=== PATIENT | male | born 1950 | race Caucasian/White ===

== ENCOUNTER → 2017-02-08 | Outpatient (CLI) | payer BC ==
[~2017-02-08] MED LIST: ACET-1311 PO; AMOX875T PO; AMR2 PO; CETI10TA84 PO; DOXY100C2 PO; LSN25 PO; METF-384 PO; TPRSR/50 PO; TRIATAB3 PO; XRL20 PO
--- NOTE | 2017-02-08 12:55 | DIAGNOSTIC IMAGING REPORT ---
KUB HISTORY: N20.1 Ureteral [id number] COMPARISON: KUB 02/10/2016. Abdomen and pelvis CT 07/03/2016. FINDINGS: The bowel gas pattern is unremarkable. There are no dilated loops of small bowel to suggest an obstruction. Prior cholecystectomy. Calcifications in the deep pelvis likely represent phleboliths. These remain unchanged. There is an 8 mm stone within the lower pole of the left kidney. This has slightly increased in size. No right renal or ureteral calculi identified. No pneumoperitoneum or pneumatosis. IMPRESSION: Left-sided nephrolithiasis. The lower pole stone within the left kidney has slightly increased in size and now measures 8 mm. Electronically signed by: Domingo Quintero M.D. 02/08/2017 12:53 PM Dictated Date/Time: 02/08/2017 12:50 PM
--- NOTE | 2017-02-24 12:12 | CODING QUERY MEDICAL NECESSITY ---
CQSUPPORTING DIAGNOSIS NEEDED A supporting diagnosis is required for the test/procedure performed on this patient in order for us to be reimbursed by the patient's insurance. Please provide a supporting diagnosis for the following test/procedure listed below next to the test name along with your signature. *If there is no additional diagnosis for this patient that would support the following test/procedure please document that below next to the test/procedure. Test(s)/Procedure(s) that require a supporting diagnosis: DOS 02/08/17 PROSTATE SPECIFIC TEST Provider Signature: Date: Thank you France Martínez [employer] Information Management Once completed, please kindly fax back to [phone] For questions please call [phone]
== END | disposition home or self-care (01) ==
LOC: C.RAD 11:48
PROVIDERS: ATTEND Urology
DX: N20.1 Calculus of ureter (principal); R97.20 Elevated prostate specific antigen [PSA]; N40.0 Benign prostatic hyperplasia without lower urinary tract symptoms

== ENCOUNTER → 2017-04-11 | Outpatient (CLI) | payer BC | END | disposition home or self-care (01) | LOC: C.PATHSPEC 17:11 | PROVIDERS: ATTEND Urology | DX: R97.20 Elevated prostate specific antigen [PSA] (principal) ==

== ENCOUNTER 2017-06-18 08:34 | Emergency (ER) | payer BC ==
[~2017-06-18] VITALS: Ht 188 cm; Wt 101.4 kg
[~2017-06-18 08:34] MED LIST changes: -AMOX875T PO; -AMR2 PO; -LSN25 PO; -METF-384 PO; -TRIATAB3 PO; -XRL20 PO
[2017-06-18 08:38] VITALS: TEMP 36.7; Ht 188 cm; Wt 101.4 kg
[2017-06-18] MEDS ORDERED: AMR2 PO (08:52)
[2017-06-18] MEDS ORDERED: LSN25 PO (08:52)
[2017-06-18] MEDS ORDERED: XRL20 PO (08:52)
[2017-06-18] MEDS ORDERED: METF-384 PO (08:52)
[2017-06-18] MEDS ORDERED: TRIATAB3 PO (08:52)
[2017-06-18] MEDS ORDERED: OPTIRAY 320 IV PRN (09:15)
[2017-06-18 09:36] LABS: BASO % 0.3 %; BASO ABS # 0.03 K/uL (0-0.2); COMPLETE YES; EOS % 0.6 %; HEMATOCRIT 44.3 % (42-52); IG% 0.8 %; LYMPH % 24.2 %; LYMPH ABS # 2.26 K/uL (1.2-3.4); MEAN CELL VOLUME 90.4 fL (80-100); MEAN CORPUSCULAR HEMOGLOBIN 28.6 pg (25-34); MEAN CORPUSCULAR HGB CONC 31.6 g/dl (32-36); MEAN PLATELET VOLUME 9.6 fL (7.4-10.4); MONO % 11.4 %; NEUT % 62.7 %; PLATELET COUNT 356 K/uL (130-400); WHITE BLOOD COUNT 9.33 K/uL (4.8-10.8)
[2017-06-18 09:37] LABS: URINE APPEARANCE CLEAR (CLEAR); URINE BILIRUBIN NEG (NEG); URINE COLOR YELLOW; URINE NITRITE NEG (NEG); URINE SPECIFIC GRAVITY 1.026 (1.000-1.030); UROBILINOGEN NEG (NEG); ZZUR CULT IF INDIC CLEAN CATCH NO
[2017-06-18 09:43] LABS: MANUAL MICROSCOPIC REQUIRED? NO; REVIEW REQ? NO
[2017-06-18 09:44] LABS: BUN/CREATININE RATIO 18.5 (10-20); CALCIUM 9.6 mg/dl (8.5-10.1); CREATININE 1.3 mg/dl (0.60-1.40); POTASSIUM 4.2 mmol/L (3.5-5.1)
[2017-06-18 09:47] LABS: ALB/GLOB RATIO 0.7 (0.9-2)
[2017-06-18] MEDS ORDERED: ONDANSETRON INJ 2 MG/ML 2 ML VIAL IV STA (09:56)
--- NOTE | 2017-06-18 10:50 | DIAGNOSTIC IMAGING REPORT ---
ABD/PELVIS IV CONTRAST ONLY HISTORY: 66 years-old Male RUQ pain, palpable mass, hx liver abscess acute right upper quadrant abdominal pain with palpable mass. COMPARISON: CT abdomen and pelvis 07/15/2016 and 07/03/2016 TECHNIQUE: Multiple axial CT images of the abdomen and pelvis were obtained following the intravenous administration of 94 mL Optiray 320. A dose lowering technique was used consistent with the principals of SID. FINDINGS: There is minimal dependent basilar atelectasis. No pneumoperitoneum. The imaged inferior cardiac chambers are unremarkable. Scattered low attenuating lesions throughout the liver, largest of which measures 12 mm within the hepatic dome. Unchanged suggesting hepatic cysts. Prior cholecystectomy. Spleen, and adrenal glands are within normal limits. Circumscribed low attenuating cystic lesion of the posterior pancreatic body is seen on image 140 measuring 11 x 9 mm it is unchanged from comparison study 07/03/2016 suggesting sidebranch IPMN. Subcentimeter low attenuating lesions of the kidneys are too small to characterize and suggest cysts. Bilateral renal calculi are seen, largest of which measures 8 mm within the interpolar left kidney. No ureteral calculi or hydronephrosis. Layering calcifications are seen within the urinary bladder measuring up to 10 mm on the left. Prostate is enlarged. The abdominal aorta is normal in course and caliber. No bulky adenopathy. There is no bowel obstruction. Noninflamed colonic diverticula are present. The appendix appears normal. There is a thick-walled peripherally enhancing predominantly unilocular-appearing collection of the right paramedian abdominal wall, 5.4 x 8.4 x 6.1 cm with moderate degree of surrounding phlegmonous change and thickening of the right rectus musculature. This extends intra-abdominally with moderate degree of surrounding inflammatory stranding within the adjacent mesentery. There is wall thickening of the adjacent transverse colon, likely reactive. No pneumoperitoneum. Small ventral upper abdominal right paracentral subxiphoid fat filled hernia is seen, diastases 1.5 cm. Partially imaged soft tissue attenuating 2.3 x 1.7 cm lesion of the midline lower thoracic region at the level of T7 is noted, nonspecific. Bones are intact. IMPRESSION: 1. Large thick-walled collection of the right paramedian abdominal wall involving the rectus musculature with intraperitoneal extension measures up to 5.4 x 8.4 x 6.1 cm with moderate degree of surrounding phlegmonous change and thickening of the right rectus musculature is suspicious for abscess. 2. Wall thickening of the adjacent transverse colon is likely reactive. 3. No pneumoperitoneum or pneumatosis. 4. Bilateral nephrolithiasis. 5. Prior cholecystectomy. 6. Partially imaged circumscribed soft tissue attenuating lesion of the subcutaneous tissues overlying the midline at T7 is nonspecific and may reflect a sebaceous cyst. Correlate with clinical exam. The above report was generated using voice recognition software. It may contain grammatical, syntax or spelling errors. Electronically signed by: Meng Deluca M.D. 06/18/2017 10:48 AM Dictated Date/Time: 06/18/2017 10:34 AM
[2017-06-18] MEDS ORDERED: AMOX875T PO (12:19)
--- NOTE | 2017-06-18 12:20 | EMERGENCY ROOM VISIT NOTE ---
History First contact with patient: 08:42 Chief Complaint: ABDOMINAL PAIN Stated Complaint: ABD. PAIN, POSSIBLY A MASS Nursing Triage Summary: Patient reports right upper and mid abd pain denies any associated symptoms. Patient reports history of abcess on his liver a year ago states he had surgery at [facility] for that and has not had any problems since that time. Patient abd is mostly soft to palpation but there is a hard palpable area on right upper abd. History of Present Illness The patient is a 66 year old male who presents to the Emergency Room with complaints of right upper quadrant abdominal pain which began 2 days ago. The patient states that he has had a gradual onset of abdominal pain and palpable mass with past 2 days. He states the pain is a 2/10 at rest and increases to a 6/10 with bending over or moving. He denies any associated nausea/vomiting, changes in bowel movements, urinary symptoms or fevers. The patient has a history of an abscess on his liver which was drained at [facility] one year ago. He states he has had no issues for this since then. The patient has a history of cholecystectomy and IR drainage of the liver abscess, but no other abdominal surgeries. He denies IV drug use. Review of Systems A complete 10 point review of systems was reviewed with the patient with pertinent positives and negatives as per history of present illness. All else were negative. Past Medical/Surgical History Medical Problems: (1) [id number] (2) Acute cholecystitis (3) Atrial fibrillation (4) Diabetes (5) Flank pain (6) Flank pain (7) Hives (8) Kidney stone (9) Kidney stones (10) Mnire's disease Surgical Problems: (1) Hx of cholecystectomy Family History Cancer Diabetes mellitus Kidney disease Kidney stones Seizures Social History Smoking Status: Never Smoker Alcohol Use: none Drug Use: none Marital Status: Housing Status: lives with significant other Occupation Status: unemployed Current/Historical Medications Scheduled Amoxicillin & Pot Clavulanate (Augmentin 875-125 mg), 1 TAB PO BID Glimepiride (Glimepiride), 2 MG PO BID Lisinopril (Lisinopril), 2.5 MG PO DAILY Metformin Hcl (Glucophage), 1,000 MG PO BID Metoprolol Succinate (Metoprolol Succinate ER), 50 MG PO DAILY Rivaroxaban (Xarelto), 20 MG PO DAILY Triamterene/Hctz (Triamterene/Hctz 37.5-25MG), 1 TAB PO DAILY Scheduled PRN Cetirizine (Zyrtec), 10 MG PO DAILY PRN for ALLERGIC REACTION Physical Exam Vital Signs Date Time Temp Pulse Resp B/P (MAP) Pulse Ox O2 Delivery O2 Flow Rate FiO2 06/18/17 12:38 67 20 98/65 98 06/18/17 10:45 65 106/65 95 Room Air 06/18/17 08:38 36.7 70 18 118/88 94 Room Air Physical Exam VITALS: Vitals are noted on the nurse's note and reviewed by myself. Vital signs stable. GENERAL: This is a 66-year-old male, in no acute distress, nondiaphoretic, well- developed well-nourished. SKIN: No erythema or induration. No rashes. EYES: Pupils equal round and reactive to light and accommodation. MOUTH: Mucous membranes moist. HEART: Regular rate and rhythm without murmurs gallops or rubs. LUNGS: Clear to auscultation bilaterally without wheezes, rales or rhonchi. ABDOMEN: Positive bowel sounds x 4. There is a palpable mass to the right of the epigastric region with tenderness to palpation. The area is slightly warm to touch. There is no overlying erythema or induration. The abdomen is otherwise soft and nontender. NEURO: Patient was alert and oriented to person place and time. Medical Decision & Procedures ER Provider Diagnostic Interpretation: ABD/PELVIS IV CONTRAST ONLY HISTORY: 66 years-old Male RUQ pain, palpable mass, hx liver abscess acute right upper quadrant abdominal pain with palpable mass. COMPARISON: CT abdomen and pelvis 07/15/2016 and 07/03/2016 TECHNIQUE: Multiple axial CT images of the abdomen and pelvis were obtained following the intravenous administration of 94 mL Optiray 320. A dose lowering technique was used consistent with the principals of ALARA. FINDINGS: There is minimal dependent basilar atelectasis. No pneumoperitoneum. The imaged inferior cardiac chambers are unremarkable. Scattered low attenuating lesions throughout the liver, largest of which measures 12 mm within the hepatic dome. Unchanged suggesting hepatic cysts. Prior cholecystectomy. Spleen, and adrenal glands are within normal limits. Circumscribed low attenuating cystic lesion of the posterior pancreatic body is seen on image 140 measuring 11 x 9 mm it is unchanged from comparison study 07/03/2016 suggesting sidebranch IPMN. Subcentimeter low attenuating lesions of the kidneys are too small to characterize and suggest cysts. Bilateral renal calculi are seen, largest of which measures 8 mm within the interpolar left kidney. No ureteral calculi or hydronephrosis. Layering calcifications are seen within the urinary bladder measuring up to 10 mm on the left. Prostate is enlarged. The abdominal aorta is normal in course and caliber. No bulky adenopathy. There is no bowel obstruction. Noninflamed colonic diverticula are present. The appendix appears normal. There is a thick-walled peripherally enhancing predominantly unilocular-appearing collection of the right paramedian abdominal wall, 5.4 x 8.4 x 6.1 cm with moderate degree of surrounding phlegmonous change and thickening of the right rectus musculature. This extends intra-abdominally with moderate degree of surrounding inflammatory stranding within the adjacent mesentery. There is wall thickening of the adjacent transverse colon, likely reactive. No pneumoperitoneum. Small ventral upper abdominal right paracentral subxiphoid fat filled hernia is seen, diastases 1.5 cm. Partially imaged soft tissue attenuating 2.3 x 1.7 cm lesion of the midline lower thoracic region at the level of T7 is noted, nonspecific. Bones are intact. IMPRESSION: 1. Large thick-walled collection of the right paramedian abdominal wall involving the rectus musculature with intraperitoneal extension measures up to 5.4 x 8.4 x 6.1 cm with moderate degree of surrounding phlegmonous change and thickening of the right rectus musculature is suspicious for abscess. 2. Wall thickening of the adjacent transverse colon is likely reactive. 3. No pneumoperitoneum or pneumatosis. 4. Bilateral nephrolithiasis. 5. Prior cholecystectomy. 6. Partially imaged circumscribed soft tissue attenuating lesion of the subcutaneous tissues overlying the midline at T7 is nonspecific and may reflect a sebaceous cyst. Correlate with clinical exam. Laboratory Results 06/18/17 09:11 Red Blood Count 4.90, Mean Corpuscular Volume 90.4, Mean Corpuscular Hemoglobin 28.6, Mean Corpuscular Hemoglobin Concent 31.6, Mean Platelet Volume 9.6, Neutrophils (%) (Auto) 62.7, Lymphocytes (%) (Auto) 24.2, Monocytes (%) (Auto) 11.4, Eosinophils (%) (Auto) 0.6, Basophils (%) (Auto) 0.3, Neutrophils # (Auto ) 5.85, Lymphocytes # (Auto) 2.26, Monocytes # (Auto) 1.06, Eosinophils # (Auto ) 0.06, Basophils # (Auto) 0.03 06/18/17 09:11 Test 06/18/17 09:05 06/18/17 09:11 Urine Color YELLOW Urine Appearance CLEAR (CLEAR) Urine pH 5.0 (4.5-7.5) Urine Specific [place] 1.026 (1.000-1.030) Urine Protein NEG (NEG) Urine Glucose (UA) NEG (NEG) Urine Ketones NEG (NEG) Urine Occult Blood NEG (NEG) Urine Nitrite NEG (NEG) Urine Bilirubin NEG (NEG) Urine Urobilinogen NEG (NEG) Urine Leukocyte Esterase NEG (NEG) White Blood Count 9.33 K/uL (4.8-10.8) Red Blood Count 4.90 M/uL (4.7-6.1) Hemoglobin 14.0 g/dL (14.0-18.0) Hematocrit 44.3 % (42-52) Mean Corpuscular Volume 90.4 fL (80-100) Mean Corpuscular Hemoglobin 28.6 pg (25-34) Mean Corpuscular Hemoglobin Concent 31.6 g/dl (32-36) Platelet Count 356 K/uL (130-400) Mean Platelet Volume 9.6 fL (7.4-10.4) Neutrophils (%) (Auto) 62.7 % Lymphocytes (%) (Auto) 24.2 % Monocytes (%) (Auto) 11.4 % Eosinophils (%) (Auto) 0.6 % Basophils (%) (Auto) 0.3 % Neutrophils # (Auto) 5.85 K/uL (1.4-6.5) Lymphocytes # (Auto) 2.26 K/uL (1.2-3.4) Monocytes # (Auto) 1.06 K/uL (0.11-0.59) Eosinophils # (Auto) 0.06 K/uL (0-0.5) Basophils # (Auto) 0.03 K/uL (0-0.2) RDW Standard Deviation 48.2 fL (36.4-46.3) RDW Coefficient of Variation 14.5 % (11.5-14.5) Immature Granulocyte % (Auto) 0.8 % Immature Granulocyte # (Auto) 0.07 K/uL (0.00-0.02) Anion Gap 6.0 mmol/L (3-11) Est Creatinine Clear Calc Drug Dose 73.0 ml/min Estimated GFR () 66.8 Estimated GFR (Non- 57.7 BUN/Creatinine Ratio 18.5 (10-20) Calcium Level 9.6 mg/dl (8.5-10.1) Total Bilirubin 0.5 mg/dl (0.2-1) Aspartate Amino Transf (AST/SGOT) 14 U/L (15-37) Alanine Aminotransferase (ALT/SGPT) 16 U/L (12-78) Alkaline Phosphatase 57 U/L (45-117) Total Protein 7.8 gm/dl (6.4-8.2) Albumin 3.2 gm/dl (3.4-5.0) Globulin 4.6 gm/dl (2.5-4.0) Albumin/Globulin Ratio 0.7 (0.9-2) Lipase 147 U/L (73-393) Medications Administered Medications (Trade) Dose Ordered Sig/Tila Route Start Time Stop Time Status Last Admin Dose Admin Ondansetron HCl (Zofran Inj) 4 mg NOW STAT IV 06/18/17 09:56 06/18/17 09:57 DC 06/18/17 10:01 4 MG ED Course The patient was evaluated as above. Labs were drawn and IV access was obtained. Patient was medicated with 4 mg Zofran prior to CT. CT of the abdomen and pelvis was performed and read by radiology as above. Case was discussed with Dr. Mccollum, General surgery. He felt that the abscess should be drained by IR at [facility]. He does not feel this needs to be done on an emergent basis. Case was discussed with Dr. Conrad at [facility], who recommended sending the patient home on antibiotics. Their office will contact him for follow-up this week. Patient was reevaluated and findings were discussed. The patient was agreeable to this treatment plan. Discharge instructions were reviewed with the patient. The patient verbalized understanding of my assessment and treatment plan and was discharged home in good condition. Medical Decision Differential diagnosis includes intra-abdominal abscess, abdominal mass, diverticulitis, pneumoperitoneum, among others. The patient is a 66-year-old male who presents today complaining of abdominal pain. The patient was seen here in June of last year and at that time was diagnosed with a liver mass. He was transferred to [facility] for drainage and at that time was diagnosed with an abscess. He states he has had no issues with this since then. On exam today, the patient has a palpable mass in the abdomen. There are no overlying skin changes. Labs revealed no leukocytosis or concerning electrolyte abnormalities. CT showed an abscess within the abdominal rectus rectus muscle with extension into the peritoneum. He is afebrile and nontoxic in appearance. Case was discussed first with our general surgeon, then the general surgeon on-call at [facility], Dr. Conrad. She felt that as long as the patient was not septic and did not have overlying skin changes, he could be discharged home on antibiotics to follow-up in the office next week. She first recommended Cipro and Flagyl, however the patient has allergies to these. I discussed this with the pharmacist, who recommended Augmentin. The patient was advised to return here for overlying skin changes, fevers, vomiting , worsening pain or any other new/concerning symptoms. He was given a disc of his CT scan. Based on the patient's presentation and work up, I feel the patient is stable for outpatient treatment. The patient was educated to return to the emergency department for any worsening of their current condition or new/concerning symptoms. He will follow up with [facility]. The patient's case was reviewed with Dr. Villalta, ED attending physician, who agreed with my assessment and treatment plan. Medication Reconcilliation Current Medication List: was personally reviewed by me Blood Pressure Screening Patient's blood pressure: Normal blood pressure Impression Primary Impression: Abscess of abdominal wall Departure Information Dispostion Home / Self-Care Condition GOOD Prescriptions Amoxicillin & Pot Clavulanate (Augmentin 875-125 mg) 1 Tab Tab 1 TAB PO BID for 14 Days, #28 TAB Prov: Mee Cr PA-C 06/18/17 [address]errals Dragan Stevenson M.D. (PCP) Patient Instructions My [facility] Additional Instructions You were prescribed Augmentin to be taken twice daily as prescribed. This is an antibiotic. All antibiotics have the potential to cause diarrhea. Stop this medication and contact a medical provider if you were to develop any significant adverse side effects including: wheezing, shortness of breath, passing out, vomiting, or a diffuse rash. Always take antibiotics as directed and COMPLETE the ENTIRE course regardless of the improvement of your symptoms. For pain control, you can use the following [id number] medicines (if >12 yo): - Regular strength (325mg/tab) Tylenol (acetaminophen) 2 tabs every 4-6 hours as needed. Do not exceed 12 tablets in a 24 hour period. Avoid taking more than 4 grams (4000 mg) of Tylenol per day. This includes any other sources of acetaminophen you may take on a regular basis. - Regular strength (200 mg/tab) Advil (ibuprofen) 1-2 tabs every 4-6 hours as needed. Do not exceed a dose of 3200 mg per day. [facility] should be calling you early this week to schedule a follow-up appointment. Return to the emergency department immediately if you have worsening pain, skin changes (redness) overlying the mass, fevers, vomiting or any other new/ concerning symptoms.
[2017-06-18 12:38] VITALS: BP 98/65; PULSE 67; O2SAT 98
== END 2017-06-18 12:41 | disposition home or self-care (01) ==
LOC: C.EDB 08:35
DX: L02.211 Cutaneous abscess of abdominal wall (principal); E11.9 Type 2 diabetes mellitus without complications; I48.91 Unspecified atrial fibrillation; H81.09 Meniere's disease, unspecified ear; Z87.442 Personal history of urinary calculi; Z90.49 Acquired absence of other specified parts of digestive tract; Z98.890 Other specified postprocedural states; Z83.3 Family history of diabetes mellitus; Z84.1 Family history of disorders of kidney and ureter; Z82.0 Family history of epilepsy and other diseases of the nervous system; Z79.01 Long term (current) use of anticoagulants; Z79.84 Long term (current) use of oral hypoglycemic drugs

== ENCOUNTER → 2017-06-30 | Outpatient (CLI) | payer BC ==
[~2017-06-30] MED LIST changes: -ACET-1311 PO; +AMOX875T PO; +AMR2 PO; -DOXY100C2 PO; +LSN25 PO; +METF-384 PO; +TRIATAB3 PO; +XRL20 PO
--- NOTE | 2017-06-30 09:16 | DIAGNOSTIC IMAGING REPORT ---
ABDOMEN LIMITED (US) CLINICAL HISTORY: 66 years-old Male presenting with INTERABDOMINAL ABSCESS, CHECK FOR RESOLUTION. TECHNIQUE: Real-time grayscale ultrasound imaging of the right abdomen was performed for a focal examination at the site of clinical interest. Color Doppler was also performed. COMPARISON: Correlation made to CT from 06/18/2017. FINDINGS: At the site of clinical concern in the superficial right abdomen a drain is noted within a collapsed hypoechoic collection measuring 7.6 x 1.7 x 9.8 cm. This collection is avascular and consistent with known abscess. In comparison to prior CT, the AP dimension has significantly decreased with reduction of overall volume. IMPRESSION: 1. Interval decreased volume of the superficial right abdominal abscess with a drain in place. Electronically signed by: Manny Whitfield M.D. 06/30/2017 9:15 AM Dictated Date/Time: 06/30/2017 9:12 AM
== END | disposition home or self-care (01) ==
LOC: C.ULTR 08:27
PROVIDERS: ATTEND Surgery Surgical Oncology
DX: K65.1 Peritoneal abscess (principal)

== ENCOUNTER 2017-11-12 10:08 | Emergency (ER) | payer BC ==
[~2017-11-12] VITALS: Ht 188 cm; Wt 110.5 kg
[~2017-11-12 10:08] MED LIST changes: -AMOX875T PO
[2017-11-12 10:19] VITALS: TEMP 36.4; Ht 188 cm; Wt 110.5 kg
[2017-11-12] MEDS ORDERED: ACET325T96 PO (10:37)
--- NOTE | 2017-11-12 11:04 | DIAGNOSTIC IMAGING REPORT ---
R KNEE 3 VIEWS CLINICAL HISTORY: Right knee pain following injury. COMPARISON: None FINDINGS: Alignment of the right knee is anatomic. No acute fracture is identified. There is a small right knee joint effusion. There is moderate pre and infrapatellar soft tissue swelling. Extensive vascular calcification is present. There is mild osteophytosis of the right knee. IMPRESSION: 1. No acute fracture. 2. Small right knee joint effusion. 3. Moderate pre and infrapatellar soft tissue swelling. Electronically signed by: Jim Mac M.D. 11/12/2017 11:03 AM Dictated Date/Time: 11/12/2017 11:01 AM
[2017-11-12] MEDS ORDERED: CEPH500C PO (11:36)
[2017-11-12 11:49] VITALS: BP 121/79; PULSE 68; O2SAT 95
--- NOTE | 2017-11-12 17:16 | EMERGENCY ROOM VISIT NOTE ---
History First contact with patient: 10:22 Chief Complaint: KNEEPAIN Stated Complaint: R KNEE PAIN History of Present Illness The patient is a 66 year old male who presents to the Emergency Room with complaints of persistent right knee bruising and swelling. The patient reports that he tripped and fell 2 days ago while playing pickle ball. He went to the [facility] [address] [facility] walk-in clinic this morning and was referred here for possible increasing bleeding secondary to Xarelto use. The patient has a history of atrial fibrillation. The patient reports that most of the pain is on the front of the knee. He denies any pain extending into the leg or thigh. Denies paresthesias or numbness of the right lower extremity. The patient rates his discomfort a 4 out of 10. The patient has been taking Tylenol 325 mg as needed, and has had decent pain relief with this treatment. Review of Systems 10 system review was performed and was negative except for pertinent positives and negatives as indicated in history of present illness Past Medical/Surgical History Medical Problems: (1) [address] (2) Acute cholecystitis (3) Atrial fibrillation (4) Diabetes (5) Flank pain (6) Flank pain (7) Hives (8) Kidney stone (9) Kidney stones (10) Mnire's disease Surgical Problems: (1) Hx of cholecystectomy Family History Cancer Diabetes mellitus Kidney disease Kidney stones Seizures Social History Smoking Status: Never Smoker Alcohol Use: none Drug Use: none Marital Status: Housing Status: lives with significant other Occupation Status: unemployed Current/Historical Medications Scheduled Cephalexin Monohydrate (Keflex), 500 MG PO QID Glimepiride (Glimepiride), 2 MG PO BID Lisinopril (Lisinopril), 2.5 MG PO DAILY Metformin Hcl (Glucophage), 1,000 MG PO BID Metoprolol Succinate (Metoprolol Succinate ER), 50 MG PO DAILY Rivaroxaban (Xarelto), 20 MG PO DAILY Triamterene/Hctz (Triamterene/Hctz 37.5-25MG), 1 TAB PO DAILY Scheduled PRN Acetaminophen Tab (Tylenol), 650 MG PO UD PRN for Pain Cetirizine (Zyrtec), 10 MG PO DAILY PRN for ALLERGIC REACTION Physical Exam Vital Signs Date Time Temp Pulse Resp B/P (MAP) Pulse Ox O2 Delivery O2 Flow Rate FiO2 11/12/17 11:49 68 18 121/79 95 Room Air 11/12/17 10:19 36.4 69 17 118/73 94 Room Air Physical Exam CONSTITUTIONAL: Healthy and well nourished. Alert and oriented X 3 with positive affect. Patient does not appear in any acute distress. HEENT: Normocephalic, atraumatic. Pupils equal, round and reactive. NECK: Full active range of motion without discomfort. MUSCULOSKELETAL: Examination of the right knee shows an anterolateral hematoma with ecchymosis. No open wounds or erythema noted. No obvious joint effusion appreciated. The patient has passive range of motion of 90. Negative anterior draw, negative posterior draw. Collateral ligaments are intact. No popliteal masses. Patient has no significant peripatellar tenderness to palpation. Patient is able to straight leg raise. Pedal pulses are intact. INTEGUMENTARY: No rash or other significant dermatologic conditions noted. NEUROLOGIC: No focal neurologic deficits noted. Right lower extremity is sensory intact. Medical Decision & Procedures ER Provider Diagnostic Interpretation: My interpretation of right knee x-rays does not show any acute fractures or dislocations. A small joint effusion is noted, with other soft tissue edema. Radiologist report is as follows: R KNEE 3 VIEWS CLINICAL HISTORY: Right knee pain following injury. COMPARISON: None FINDINGS: Alignment of the right knee is anatomic. No acute fracture is identified. There is a small right knee joint effusion. There is moderate pre and infrapatellar soft tissue swelling. Extensive vascular calcification is present. There is mild osteophytosis of the right knee. IMPRESSION: 1. No acute fracture. 2. Small right knee joint effusion. 3. Moderate pre and infrapatellar soft tissue swelling. ED Course Patient history and physical exam were performed. Nurse's notes were reviewed. Vital signs were reviewed and were normal. The patient refused any analgesics on initial exam. X-rays of the right knee shows a small joint effusion without any obvious fracture or dislocation. The patient was advised that his clinical exam is most consistent with an anterior hematoma. However, and cannot rule out the possibility of other joint injury. An Irwin wrap and knee immobilizer were applied. The patient was encouraged to intermittently apply ice to the knee. Tylenol if needed for additional pain relief. The patient refused any further prescription analgesics. He was encouraged to follow-up with orthopedics for further reevaluation and management. The patient was happy with plan of care, voiced understanding of all discharge instructions, and denied any significant pain at the conclusion of my exam. Medical Decision Medication Reconcilliation Current Medication List: was personally reviewed by me Blood Pressure Screening Patient's blood pressure: Normal blood pressure Impression Primary Impression: Traumatic hematoma of right knee Departure Information Prescriptions Cephalexin Monohydrate (Keflex) 500 Mg Cap 500 MG PO QID for 7 Days, #28 CAP Prov: Orville Jennings PA 11/12/17 Referrals Dragan Stevenson M.D. (PCP) Patient Instructions My [facility] Problem Qualifiers Primary Impression: Traumatic hematoma of right knee Encounter type: initial encounter Qualified Codes: S80.01XA - Contusion of right knee, initial encounter
== END 2017-11-12 11:50 | disposition home or self-care (01) ==
LOC: C.EDB 10:10 → C.EDC 11:50
DX: S80.01XA Contusion of right knee, initial encounter (principal); W18.09XA Striking against other object with subsequent fall, initial encounter; Y93.89 Activity, other specified; Y99.8 Other external cause status; I48.91 Unspecified atrial fibrillation; E11.9 Type 2 diabetes mellitus without complications; H81.09 Meniere's disease, unspecified ear; Z87.442 Personal history of urinary calculi; Z90.49 Acquired absence of other specified parts of digestive tract; Z83.3 Family history of diabetes mellitus; Z84.1 Family history of disorders of kidney and ureter; Z82.0 Family history of epilepsy and other diseases of the nervous system; Z79.01 Long term (current) use of anticoagulants; Z79.84 Long term (current) use of oral hypoglycemic drugs

== ENCOUNTER → 2018-05-10 | Outpatient (CLI) | payer OTHER ==
[~2018-05-10] MED LIST changes: +ACET-1693 PO
--- NOTE | 2018-05-10 16:05 | DIAGNOSTIC IMAGING REPORT ---
KUB HISTORY: Left-sided NEPHROLITHIASIS COMPARISON: KUB 02/08/2017. FINDINGS: The bowel gas pattern is unremarkable. There are no dilated loops of small bowel to suggest an obstruction. Slight increase in size in the 9 mm stone within the lower pole the left kidney. No definite right renal calculi. Cholecystectomy. No ureteral calculi. Calcifications in the deep pelvis likely represent phleboliths. No pneumoperitoneum or pneumatosis. IMPRESSION: Slight increase in size in the 9 mm stone within the lower pole of the left kidney. No ureteral calculi. Electronically signed by: Domingo Quintero M.D. 05/10/2018 4:03 PM Dictated Date/Time: 05/10/2018 4:02 PM
== END | disposition home or self-care (01) ==
LOC: C.RAD 15:22
PROVIDERS: ATTEND Nurse Practitioner Adult Health
DX: N20.0 Calculus of kidney (principal)

== ENCOUNTER 2021-11-14 12:41 | Inpatient (IN) ==
[2021-11-14] MEDS ORDERED: MoRPHine SULFATE 4 MG/ML 1 ML CARP\\VIAL IV PRN (13:27)
[2021-11-14] MEDS ORDERED: ONDANSETRON INJ 2 MG/ML 2 ML VIAL IV STA (13:27)
[2021-11-14] MEDS ORDERED: SODIUM CHLORIDE 0.9% 1000ML 1,000 ML IV STA (13:27)
--- NOTE | 2021-11-14 13:34 | Emergency Department Note ---
Impression & Plan Acute pyelonephritis, Hydronephrosis, Atrial fibrillation with rapid ventricular response, Acute hyperglycemia ED Provider Note NAME: BEATRIS CHUN AGE: 70 SEX: M : 1950 ARRIVES VIA: Walk-In INFORMANT: Patient, ED PROVIDER(S): Dragan Croea DO CHIEF COMPLAINT: Generalized illness HPI: The patient is a 70-year-old male who presented to emergency department for an evaluation of generalized illness. The patient has a history of a large kidney stone that was on the left. This was treated with lithotripsy. He had multiple stone fragments removed by urology. He then had a stent placed. The patient had the stent removed on Tuesday of this week. He states that ever since that time he has not been doing well. He feels though his blood sugars been elevated. He is not been noticing any fevers. He noticed some flank pain initially when the stent was removed but at this time he complains of no flank pain. The patient has had some nausea but no vomiting. He has had decreased p.o. intake. He is noticed some elevation in his blood sugar readings. He called urology and was started on an antibiotic. He was received 1 dose of the antibiotic. He called and was referred to the emergency department today for further evaluation. ROS: See above HPI for pertinent positives & negatives. A total of 10 systems reviewed and were otherwise negative. PAST MEDICAL HISTORY: See Below PAST SURGICAL HISTORY: See Below FAMILY HISTORY: See Below SOCIAL HISTORY: See Below HOME MEDICATIONS: See Below ALLERGIES: See Below VITALS: See Below PHYSICAL EXAMINATION: GENERAL: The patient is awake and alert. He is somewhat listless appearing but does not appear to be uncomfortable. EYES: The conjunctivae are clear. The pupils are round and reactive. EARS, NOSE, MOUTH AND THROAT: The nose is without any evidence of any deformity. NECK: The neck is nontender and supple. RESPIRATORY: Normal respiratory effort is noted there is no evidence of wheezing rhonchi or rales CARDIOVASCULAR: Regular rate and rhythm noted there no murmurs rubs or gallops normal S1 normal S2. GASTROINTESTINAL: The abdomen is soft. Abdomen is nontender. BACK: No midline tenderness or or step-off noted range of motion in flexion extension as well as rotation no signs of muscle spasm noted MUSCULOSKELETAL/EXTREMITIES: There is no evidence of gross deformity full range of motion is noted in the hips and shoulders. SKIN: There is no obvious evidence of any rash. There are no petechiae, pallor or cyanosis noted. NEUROLOGIC: Patient is awake and oriented x3. Strength was symmetric. MEDICAL DECISION MAKING: The patient is a 70-year-old male who presented to emergency department for an evaluation of generalized weakness. The patient has a history of kidney stones. He recently had lithotripsy with stent placement. The stent was recently removed a few days ago. The patient has had generalized weakness and not feeling well. He was found to have borderline low blood pressure on arrival. He was treated with IV fluids. His urinalysis appears to be consistent with infection. He was treated with IV antibiotics. I discussed the patient's laboratory and radiographic studies with him. IV hydration he was able to receive a dose of calcium channel vinicius for the rapid atrial fibrillation. He continued to have episodes of A. fib with RVR. There was also some aberrancy noted. I discussed this case with the on-call [facility] urologist. I also will discuss his case with the [facility] hospitalist group. I feel the patient may benefit from inpatient management given his history of diabetes and atrial fibrillation. He is currently not taking his blood thinner as it was held for the procedure. Triage Nursing notes reviewed. Prior medical records reviewed Vital Signs: reviewed and remarkable for tachycardia and fluctuating blood pressure. Differential diagnosis: Infection, dehydration, metabolic abnormality, hypo/hyperglycemia, electrolyte disturbance, anemia, hypoxia, cardiac sources, intracerebral event, toxicologic, neurologic, as well as other pathologies. ER treatment provided: See below Diagnostics interpreted by me: ECG: EKG was obtained in the emergency department. My interpretation is atrial fibrillation at 165 bpm. No PVCs were noted. Anterior Q waves were appreciated with poor R wave progression. This was compared to a tracing from 10/28/2021. Rapid atrial fibrillation has replaced sinus rhythm compared to the earlier tracing. A second tracing was obtained in the emergency department. The second tracing reveals sinus tachycardia at 103 bpm. Ectopic beats were noted. The QRS morphology appears change compared to the earlier tracing. Cardiac Monitoring: An order was placed for continuous cardiac monitoring. The monitor shows a rate of 149 bpm with rapid atrial fibrillation. Laboratory studies: As stated above and show below. Imaging studies: See below Consultation(s): I discussed this case with Dr. Harrington who is on-call for urology. I discussed this case with the [facility] hospitalist group. Past Med/Surg History Medical History BPH (benign prostatic hyperplasia) Degenerative arthritis of knee, bilateral Diabetes Hypertension Kidney stones Mnire's disease Obesity On anticoagulant therapy Paroxysmal atrial fibrillation Postoperative urgent ava in Jul 2015- asymptomatic episodes noted on loop recorder. Follows with Dr. Larkin Surgical History History of cholecystectomy History of cystoscopy with insertion of ureteral stent; history of lithotripsy History of prostate biopsy History of removal of ureteral stent History of tonsillectomy History of wisdom tooth extraction Status post placement of implantable loop recorder Implanted 2014 and explanted Oct 2018 Family History Father Cancer Other No family history of adverse response to anesthesia Social History Smoking Status: Never smoker Second Hand Exposure: No; Hx Alcohol Use: Yes Hx Substance Use: No Preferred Language: Upper Sorbian Communication Ability: Effective Consulting Practice Director Required: No Beliefs That Will Affect Care: None Current Living Situation: Spouse Feels Safe at Home: Yes Assistive Devices: Glasses Allergies Allergies Allergy/AdvReac Type Severity Reaction Status Date / Time Iodinated Contrast Media Allergy Severe NAUSEA & Verified 11/14/21 14:54 VOMIT pollen extracts Allergy Intermediate congestion Verified 11/14/21 14:54 adhesive Allergy Unknown RASH/BLISTE Verified 11/14/21 14:54 RS grass pollen Allergy Unknown Verified 11/14/21 14:54 tree and shrub pollen Allergy Unknown Verified 11/14/21 14:54 latex Allergy Rash Verified 11/14/21 14:54 ciprofloxacin AdvReac Intermediate DISORIENTAT Verified 11/14/21 14:54 ION metronidazole AdvReac Intermediate DISORIENTAT Verified 11/14/21 14:54 ION Home Meds Home Medications Medication Instructions Recorded Confirmed diclofenac sodium 75 mg 75 mg PO BID PRN 03/23/21 11/14/21 tablet,delayed release ciclopirox 0.77 % topical gel 1 applic TOPICAL BID 08/10/21 11/14/21 cetirizine 10 mg tablet (Zyrtec) 10 mg PO DAILY PRN 10/30/21 11/14/21 lisinopril 2.5 mg tablet 2.5 mg PO QPM 10/30/21 11/14/21 metformin 1,000 mg tablet 500 mg PO BID 10/30/21 11/14/21 metoprolol succinate 50 mg 50 mg PO QPM 10/30/21 11/14/21 tablet,extended release 24 hr rivaroxaban 20 mg tablet (Xarelto) 20 mg PO QPM 10/30/21 11/14/21 tamsulosin 0.4 mg capsule 0.4 mg PO QPM 10/30/21 11/14/21 triamterene 37.5 1 cap PO QPM 10/30/21 11/14/21 mg-hydrochlorothiazide 25 mg capsule acetaminophen 500 mg tablet 1,000 mg PO Q6H PRN 11/14/21 11/14/21 (Tylenol Extra Strength) insulin glargine 100 unit/mL (3 16 unit SUBCUT PM 11/14/21 11/14/21 mL) subcutaneous pen (Lantus Solostar U-100 Insulin) Previous Rx's Medication Instructions Recorded oxycodone-acetaminophen 7.5 mg-325 1 tab PO Q8H PRN #7 tab 11/05/21 mg tablet (Percocet) phenazopyridine 200 mg tablet 200 mg PO Q8H PRN #10 tab 11/05/21 (Pyridium) sulfamethoxazole 800 1 tab PO BID #10 tab 11/14/21 mg-trimethoprim 160 mg tablet (Bactrim DS) Results & Data (ED) Vital Signs Vital Signs - 24 hr 11/14/21 12:50 11/14/21 12:58 11/14/21 13:07 Temperature 36.9 C Temperature Source Temporal Artery Scan Oral Pulse Rate 56 L 99 H Pulse Rate from SpO2 Sensor 59 L Respiratory Rate 20 14 24 Respiratory Effort / Characteristics Non-Labored Respiratory Depth Normal Normal Blood Pressure 104/61 Blood Pressure Mean 75 Pulse Oximetry 96 96 96 Oxygen Delivery Method Room Air Sepsis Recent Fever Within 48 Hours No Sepsis New/Unexplained Change in Mental Status N/A Sepsis Action Taken by Nursing No Action Required 11/14/21 13:10 11/14/21 13:20 11/14/21 13:30 Temperature Temperature Source Pulse Rate 100 H 91 H 91 H Pulse Rate from SpO2 Sensor 61 80 67 Respiratory Rate 14 23 24 Respiratory Effort / Characteristics Respiratory Depth Blood Pressure 105/53 L Blood Pressure Mean 70 Pulse Oximetry 95 95 97 Oxygen Delivery Method Sepsis Recent Fever Within 48 Hours Sepsis New/Unexplained Change in Mental Status Sepsis Action Taken by Nursing 11/14/21 13:40 11/14/21 13:50 11/14/21 13:58 Temperature Temperature Source Pulse Rate 89 92 H Pulse Rate from SpO2 Sensor 64 86 Respiratory Rate 19 23 Respiratory Effort / Characteristics Respiratory Depth Blood Pressure Blood Pressure Mean Pulse Oximetry 94 94 95 Oxygen Delivery Method Room Air Sepsis Recent Fever Within 48 Hours Sepsis New/Unexplained Change in Mental Status Sepsis Action Taken by Nursing 11/14/21 14:00 11/14/21 14:10 11/14/21 14:20 Temperature Temperature Source Pulse Rate 155 H 89 89 Pulse Rate from SpO2 Sensor 139 H 77 81 Respiratory Rate 24 19 22 Respiratory Effort / Characteristics Respiratory Depth Blood Pressure 123/68 Blood Pressure Mean 86 Pulse Oximetry 95 94 95 Oxygen Delivery Method Sepsis Recent Fever Within 48 Hours Sepsis New/Unexplained Change in Mental Status Sepsis Action Taken by Nursing 11/14/21 14:30 11/14/21 15:10 11/14/21 15:11 Temperature Temperature Source Pulse Rate 87 149 H 148 H Pulse Rate from SpO2 Sensor 55 L 149 H Respiratory Rate 22 24 27 H Respiratory Effort / Characteristics Respiratory Depth Blood Pressure 145/81 H 108/82 Blood Pressure Mean 102 90 Pulse Oximetry 94 95 Oxygen Delivery Method Sepsis Recent Fever Within 48 Hours Sepsis New/Unexplained Change in Mental Status Sepsis Action Taken by Nursing 11/14/21 15:20 11/14/21 15:30 11/14/21 15:40 Temperature Temperature Source Pulse Rate 150 H 149 H 147 H Pulse Rate from SpO2 Sensor 149 H 148 H 148 H Respiratory Rate 23 23 23 Respiratory Effort / Characteristics Respiratory Depth Blood Pressure 110/84 Blood Pressure Mean 92 Pulse Oximetry 95 94 94 Oxygen Delivery Method Sepsis Recent Fever Within 48 Hours Sepsis New/Unexplained Change in Mental Status Sepsis Action Taken by Nursing 11/14/21 15:50 11/14/21 16:00 11/14/21 16:13 Temperature Temperature Source Pulse Rate 148 H 147 H 144 H Pulse Rate from SpO2 Sensor 150 H 148 H Respiratory Rate 27 H 27 H Respiratory Effort / Characteristics Respiratory Depth Blood Pressure 141/92 H Blood Pressure Mean 108 Pulse Oximetry 94 91 Oxygen Delivery Method Sepsis Recent Fever Within 48 Hours Sepsis New/Unexplained Change in Mental Status Sepsis Action Taken by Nursing 11/14/21 16:20 Temperature Temperature Source Pulse Rate 149 H Pulse Rate from SpO2 Sensor 150 H Respiratory Rate 26 H Respiratory Effort / Characteristics Respiratory Depth Blood Pressure Blood Pressure Mean Pulse Oximetry 95 Oxygen Delivery Method Sepsis Recent Fever Within 48 Hours Sepsis New/Unexplained Change in Mental Status Sepsis Action Taken by Detention Medications Current Medication List: was personally reviewed by me Laboratory Data Attestation: I reviewed the patient's lab results. Result diagrams: 11/14/21 13:55 11/14/21 13:55 Lab Results 11/14/21 11/14/21 11/14/21 Range/Units 13:05 13:55 13:55 WBC 20.58 H (4.8-10.8) K/uL RBC 4.00 L (4.7-6.1) M/uL Hgb 12.8 L (14.0-18.0) g/dL Hct 38.0 L (42-52) % MCV 95.0 (80-100) fL MCH 32.0 (25-34) pg MCHC 33.7 (32-36) g/dL RDW Std Deviation 48.3 H (36.4-46.3) fL RDW Coeff of Ministerio 14.0 (11.5-14.5) % Plt Count 210 (130-400) K/uL MPV 10.2 (7.4-10.4) fL Immature Gran % (Auto) 0.4 % Neut % (Auto) 80.1 % Lymph % (Auto) 6.9 % [place] % (Auto) 12.5 % Eos % (Auto) 0.0 % Baso % (Auto) 0.1 % Neut # (Auto) 16.49 H (1.4-6.5) K/uL Lymph # (Auto) 1.41 (1.2-3.4) K/uL [place]ett # (Auto) 2.57 H (0.11-0.59) K/uL Eos # (Auto) 0.00 (0-0.5) K/uL Baso # (Auto) 0.03 (0-0.2) K/uL Immature Gran # (Auto) 0.08 H (0.00-0.02) K/uL ESR (0-20) mm/hr PT 11.5 (9.0-12.0) Seconds INR 1.1 (0.9-1.1) APTT 27.6 (21.0-31.0) Seconds PTT Ratio 1.0 VBG pH (7.36-7.41) VBG pCO2 (38-50) mmHg VBG pO2 mmHg VBG HCO3 mmol/L VBG O2 Saturation % VBG Base Excess mEq/L Barometric Pressure mm/Hg Sodium (136-145) mmol/L Potassium (3.5-5.1) mmol/L Chloride (98-107) mmol/L Carbon Dioxide (21-32) mmol/L Anion Gap (3-11) BUN (6-23) mg/dl Creatinine (0.6-1.4) mg/dl Est Cr Clr Drug Dosing ml/min Est GFR ( Amer) ml/min Est GFR (Non-Af Amer) ml/min BUN/Creatinine Ratio (10-20) Glucose (70-99(Fasting)) mg/dl Calcium (8.5-10.1) mg/dl Magnesium (1.7-2.4) mg/dl Total Bilirubin (0.2-1.0) mg/dl AST (13-39) U/L ALT (7-52) U/L Alkaline Phosphatase (34-104) U/L Troponin I (0-0.04) ng/ml C-Reactive Protein (0-0.5) mg/dl Total Protein (6.0-8.3) gm/dl Albumin (3.4-5.0) gm/dl Globulin (2.5-4.0) gm/dl Albumin/Globulin Ratio (0.9-2) Lipase (11-82) U/L Urine Color Brown Urine Appearance Turbid A (Clear) Urine pH 5.0 (4.5-7.5) Ur Specific [place] 1.020 (1.000-1.030) Urine Protein 2+ H (Negative) Urine Glucose (UA) 2+ H (Negative) Urine Ketones Negative (Negative) Urine Blood 3+ H (Negative) Urine Nitrite Positive A (Negative) Urine Bilirubin 1+ H (Negative) Urine Urobilinogen Negative (Negative) Ur Leukocyte Esterase 2+ H (Negative) Urine WBC (Auto) 10-30 H (0-5) /hpf Urine RBC (Auto) >30 H (0-4) /hpf U Hyaline Cast (Auto) 1-5 (0-5) /lpf U Epithel Cells (Auto) 0-5 (0-5) /lpf Urine Bacteria (Auto) 2+ H (Negative) SARS-CoV-2, RNA, NAAT (NEGATIVE) 11/14/21 11/14/21 11/14/21 Range/Units 13:55 15:11 15:16 WBC (4.8-10.8) K/uL RBC (4.7-6.1) M/uL Hgb (14.0-18.0) g/dL Hct (42-52) % MCV (80-100) fL MCH (25-34) pg MCHC (32-36) g/dL RDW Std Deviation (36.4-46.3) fL RDW Coeff of Ministerio (11.5-14.5) % Plt Count (130-400) K/uL MPV (7.4-10.4) fL Immature Gran % (Auto) % Neut % (Auto) % Lymph % (Auto) % Crockett % (Auto) % Eos % (Auto) % Baso % (Auto) % Neut # (Auto) (1.4-6.5) K/uL Lymph # (Auto) (1.2-3.4) K/uL [place] # (Auto) (0.11-0.59) K/uL Eos # (Auto) (0-0.5) K/uL Baso # (Auto) (0-0.2) K/uL Immature Gran # (Auto) (0.00-0.02) K/uL ESR (0-20) mm/hr PT (9.0-12.0) Seconds INR (0.9-1.1) APTT (21.0-31.0) Seconds PTT Ratio VBG pH (7.36-7.41) VBG pCO2 (38-50) mmHg VBG pO2 mmHg VBG HCO3 mmol/L VBG O2 Saturation % VBG Base Excess mEq/L Barometric Pressure mm/Hg Sodium 131 L (136-145) mmol/L Potassium 4.2 (3.5-5.1) mmol/L Chloride 98 (98-107) mmol/L Carbon Dioxide 24 (21-32) mmol/L Anion Gap 9 (3-11) BUN 39 H (6-23) mg/dl Creatinine 2.10 H (0.6-1.4) mg/dl Est Cr Clr Drug Dosing 44.0 ml/min Est GFR ( Amer) 36.4 ml/min Est GFR (Non-Af Amer) 31.4 ml/min BUN/Creatinine Ratio 18.6 (10-20) Glucose 316 H* (70-99(Fasting)) mg/dl Calcium 8.7 (8.5-10.1) mg/dl Magnesium 1.6 L (1.7-2.4) mg/dl Total Bilirubin 1.3 H (0.2-1.0) mg/dl AST 15 (13-39) U/L ALT 19 (7-52) U/L Alkaline Phosphatase 50 (34-104) U/L Troponin I < 0.03 (0-0.04) ng/ml C-Reactive Protein 26.52 H (0-0.5) mg/dl Total Protein 6.9 (6.0-8.3) gm/dl Albumin 3.7 (3.4-5.0) gm/dl Globulin 3.2 (2.5-4.0) gm/dl Albumin/Globulin Ratio 1.2 (0.9-2) Lipase 27 (11-82) U/L Urine Color Urine Appearance (Clear) Urine pH (4.5-7.5) Ur Specific [place] (1.000-1.030) Urine Protein (Negative) Urine Glucose (UA) (Negative) Urine Ketones (Negative) Urine Blood (Negative) Urine Nitrite (Negative) Urine Bilirubin (Negative) Urine Urobilinogen (Negative) Ur Leukocyte Esterase (Negative) Urine WBC (Auto) (0-5) /hpf Urine RBC (Auto) (0-4) /hpf U Hyaline Cast (Auto) (0-5) /lpf U Epithel Cells (Auto) (0-5) /lpf Urine Bacteria (Auto) (Negative) SARS-CoV-2, RNA, NAAT NEGATIVE (NEGATIVE) 11/14/21 11/14/21 Range/Units 15:16 15:16 WBC (4.8-10.8) K/uL RBC (4.7-6.1) M/uL Hgb (14.0-18.0) g/dL Hct (42-52) % MCV (80-100) fL MCH (25-34) pg MCHC (32-36) g/dL RDW Std Deviation (36.4-46.3) fL RDW Coeff of Ministerio (11.5-14.5) % Plt Count (130-400) K/uL MPV (7.4-10.4) fL Immature Gran % (Auto) % Neut % (Auto) % Lymph % (Auto) % [place]ck[place] % (Auto) % Eos % (Auto) % Baso % (Auto) % Neut # (Auto) (1.4-6.5) K/uL Lymph # (Auto) (1.2-3.4) K/uL [place] # (Auto) (0.11-0.59) K/uL Eos # (Auto) (0-0.5) K/uL Baso # (Auto) (0-0.2) K/uL Immature Gran # (Auto) (0.00-0.02) K/uL ESR 37 H (0-20) mm/hr PT (9.0-12.0) Seconds INR (0.9-1.1) APTT (21.0-31.0) Seconds PTT Ratio VBG pH 7.38 (7.36-7.41) VBG pCO2 42 (38-50) mmHg VBG pO2 23 mmHg VBG HCO3 24 mmol/L VBG O2 Saturation < 60.0 % VBG Base Excess -0.8 mEq/L Barometric Pressure 729.2 mm/Hg Sodium (136-145) mmol/L Potassium (3.5-5.1) mmol/L Chloride (98-107) mmol/L Carbon Dioxide (21-32) mmol/L Anion Gap (3-11) BUN (6-23) mg/dl Creatinine (0.6-1.4) mg/dl Est Cr Clr Drug Dosing ml/min Est GFR ( Amer) ml/min Est GFR (Non-Af Amer) ml/min BUN/Creatinine Ratio (10-20) Glucose (70-99(Fasting)) mg/dl Calcium (8.5-10.1) mg/dl Magnesium (1.7-2.4) mg/dl Total Bilirubin (0.2-1.0) mg/dl AST (13-39) U/L ALT (7-52) U/L Alkaline Phosphatase (34-104) U/L Troponin I (0-0.04) ng/ml C-Reactive Protein (0-0.5) mg/dl Total Protein (6.0-8.3) gm/dl Albumin (3.4-5.0) gm/dl Globulin (2.5-4.0) gm/dl Albumin/Globulin Ratio (0.9-2) Lipase (11-82) U/L Urine Color Urine Appearance (Clear) Urine pH (4.5-7.5) Ur Specific [place] (1.000-1.030) Urine Protein (Negative) Urine Glucose (UA) (Negative) Urine Ketones (Negative) Urine Blood (Negative) Urine Nitrite (Negative) Urine Bilirubin (Negative) Urine Urobilinogen (Negative) Ur Leukocyte Esterase (Negative) Urine WBC (Auto) (0-5) /hpf Urine RBC (Auto) (0-4) /hpf U Hyaline Cast (Auto) (0-5) /lpf U Epithel Cells (Auto) (0-5) /lpf Urine Bacteria (Auto) (Negative) SARS-CoV-2, RNA, NAAT (NEGATIVE) Administered Medications Discontinued Medications Sodium Chloride (Nss 1000ml) 1,000 mls @ 999 mls/hr IV .Q1H1M STA Stop: 11/14/21 14:27 Last Infusion: 11/14/21 15:16 Dose: 0 mls/hr Documented by: [id number] Admin: 11/14/21 14:21 Dose: 999 mls/hr Documented by: [id number] Sodium Chloride (Nss 1000ml) 1,000 mls @ 999 mls/hr IV .Q1H1M ONE Stop: 11/14/21 15:15 Last Admin: 11/14/21 15:15 Dose: 999 mls/hr Documented by: [id number] Ceftriaxone Sodium (Rocephin) 1,000 mg in 50 mls @ 100 mls/hr IV NOW STA Stop: 11/14/21 15:45 Last Infusion: 11/14/21 16:16 Dose: 0 mls/hr Documented by: [id number] Admin: 11/14/21 15:29 Dose: 100 mls/hr Documented by: [id number] Ondansetron HCl (Ondansetron Inj 2 Mg/Ml 2 Ml Vial) 4 mg IV NOW STA Stop: 11/14/21 13:28 Last Admin: 11/14/21 14:21 Dose: 4 mg Documented by: [id number] Imaging Data Radiologist's Impression: Abdomen/Pelvis CT 11/14/21 13:[address] WITHOUT CONTRAST CT DOSE: 1371.55 mGy.cm HISTORY: Acute left-sided flank pain left flank pain TECHNIQUE: Multiaxial CT images of the abdomen and pelvis were performed without contrast. A dose lowering technique was utilized adhering to the principles of ALARA. COMPARISON STUDY: Chest radiograph of same day, CT abdomen and pelvis 06/18/2017 FINDINGS: Mild bibasilar atelectasis. Punctate calcified granulomata of the left lung base. There is no pneumatosis or pneumoperitoneum. Coronary artery calcifications. The unenhanced spleen, pancreas and adrenal glands are unremarkable. Cholecystectomy. Hepatic steatosis. Probable cyst of the hepatic dome measures 1.3 cm. Mild nonspecific bilateral perinephric stranding. The previously described nonobstructing right nephrolithiasis are no longer present. There is mild to moderate left-sided hydroureteronephrosis. No ureteral calculi are present. There is a punctate nonobstructing calculus of the superior pole left kidney on image 158 with a 4 mm nonobstructing calculus of the inferior pole on image 224. Air is noted within the left renal collecting system, ureter and urinary bladder. There is moderate urinary bladder wall thickening with partial distention. There is a linear 4 mm calcification noted within the dependent urinary bladder. Prostamegaly with mild surrounding inflammatory stranding.. A therosclerosis of the aorta. No adenopathy. Small duodenal diverticulum. Colonic diverticulosis. Normal appendix. No ascites or mesenteric inflammation. Unremarkable soft tissues. There is no acute fracture. Scattered probable bone islands of the pelvis and proximal femora. IMPRESSION: 1. Mild to moderate left-sided hydroureteronephrosis without obstructing ureteral calculus or lesion identified. There is however a 4 mm linear calcification within the dependent urinary bladder. Findings may be secondary to a recently passed calculus. 2. Air is present within the urinary bladder, left ureter and renal collecting system. Findings may be secondary to recent instrumentation or gas forming o rganism related to cystitis and emphysematous ureteritis/pyelitis. 3. Nonobstructing left nephrolithiasis. 4. Prostamegaly has increased in size from the 06/18/2017 comparison. Mild inflammatory stranding surrounding the prostate should be correlated with PSA level to exclude prostatitis. 5. Colonic diverticulosis. 6. Hepatic steatosis. 7. Additional findings as above. ACT 112: Negative or not required by law. The above report was generated using voice recognition software. It may contain grammatical, syntax or spelling errors. Electronically signed by: Daljit eDluca M.D. 11/14/2021 3:17 PM Chest X-Ray 11/14/21 13:32 XR chest 1V portable HISTORY: 70 years-old Male weakness acute weakness COMPARISON: Chest radiographs 10/28/2021 TECHNIQUE: Portable AP view of the chest FINDINGS: Calcific plaque of the thoracic aorta. The cardiomediastinal and hilar silhouettes are within normal limits. No pneumothorax, pleural effusion, air space consolidation or overt pulmonary edema. Linear subsegmental bibasilar atelectasis. Degenerative changes of the shoulders and spine. IMPRESSION: No acute process. ACT 112: Negative or not required by law. The above report was generated using voice recognition software. It may contain grammatical, syntax or spelling errors. Electronically signed by: Daljit Deluca M.D. 11/14/2021 2:04 PM Discharge Plan Visit Data Chief Complaint: Urinary Symptoms Stated Complaint: URINATING ISSUES/NAUSEA ED Provider: Dragan Corea Discharge Problem: Acute pyelonephritis, Hydronephrosis, Atrial fibrillation with rapid ve ntricular response, Acute hyperglycemia Patient Disposition: Being Evaluated by Hospitalist Forms Stand Alone Forms: [facility] [employer] Prescriptions Prescriptions: No Action sulfamethoxazole-trimethoprim [Bactrim DS] 800-160 mg tablet 1 tab PO BID Qty: 10 RF: 0 diclofenac sodium 75 mg tablet,delayed release (DR/EC) 75 mg PO BID PRN (Reason: Pain) RF: 0 ciclopirox 0.77 % gel 1 applic topical BID RF: 0 cetirizine [Zyrtec] 10 mg tablet 10 mg PO DAILY PRN (Reason: Allergy Symptoms) RF: 0 metoprolol succinate 50 mg tablet extended release 24 hr 50 mg PO QPM RF: 0 triamterene-hydrochlorothiazid 37.5-25 mg capsule 1 cap PO QPM RF: 0 tamsulosin 0.4 mg capsule 0.4 mg PO QPM RF: 0 metformin 1,000 mg tablet 500 mg PO BID RF: 0 lisinopril 2.5 mg tablet 2.5 mg PO QPM RF: 0 Xarelto 20 mg tablet 20 mg PO QPM RF: 0 phenazopyridine [Pyridium] 200 mg tablet 200 mg PO Q8H PRN (Reason: pain) Qty: 10 RF: 0 oxycodone-acetaminophen [Percocet] 7.5-325 mg tablet 1 tab PO Q8H PRN (Reason: pain) Qty: 7 RF: 0 acetaminophen [Tylenol Extra Strength] 500 mg Tablet 1,000 mg PO Q6H PRN (Reason: Pain) RF: 0 Lantus Solostar U-100 Insulin 100 unit/mL (3 mL) Insulin Pen 16 unit SUBCUT PM RF: 0 Referrals Referrals: Dragan Stevenson MD [Primary Care Provider] -
[2021-11-14 14:01] LABS: Basophils # (auto) 0.03 K/uL (0-0.2); Basophils % (auto) 0.1 %; Hemoglobin 12.8 g/dL (14.0-18.0); Immature Granulocytes # (auto) 0.08 K/uL (0.00-0.02); Immature Granulocytes % (auto) 0.4 %; Lymphocytes # (auto) 1.41 K/uL (1.2-3.4); Lymphocytes % (auto) 6.9 %; Mean Corpuscular Hgb Conc 33.7 g/dL (32-36); Mean Platelet Volume 10.2 fL (7.4-10.4); Monocytes # (auto) 2.57 K/uL (0.11-0.59); Monocytes % (auto) 12.5 %; Neutrophils # (auto) 16.49 K/uL (1.4-6.5); Neutrophils % (auto) 80.1 %; Platelet Count 210 K/uL (130-400); RDW Standard Deviation 48.3 fL (36.4-46.3); White Blood Count 20.58 K/uL (4.8-10.8)
--- NOTE | 2021-11-14 14:06 | XRay Report ---
XR chest 1V portable HISTORY: 70 years-old Male weakness acute weakness COMPARISON: Chest radiographs 10/28/2021 TECHNIQUE: Portable AP view of the chest FINDINGS: Calcific plaque of the thoracic aorta. The cardiomediastinal and hilar silhouettes are within normal limits. No pneumothorax, pleural effusion, airspace consolidation or overt pulmonary edema. Linear echevarria bsegmental bibasilar atelectasis. Degenerative changes of the shoulders and spine. IMPRESSION: No acute process. ACT 112: Negative or not required by law. The above report was generated using voice recognition software. It may contain grammatical, syntax o r spelling errors. Electronically signed by: Daljit Deluca M.D. 11/14/2021 2:04 PM
[2021-11-14 14:14] LABS: INR 1.1 (0.9-1.1); Partial Thromboplastin Time 27.6 Seconds (21.0-31.0); Prothrombin Time 11.5 Seconds (9.0-12.0)
[2021-11-14] MEDS ORDERED: SODIUM CHLORIDE 0.9% 1000ML 1,000 ML IV ONE (14:15)
[2021-11-14 14:29] LABS: Troponin I < 0.03 ng/ml (0-0.04)
[2021-11-14 14:33] LABS: Appearance Urine Turbid (Clear); Bacteria Urine Automated 2+ (Negative); Bilirubin Urine 1+ (Negative); Blood Urine 3+ (Negative); Color Urine Brown; Epithelial Cell Urine Auto 0-5 /lpf (0-5); Glucose Urine UA 2+ (Negative); Ketones Urine Negative (Negative); Leukocyte Esterase Urine 2+ (Negative); Nitrite Urine Positive (Negative); Protein Urine 2+ (Negative); RBC Urine Automated >30 /hpf (0-4); Urobilinogen Urine Negative (Negative)
[2021-11-14 14:40] LABS: Alanine Aminotransferase 19 U/L (7-52); Albumin Globulin Ratio 1.2 (0.9-2); Albumin Level 3.7 gm/dl (3.4-5.0); Alkaline Phosphatase 50 U/L (34-104); Anion Gap 9 (3-11); Aspartate Aminotransferase 15 U/L (13-39); BUN Creatinine Ratio 18.6 (10-20); Bilirubin,Total 1.3 mg/dl (0.2-1.0); Blood Urea Nitrogen 39 mg/dl (6-23); Calcium 8.7 mg/dl (8.5-10.1); Carbon Dioxide 24 mmol/L (21-32); Chloride 98 mmol/L (98-107); Est GFR (African American) 36.4 ml/min; Est GFR (Non-African American) 31.4 ml/min; Globulin 3.2 gm/dl (2.5-4.0); Glucose 316 mg/dl (70-99(Fasting)); Lipase 27 U/L (11-82); Potassium 4.2 mmol/L (3.5-5.1); Sodium 131 mmol/L (136-145); Total Protein 6.9 gm/dl (6.0-8.3)
[2021-11-14] MEDS ORDERED: cefTRIAXone SODIUM 1,000 MG/50 ML BAG IV STA (15:16)
--- NOTE | 2021-11-14 15:18 | CT Scan Report ---
ABDOMEN AND PELVIS CT WITHOUT CONTRAST CT DOSE: 1371.55 mGy.cm HISTORY: Acute left-sided flank pain left flank pain TECHNIQUE: Multiaxial CT images of the abdomen and pelvis were performed without contrast. A dose lo wering technique was utilized adhering to the principles of ALARA. COMPARISON STUDY: Chest radiograph of same day, CT abdomen and pelvis 06/18/2017 FINDINGS: Mild bibasilar atelectasis. Punctate calcified granulomata of the left lung base. There is no pneumatosis or pneumoperitoneum. Coronary artery calcifications. The unenhanced spleen, pancreas a nd adrenal glands are unremarkable. Cholecystectomy. Hepatic steatosis. Probable cyst of the hepatic dome measures 1.3 cm. Mild nonspecific bilateral perinephric stranding. The previously described nonobstructing right nephr olithiasis are no longer present. There is mild to moderate left-sided hydroureteronephrosis. No uret eral calculi are present. There is a punctate nonobstructing calculus of the superior pole left kidne y on image 158 with a 4 mm nonobstructing calculus of the inferior pole on image 224. Air is noted wi thin the left renal collecting system, ureter and urinary bladder. There is moderate urinary bladder wall thickening with partial distention. There is a linear 4 mm calcification noted within the depend ent urinary bladder. Prostamegaly with mild surrounding inflammatory stranding.. Atherosclerosis of t he aorta. No adenopathy. Small duodenal diverticulum. Colonic diverticulosis. Normal appendix. No ascites or mesenteric inflam mation. Unremarkable soft tissues. There is no acute fracture. Scattered probable bone islands of the pelvis and proximal femora. IMPRESSION: 1. Mild to moderate left-sided hydroureteronephrosis without obstructing ureteral calculus or lesion identified. There is however a 4 mm linear calcification within the dependent urinary bladder. Findin gs may be secondary to a recently passed calculus. 2. Air is present within the urinary bladder, left ureter and renal collecting system. Findings may b e secondary to recent instrumentation or gas forming organism related to cystitis and emphysematous u reteritis/pyelitis. 3. Nonobstructing left nephrolithiasis. 4. Prostamegaly has increased in size from the 06/18/2017 comparison. Mild inflammatory stranding surro unding the prostate should be correlated with PSA level to exclude prostatitis. 5. Colonic diverticulosis. 6. Hepatic steatosis. 7. Additional findings as above. ACT 112: Negative or not required by law. The above report was generated using voice recognition software. It may contain grammatical, syntax o r spelling errors. Electronically signed by: Daljit Deluca M.D. 11/14/2021 3:17 PM
[2021-11-14 15:28] LABS: Base Excess VBG -0.8 mEq/L; HCO3 VBG 24 mmol/L; PCO2 VBG 42 mmHg (38-50); PO2 VBG 23 mmHg; pH VBG 7.38 (7.36-7.41)
[2021-11-14 15:29] LABS: Oxygen Saturation VBG < 60.0 %
[2021-11-14 15:54] LABS: C Reactive Protein 26.52 mg/dl (0-0.5); Magnesium 1.6 mg/dl (1.7-2.4)
[2021-11-14] MEDS ORDERED: dilTIAZem HCl 5 MG/ML 5 ML VIAL IV STA (16:26)
[2021-11-14] MEDS: MAGNESIUM SULFATE / D5W 1 GM/100 ML BAG IV SCH ×4 (17:01→23:27)
[2021-11-14] MEDS ORDERED: LACTATED RINGER'S 1,000 ML IV ONE (17:04)
[2021-11-14] MEDS ORDERED: PIPERACILL/TAZOBAC CONSULT ACTIVE PRN ×2 (17:10→20:18)
[2021-11-14] MEDS ORDERED: PIPERACILLIN/TAZOBACTAM 4.5 GM/120 ML BAG IV ONE (17:10)
[2021-11-14] MEDS ORDERED: NovoLIN-R INSULIN PER UNIT CHARGE IV STA (17:25)
[2021-11-14] MEDS ORDERED: METOPROLOL TARTRATE 1 MG/ML VIAL IV STA ×2 (17:31→23:31)
--- NOTE | 2021-11-14 18:19 | History & Physical Report ---
Date of Service November 14, 2021 Assessment & Plan (1) Sepsis: Plan: -Likely secondary to urinary tract infection, either prostatitis or infected nephrolithiasis. -Patient recently underwent lithotripsy with stent placement, stent was removed this Tuesday. WBC count- 20.58 with left shift. CRP- 26.52 PCT- 2.13 MAP- 78 Lactate- 2.0, repeat 2 hours later is 2.28. Hemodynamic resuscitation plan- Patient has received 3 L IVF bolus. We will continue LR at 125 cc/h. Blood CX- pending Urine CX-pending ABX-received 1 g IV Rocephin in ED. We will switch to Zosyn 4.5 g (2) Atrial fibrillation with rapid ventricular response: Plan: -Patient on metoprolol 50 mg p.o. daily at home. Also on Xarelto daily however this has been stopped for the past 2 days as his stent was taken out on . -In the emergency department, rate and rhythm are regular, however patient was later found to be in A. fib with RVR, heart rate in 150s. He received 10 mg IV diltiazem and later on 5 mg IV Lopressor however this did not resolve his A. fib. No additional Lopressor was given due to patient becoming hypotensive with SBP's in 90s. Mg2+ low, so 3 g were given along with 3 L of LR boluses followed by LRs at 12 cc/hr. Patient eventually converted. Currently, heart rate is in the 80s with SBPs in the 100s. -Patient's home dose of metoprolol succinate 50 mg given -5 mg IV Lopressor ordered PRN for HR greater than 120, dosage not to exceed 3 doses. Hold fror HR < 60 or SBP < 100 -Continue regularly scheduled meds throughout hospitalization. (3) Acute kidney injury: Plan: -Likely due to volume depletion as patient has had decreased p.o. intake due to feeling unwell. Patient received 3 L IV boluses in ED, currently LR running at 125 cc/hr. -BUN 39, Cr 2.10. Cr on 10/28 was 1.62. -Follow BMP. -Avoid nephrotoxic agents and renally dose all medications. -We will hold patient's lisinopril until EMRE is resolved. (4) Acute hyperglycemia: Plan: -Sugar 316 in ED. -6 units regular IV insulin. -Monitor sugars. (5) Hypertension: Plan: -Initially hypotensive, in the setting of A. fib, normotensive now after IVF. -Hold lisinopril until EMRE resolves. (6) Diabetes: Plan: -DM2, patient takes Metformin and Lantus 16 units. -We will hold Metformin during hospitalization. -Continue Lantus with sliding scale insulin. -CC diet (7) On anticoagulant therapy: Plan: -Xarelto for chronic anticoagulation due to A. fib. This has been held for the past 2 days due to ureteral stent removal. -Start on IV heparin drip in the setting of hematuria. (8) DVT prophylaxis: Plan: -SCDs ordered. -Heparin drip History of Present Illness Chief Complaint: Aflutter, generalized illness. Primary Care Provider: Dragan Stevenson MD This is a 70-year-old male with past medical history of A. fib with RVR on chronic anticoagulation, diabetes, hypertension, and nephrolithiasis s/p lithotripsy and stent placement who presents today with generalized fatigue and dysuria. Patient had ureteral stent removed Tuesday, states he had felt fine up until yesterday, 11/13, when he developed dysuria, increased urinary frequency, body chills and generalized lethargy. Reports decreased p.o. intake due to not feeling well, sugars have been running high despite this. Denies chest pain, palpitations, shortness of breath, cough, sputum production, abdominal pain, nausea, vomiting, diarrhea, constipation. He has been off his Xarelto for the past 2 to 3 days due to stent removal. Patient is not sure when he is supposed to restart this. Patient was noted to have enlarged prostate as on recent imaging. He spoke to urology on the phone who prescribed Bactrim, he has received 1 dose of this. In the emergency department, rate and rhythm are regular, however patient was later found to be in A. fib with RVR, heart rate in 150s. He received 10 mg IV diltiazem and later on 5 mg IV Lopressor however this did not resolve his A. fib. No additional Lopressor was given due to patient becoming hypotensive with SBP's in 90s. Mg2+ low, so 3 g were given along with 3 L of LR boluses followed by LRs at 12 cc/hr. Patient eventually converted. Currently, heart rate is in the 80s with SBPs in the 100s. Allergies Allergy/AdvReac Type Severity Reaction Status Date / Time Iodinated Contrast Media Allergy Severe NAUSEA & Verified 11/14/21 14:54 VOMIT pollen extracts Allergy Intermediate congestion Verified 11/14/21 14:54 adhesive Allergy Unknown RASH/BLISTE Verified 11/14/21 14:54 RS grass pollen Allergy Unknown Verified 11/14/21 14:54 tree and shrub pollen Allergy Unknown Verified 11/14/21 14:54 latex Allergy Rash Verified 11/14/21 14:54 ciprofloxacin AdvReac Intermediate DISORIENTAT Verified 11/14/21 14:54 ION metronidazole AdvReac Intermediate DISORIENTAT Verified 11/14/21 14:54 ION Home Medications Medication Instructions Recorded Confirmed Type diclofenac sodium 75 mg 75 mg PO BID PRN 03/23/21 11/14/21 History tablet,delayed release ciclopirox 0.77 % topical gel 1 applic TOPICAL BID 08/10/21 11/14/21 History cetirizine 10 mg tablet (Zyrtec) 10 mg PO DAILY PRN 10/30/21 11/14/21 History lisinopril 2.5 mg tablet 2.5 mg PO QPM 10/30/21 11/14/21 History metformin 1,000 mg tablet 500 mg PO BID 10/30/21 11/14/21 History metoprolol succinate 50 mg 50 mg PO QPM 10/30/21 11/14/21 History tablet,extended release 24 hr rivaroxaban 20 mg tablet (Xarelto) 20 mg PO QPM 10/30/21 11/14/21 History tamsulosin 0.4 mg capsule 0.4 mg PO QPM 10/30/21 11/14/21 History triamterene 37.5 1 cap PO QPM 10/30/21 11/14/21 History mg-hydrochlorothiazide 25 mg capsule oxycodone-acetaminophen 7.5 mg-325 1 tab PO Q8H PRN #7 tab 11/05/21 11/14/21 Rx mg tablet (Percocet) phenazopyridine 200 mg tablet 200 mg PO Q8H PRN #10 tab 11/05/21 11/14/21 Rx (Pyridium) acetaminophen 500 mg tablet 1,000 mg PO Q6H PRN 11/14/21 11/14/21 History (Tylenol Extra Strength) insulin glargine 100 unit/mL (3 16 unit SUBCUT PM 11/14/21 11/14/21 History mL) subcutaneous pen (Lantus Solostar U-100 Insulin) sulfamethoxazole 800 1 tab PO BID #10 tab 11/14/21 11/14/21 Rx mg-trimethoprim 160 mg tablet (Bactrim DS) Past Med/Surg History Medical History BPH (benign prostatic hyperplasia) Degenerative arthritis of knee, bilateral Diabetes Hypertension Kidney stones Mnire's disease Obesity On anticoagulant therapy Paroxysmal atrial fibrillation Postoperative urgent ava in Jul 2015- asymptomatic episodes noted on loop recorder. Follows with Dr. Larkin Surgical History History of cholecystectomy History of cystoscopy with insertion of ureteral stent; history of lithotripsy History of prostate biopsy History of removal of ureteral stent History of tonsillectomy History of wisdom tooth extraction Status post placement of implantable loop recorder Implanted 2014 and explanted Oct 2018 Family History Father Cancer Other No family history of adverse response to anesthesia Social History Smoking Status: Never smoker Second Hand Exposure: No; Hx Alcohol Use: Yes Alcohol type: other Hx Substance Use: No Preferred Language: German Communication Ability: Effective Video Software Engineer Required: No Beliefs That Will Affect Care: None Current Living Situation: Spouse Feels Safe at Home: Yes Safety Concerns: Feels Safe At This Time Assistive Devices: Glasses Review of Systems Review of Systems: Review of systems: Constitutional: Reports chills, generalized lethargy .no objective fever, sweats. Eyes: No diplopia, no worsening or blurred vision ENT: normal hearing, no trouble swallowing Respiratory: No cough, sputum, dyspnea at rest or on exertion Cardiovascular: No chest pain, tightness or palpitations Abdomen: No pain, nausea, vomiting, diarrhea or constipation Musculoskeletal: No joint pain, calf pain, swelling : Reports dysuria, hematuria, and increased frequency. Neurologic: No weakness, numbness/tingling, or balance problems Psychiatric: No anxiety or depression Skin: No rash or itch Physical Exam Physical Exam: General: awake, alert, no apparent distress Head: Normocephalic, atraumatic ENT: PERRL, EOMI, no pharyngeal exudate, mucous membranes moist Chest: Clear to auscultation, on room air, no adventitious breath sounds Cardiac: Tachycardic rhythm. Heart rate 150 on monitor. no murmur, no JVD, normal peripheral pulses, good capillary refill Abdominal: NABS x 4 quadrants, soft, nontender to palpation, no rebound, guar ding or tenderness Extremities: Normal inspection, no peripheral edema or erythema, calfs nontender to palpation Psych: Normal mood and affect Neuro: AAO x 3, strength intact bilaterally and rated 5/5, no motor deficits, speech is clear, no peripheral sensory deficits Skin: no rash or erythema Results & Data Results & Data ([facility]) Vital Signs (Past 12 Hours) Vital Signs Temp Pulse Resp BP Pulse Ox 11/14/21 17:00 156 H 30 H 119/73 11/14/21 16:58 153 H 22 113/80 11/14/21 16:30 148 H 24 120/69 94 11/14/21 16:20 149 H 26 H 95 11/14/21 16:13 144 H 11/14/21 16:00 147 H 27 H 141/92 H 91 11/14/21 15:50 148 H 27 H 94 11/14/21 15:40 147 H 23 94 11/14/21 15:30 149 H 23 110/84 94 11/14/21 15:20 150 H 23 95 11/14/21 15:11 148 H 27 H 108/82 95 11/14/21 15:10 149 H 24 11/14/21 14:30 87 22 145/81 H 94 11/14/21 14:20 89 22 95 11/14/21 14:10 89 19 94 11/14/21 14:00 155 H 24 123/68 95 11/14/21 13:58 95 11/14/21 13:50 92 H 23 94 11/14/21 13:40 89 19 94 11/14/21 13:30 91 H 24 105/53 L 97 11/14/21 13:20 91 H 23 95 11/14/21 13:10 100 H 14 95 11/14/21 13:07 99 H 24 96 11/14/21 12:58 14 96 11/14/21 12:50 36.9 C 56 L 20 104/61 96 Laboratory Results Abnormal lab results 11/14/21 11/14/21 11/14/21 Range/Units 13:05 13:55 13:55 WBC 20.58 H (4.8-10.8) K/uL RBC 4.00 L (4.7-6.1) M/uL Hgb 12.8 L (14.0-18.0) g/dL Hct 38.0 L (42-52) % RDW Std Deviation 48.3 H (36.4-46.3) fL Neut # (Auto) 16.49 H (1.4-6.5) K/uL [place] # (Auto) 2.57 H (0.11-0.59) K/uL Immature Gran # (Auto) 0.08 H (0.00-0.02) K/uL ESR (0-20) mm/hr Sodium 131 L (136-145) mmol/L BUN 39 H (6-23) mg/dl Creatinine 2.10 H (0.6-1.4) mg/dl Glucose 316 H* (70-99(Fasting)) mg/dl Magnesium (1.7-2.4) mg/dl Total Bilirubin 1.3 H (0.2-1.0) mg/dl C-Reactive Protein (0-0.5) mg/dl Urine Appearance Turbid A (Clear) Urine Protein 2+ H (Negative) Urine Glucose (UA) 2+ H (Negative) Urine Blood 3+ H (Negative) Urine Nitrite Positive A (Negative) Urine Bilirubin 1+ H (Negative) Ur Leukocyte Esterase 2+ H (Negative) Urine WBC (Auto) 10-30 H (0-5) /hpf Urine RBC (Auto) >30 H (0-4) /hpf Urine Bacteria (Auto) 2+ H (Negative) 11/14/21 11/14/21 Range/Units 15:16 15:16 WBC (4.8-10.8) K/uL RBC (4.7-6.1) M/uL Hgb (14.0-18.0) g/dL Hct (42-52) % RDW Std Deviation (36.4-46.3) fL Neut # (Auto) (1.4-6.5) K/uL [place] # (Auto) (0.11-0.59) K/uL Immature Gran # (Auto) (0.00-0.02) K/uL ESR 37 H (0-20) mm/hr Sodium (136-145) mmol/L BUN (6-23) mg/dl Creatinine (0.6-1.4) mg/dl Glucose (70-99(Fasting)) mg/dl Magnesium 1.6 L (1.7-2.4) mg/dl Total Bilirubin (0.2-1.0) mg/dl C-Reactive Protein 26.52 H (0-0.5) mg/dl Urine Appearance (Clear) Urine Protein (Negative) Urine Glucose (UA) (Negative) Urine Blood (Negative) Urine Nitrite (Negative) Urine Bilirubin (Negative) Ur Leukocyte Esterase (Negative) Urine WBC (Auto) (0-5) /hpf Urine RBC (Auto) (0-4) /hpf Urine Bacteria (Auto) (Negative) Diagnostic Findings Abdomen/Pelvis CT 11/14/21 13:[address] WITHOUT CONTRAST CT DOSE: 1371.55 mGy.cm HISTORY: Acute left-sided flank pain left flank pain TECHNIQUE: Multiaxial CT images of the abdomen and pelvis were performed without contrast. A dose lowering technique was utilized adhering to the principles of ALARA. COMPARISON STUDY: Chest radiograph of same day, CT abdomen and pelvis 06/18/2017 FINDINGS: Mild bibasilar atelectasis. Punctate calcified granulomata of the left lung base. There is no pneumatosis or pneumoperitoneum. Coronary artery calcifications. The unenhanced spleen, pancreas and adrenal glands are unremarkable. Cholecystectomy. Hepatic steatosis. Probable cyst of the hepatic dome measures 1.3 cm. Mild nonspecific bilateral perinephric stranding. The previously described nonobstructing right nephrolithiasis are no longer present. There is mild to moderate left-sided hydroureteronephrosis. No ureteral calculi are present. There is a punctate nonobstructing calculus of the superior pole left kidney on image 158 with a 4 mm nonobstructing calculus of the inferior pole on image 224. Air is noted within the left renal collecting system, ureter and urinary bladder. There is moderate urinary bladder wall thickening with partial distention. There is a linear 4 mm calcification noted within the dependent urinary bladder. Prostamegaly with mild surrounding inflammatory stranding.. Atherosclerosis of the aorta. No adenopathy. Small duodenal diverticulum. Colonic diverticulosis. Normal appendix. No ascites or mesenteric inflammation. Unremarkable soft tissues. There is no acute fracture. Scattered probable bone islands of the pelvis and proximal femora. IMPRESSION: 1. Mild to moderate left-sided hydroureteronephrosis without obstructing ureteral calculus or lesion identified. There is however a 4 mm linear calcification within the dependent urinary bladder. Findings may be secondary to a recently passed calculus. 2. Air is present within the urinary bladder, left ureter and renal collecting system. Findings may be secondary to recent instrumentation or gas forming organism related to cystitis and emphysematous ureteritis/pyelitis. 3. Nonobstructing left nephrolithiasis. 4. Prostamegaly has increased in size from the 06/18/2017 comparison. Mild inflammatory stranding surrounding the prostate should be correlated with PSA level to exclude prostatitis. 5. Colonic diverticulosis. 6. Hepatic steatosis. 7. Additional findings as above. Chest X-Ray 11/14/21 13:32 XR chest 1V portable HISTORY: 70 years-old Male weakness acute weakness COMPARISON: Chest radiographs 10/28/2021 TECHNIQUE: Portable AP view of the chest FINDINGS: Calcific plaque of the thoracic aorta. The cardiomediastinal and hilar silhouettes are within normal limits. No pneumothorax, pleural effusion, airspace consolidation or overt pulmonary edema. Linear subsegmental bibasilar atelectasis. Degenerative changes of the shoulders and spine. IMPRESSION: No acute process. Medications Administered Magnesium Sulfate/Dextrose (Magnesium Sulfate / D5w) 1 gm in 100 mls @ 50 mls/hr IV Q2H JEREMIAS Stop: 12/14/21 16:44 Last Admin: 11/14/21 17:36 Dose: 100 mls/hr Documented by: [id number] Infusion: 11/14/21 17:35 Dose: 0 mls/hr Documented by: [id number] Admin: 11/14/21 17:01 Dose: 50 mls/hr Documented by: [id number] ECG Additional Comments: 13:32--> Atrial flutter with variable A-V block Septal infarct , age undetermined ST & T wave abnormality, consider lateral ischemia Abnormal ECG When compared with ECG of 12-STEWART-2022 14:12, Significant changes have occurred 14:09--> Sinus tachycardia with Premature supraventricular complexes and with frequent Premature ventricular complexes Otherwise normal ECG When compared with ECG of 14-NOV-2021 14:05, (unconfirmed) Sinus rhythm has replaced Atrial flutter Vent. rate has decreased BY 62 BPM Criteria for Septal infarct are no longer Present Nonspecific T wave abnormality no longer evident in Inferior leads T wave inversion no longer evident in Lateral leads Code Status & VTE Plan Code Status Full Code Supervising Physician Co-Signing Physician Notes I personally saw and examined the patient. I verified all jackson points and agree with Rosaura Scott PA-C with the following exceptions and/or additions: 70 year old male who presents to the ER with fever, chills, urinary frequency after recent ureteral stent removal 3 days previously. No diarrhea, cough, sinus pain, shortness of breath or chest pain. O/E Ill appearing, alert and orientated x3, no respiratory distress, Chest CTAB, Abdo SNT, BS +ve, no CVA tenderness A/P Sepsis - suspect source prostatitis after recent instrumentation. Presumed resistant to fluoroquinolones and Keflex (give for 3 days per urology). Agree with switch to IV Zosyn. If WBC and clinically not improving switch to vanc + carbapenem however no known history of MDR organisms. Consult urology given hydronephrosis but suspect this is just residual from his prior stone and no definitive obstruction identified. Holding all anti-hypertensives except for rate controlling medications given soft BP. Lactate 2.0. Adequate IV hydration given with 3L bolus. Atrial flutter with rapid ventricular rate - converted to sinus rhythm after diltiazem 10mg IV (given by ER provider) metoprolol 5mg IV (prescribed by medicine). Anticoagulation with IV heparin drip without bolus due to hematuria. Hyperglycemia - added additional correction factors overnight at midnight and 4am. Otherwise plan as above PG Care Time/CCT Total # of Minutes Spent Total Time Spent with Patient: Total time spent is greater than 50% in coordination of care (as documented) at patient's floor/unit and/or counseling patient: Coding Level of Care Code 05879 Initial Inpt Care Lvl 3 Diagnoses Atrial fibrillation with rapid ventricular response I48.91 Acute hyperglycemia R73.9 Hypertension I10 DVT prophylaxis Z29.9 Diabetes E11.9 On anticoagulant therapy Z79.01 Sepsis A41.9 Acute kidney injury N17.9
[2021-11-14] MEDS: LACTATED RINGER'S 1,000 ML IV SCH (18:44)
[2021-11-14] MEDS ORDERED: METOPROLOL SUCC 50MG EXT REL TAB PO ONE (19:19)
[2021-11-14] MEDS ORDERED: GLUCOSE 10 TABS/TUBE PO PRN (20:47)
[2021-11-14] MEDS ORDERED: ACETAMINOPHEN HOME PACK 500 MG TABLET PO PRN (20:47)
[2021-11-14] MEDS ORDERED: ONDANSETRON INJ 2 MG/ML 2 ML VIAL IV PRN (20:47)
[2021-11-14] MEDS ORDERED: CARBOHYDRATES FOR HYPOGLYCEMIA PO PRN (20:47)
[2021-11-14] MEDS ORDERED: oxyCODONE/APAP 7.5/325MG TAB PO PRN (20:47)
[2021-11-14] MEDS ORDERED: GLUCAGON FOR INJ 1 MG VIAL SQ PRN (20:47)
[2021-11-14] MEDS ORDERED: DEXTROSE 50% 50 ML SYRINGE IV PRN (20:47)
[2021-11-14] MEDS ORDERED: CETIRIZINE HCL 10 MG TABLET PO PRN (20:47)
[2021-11-14] MEDS ORDERED: GLUCOSE 40% GEL 15 GM TUBE PO PRN (20:47)
[2021-11-14] MEDS ORDERED: POLYETHYLENE (MIRALAX) 17 GM PACK PO PRN (20:47)
[2021-11-14] MEDS ORDERED: DICLOFENAC SODIUM 75 MG TABCR PO PRN (20:47)
[2021-11-14] MEDS ORDERED: HEPARIN SOD 5,000 UNIT/0.5 ML VIAL SQ SCH (21:00)
[2021-11-14] MEDS: METOPROLOL TARTRATE 1 MG/ML VIAL IV PRN (21:30)
--- NOTE | 2021-11-14 21:31 | Urology Consultation ---
Date of Consultation November 14, 2021 Assessment & Plan (1) Urinary tract infection: Patient has been admitted to the hospital service. We recommend proceeding as follows: Patient has been started on broad-spectrum antibiotics in form of Zosyn. Recommend continuing this medication until culture results are available at which time antibiotics can be tailored based on these results. He has had blood and urine culture sent Patient is being resuscitated with intravenous fluids Due to the patient's reported urinary symptoms recommend checking bladder scans if patient is having significant urinary retention he may require Cruz catheter. Although the patient does have hydronephrosis he does not appear to have any obstructing kidney stones or other obstructing lesions and this may merely be residual hydronephrosis from previous kidney stones that were treated recently Patient is noted to have episodes of hypotension and tachycardia but he is in atrial fibrillation with rapid ventricular response. This may be response from underlying sepsis and urinary tract infection and will hopefully improve with treatment of his underlying urinary tract and infection. We will continue to follow along with the patient is hospitalized Remainder of plan as directed by the hospital service History of Present Illness Reason for Consultation: Urinary tract infection status post stent removal Attending Physician: Nitin Salgado MD History of Present Illness Is a 70-year-old male who underwent a cystoscopy with basket extraction of bladder stones as well as a left ureteroscopy with ureteral dilatation and a left ureteral stent placement on 11/05/2021. Patient notes he was doing well following his procedure. Patient notes that he was seen in the urology clinic on 11/11/[address] Felipe removed his left ureteral stent. It is noted that following stent removal the patient called the on-call service later that day as the patient was having urinary difficulty having increasing urinary frequency and urgency with smaller urine output noted each time. At that time Dr. Felipe was concerned that the patient may have been in urinary retention and suggested the patient go to the emergency department however the patient declined. There is also concern the patient may have had a urinary tract infection for which antibiotics would be initiated. Patient presented to the emergency department today secondary to generalized fatigue along with continued dysuria. I did question patient on his dysuria and in addition to this he notes that he is unsure if he is able to empty his bladder completely. He also notes that he has been having a bloody urine. He denies any fevers but does note some shakes and chills at times. He denies any nausea or vomiting. He also denies any abdominal pain or suprapubic pain. He denies any back or flank pain. Upon presentation to the emergency department the patient was noted to be in atrial fibrillation with rapid ventricular response. Today in the emergency department patient had labs and imaging which I independently reviewed. He did have a chest x-ray that showed no evidence of pneumonia. CT scan of the abdomen and pelvis showed mild to moderate left-sided hydroureteronephrosis. No obstructing ureteral stones were noted. Patient was noted to have prostamegaly on this study. There was some inflammatory stranding surrounding the prostate concerning for prostatitis. CBC revealed white blood cell count was 20.5. His hemoglobin and hematocrit were 12.8 and 38.0. Platelet count was noted to be 210,000. Coagulation studies noted be normal. Chemistry profile showed sodium was 131. Potassium was normal at 4.2. His BUN and creatinine were 39 and 2.1. This level of creatinine did demonstrate an increased level from his baseline which appeared to be around 1.6. Patient was noted to have an elevated lactic acid level of 2.8. A urinalysis was performed that showed turbid urine with 3+ blood. His urine was also positive for nitrites as well as 2+ positive for leukocyte Estrace. There were 10-30 white blood cells per high-power field and 2+ bacteria in his urine. A Covid test was performed and was noted be negative. At the time of my interview the patient was resting comfortably in bed and he was in no distress. Allergies Allergy/AdvReac Type Severity Reaction Status Date / Time Iodinated Contrast Media Allergy Severe NAUSEA & Verified 11/14/21 14:54 VOMIT pollen extracts Allergy Intermediate congestion Verified 11/14/21 14:54 adhesive Allergy Unknown RASH/BLISTE Verified 11/14/21 14:54 RS grass pollen Allergy Unknown Verified 11/14/21 14:54 tree and shrub pollen Allergy Unknown Verified 11/14/21 14:54 latex Allergy Rash Verified 11/14/21 14:54 ciprofloxacin AdvReac Intermediate DISORIENTAT Verified 11/14/21 14:54 ION metronidazole AdvReac Intermediate DISORIENTAT Verified 11/14/21 14:54 ION Home Medications Medication Instructions Recorded Confirmed Type diclofenac sodium 75 mg 75 mg PO BID PRN 03/23/21 11/14/21 History tablet,delayed release ciclopirox 0.77 % topical gel 1 applic TOPICAL BID 08/10/21 11/14/21 History cetirizine 10 mg tablet (Zyrtec) 10 mg PO DAILY PRN 10/30/21 11/14/21 History lisinopril 2.5 mg tablet 2.5 mg PO QPM 10/30/21 11/14/21 History metformin 1,000 mg tablet 500 mg PO BID 10/30/21 11/14/21 History metoprolol succinate 50 mg 50 mg PO QPM 10/30/21 11/14/21 History tablet,extended release 24 hr rivaroxaban 20 mg tablet (Xarelto) 20 mg PO QPM 10/30/21 11/14/21 History tamsulosin 0.4 mg capsule 0.4 mg PO QPM 10/30/21 11/14/21 History triamterene 37.5 1 cap PO QPM 10/30/21 11/14/21 History mg-hydrochlorothiazide 25 mg capsule oxycodone-acetaminophen 7.5 mg-325 1 tab PO Q8H PRN #7 tab 11/05/21 11/14/21 Rx mg tablet (Percocet) phenazopyridine 200 mg tablet 200 mg PO Q8H PRN #10 tab 11/05/21 11/14/21 Rx (Pyridium) acetaminophen 500 mg tablet 1,000 mg PO Q6H PRN 11/14/21 11/14/21 History (Tylenol Extra Strength) insulin glargine 100 unit/mL (3 16 unit SUBCUT PM 11/14/21 11/14/21 History mL) subcutaneous pen (Lantus Solostar U-100 Insulin) sulfamethoxazole 800 1 tab PO BID #10 tab 11/14/21 11/14/21 Rx mg-trimethoprim 160 mg tablet (Bactrim DS) Patient History Medical History BPH (benign prostatic hyperplasia) Degenerative arthritis of knee, bilateral Diabetes Hypertension Kidney stones Mnire's disease Obesity On anticoagulant therapy Paroxysmal atrial fibrillation Postoperative urgent ava in Jul 2015- asymptomatic episodes noted on loop recorder. Follows with Dr. Larkin Surgical History History of cholecystectomy History of cystoscopy with insertion of ureteral stent; history of lithotripsy History of prostate biopsy History of removal of ureteral stent History of tonsillectomy History of wisdom tooth extraction Status post placement of implantable loop recorder Implanted 2014 and explanted Oct 2018 Family History Father Cancer Other No family history of adverse response to anesthesia Social History Smoking Status: Never smoker Second Hand Exposure: No; Hx Alcohol Use: Yes Alcohol type: other Hx Substance Use: No Preferred Language: Kyrgyz Communication Ability: Effective [employer] Developer Required: No Beliefs That Will Affect Care: None Current Living Situation: Spouse Feels Safe at Home: Yes Safety Concerns: Feels Safe At This Time Assistive Devices: Glasses Review of Systems Constitutional: + chills and + fatigue; no fever Eyes: no diplopia Ear, Nose, Mouth, Throat: no ear pain Respiratory: no cough and no dyspnea Cardiovascular: no chest pain Gastrointestinal: no abdominal pain, no nausea and no vomiting Genitourinary: + as per Subjective / HPI, + dysuria, + urinary frequency and + hematuria Musculoskeletal: no back pain Integumentary: no rash Neurologic: no localized weakness Physical Exam Constitutional: well developed and well nourished; no acute distress Eyes: no conjunctival abnormality ENMT: Ears: no hearing impairment Neck: trachea midline Respiratory: normal respiratory effort; no respiratory distress and no labored breathing Cardiovascular: Rate/Rhythm: + irregularly irregular Gastrointestinal (Abdomen): Soft, nontender, nondistended Musculoskeletal: No calf tenderness Skin: no rashes Neurologic: moves all extremities Psychiatric: A+Ox3, euthymic affect Results & Data ([facility]) Vital Signs (Past 12 Hours) Vital Signs Temp Pulse Resp BP Pulse Ox 11/14/21 20:47 150 H 18 99/73 L 11/14/21 18:34 155 H 11/14/21 17:00 156 H 30 H 119/73 11/14/21 16:58 153 H 22 113/80 11/14/21 16:30 148 H 24 120/69 94 11/14/21 16:20 149 H 26 H 95 11/14/21 16:13 144 H 11/14/21 16:00 147 H 27 H 141/92 H 91 11/14/21 15:50 148 H 27 H 94 11/14/21 15:40 147 H 23 94 11/14/21 15:30 149 H 23 110/84 94 11/14/21 15:20 150 H 23 95 11/14/21 15:11 148 H 27 H 108/82 95 11/14/21 15:10 149 H 24 11/14/21 14:30 87 22 145/81 H 94 11/14/21 14:20 89 22 95 11/14/21 14:10 89 19 94 11/14/21 14:00 155 H 24 123/68 95 11/14/21 13:58 95 11/14/21 13:50 92 H 23 94 11/14/21 13:40 89 19 94 11/14/21 13:30 91 H 24 105/53 L 97 11/14/21 13:20 91 H 23 95 11/14/21 13:10 100 H 14 95 11/14/21 13:07 99 H 24 96 11/14/21 12:58 14 96 11/14/21 12:50 36.9 C 56 L 20 104/61 96 PG Care Time/CCT Total # of Minutes Spent Total Time Spent with Patient: Total time spent is greater than 50% in coordination of care (as documented) at patient's floor/unit and/or counseling patient: Coding Level of Care Code 19467 Inpt Consult Level 5 Diagnoses Urinary tract infection N39.0
[2021-11-14] MEDS: INSULIN ASPART PER UNIT SC SCH ×2 (21:47→23:26)
[2021-11-14] MEDS: INSULIN GLARGINE SOLOSTAR 100 UNITS/ML 3 ML PEN SQ SCH (21:48)
[2021-11-14] MEDS: TAMSULOSIN HCL 0.4 MG CAP PO SCH (22:51)
[2021-11-14] MEDS: PIPERACILLIN/TAZOBACTAM 4.5 GM in DEXTROSE 5% 100 ML IV SCH (23:27)
[2021-11-15] MEDS ORDERED: SODIUM CHLORIDE 0.9% 1000ML 500 ML IV ONE (00:21)
[2021-11-15] MEDS ORDERED: METOPROLOL TARTRATE 1 MG/ML VIAL IV STA (00:24)
[2021-11-15] MEDS: INSULIN ASPART PER UNIT SC SCH ×5 (00:32→20:39)
[2021-11-15] MEDS: MAGNESIUM SULFATE / D5W 1 GM/100 ML BAG IV SCH (01:53)
--- NOTE | 2021-11-15 02:05 | Communication Note ---
Date of Service: November 15, 2021 Repeatedly checked on patient throughout the night. Discussed with hospitalist team prior to their departure and reviewed their notes. Unfortunately, he has remained in atrial fibrillation with RVR throughout the night with softer pressures, despite repeated doses of metoprolol and additional fluid bolus. He has been asymptomatic throughout this time. Given his irresponsiveness to repeated doses of metoprolol, additional fluid bolus, and in the context of his softer pressures, opt to initiate renally-dosed digoxin, which was discussed with pharmacy and attending physician. Proceed with 500mcg x 1 now, then 125 mcg in 4 hours, then 125mcg again in 8 hours, followed by reduced maintenance dose of 62.5mg. Continue heparin. Resident Activity Tracking Resident Involvement: Resident Care Provided Care Provided: Adult Hospital Medicine
[2021-11-15] MEDS: LACTATED RINGER'S 1,000 ML IV SCH ×3 (02:26→19:29)
[2021-11-15] MEDS ORDERED: DIGOXIN 500 MCG in SYRINGE 8 ML IV ONE ×2 (02:30→06:30)
[2021-11-15] MEDS ORDERED: SODIUM CHLORIDE 0.9% 500 ML IV ONE (03:05)
[2021-11-15 05:42] LABS: Hemoglobin 10.3 g/dL (14.0-18.0); Mean Corpuscular Hemoglobin 31.3 pg (25-34); Mean Corpuscular Hgb Conc 33.2 g/dL (32-36); Mean Corpuscular Volume 94.2 fL (80-100); Mean Platelet Volume 10.4 fL (7.4-10.4); Platelet Count 170 K/uL (130-400); RDW Coefficient of Variation 14.2 % (11.5-14.5); RDW Standard Deviation 49.3 fL (36.4-46.3); Red Blood Count 3.29 M/uL (4.7-6.1)
[2021-11-15 05:52] LABS: BUN Creatinine Ratio 14.8 (10-20); Calcium 7.4 mg/dl (8.5-10.1); Creatinine Clr Calc Pharmacy 50.4 ml/min; Est GFR (Non-African American) 37.1 ml/min; Magnesium 2.2 mg/dl (1.7-2.4)
[2021-11-15 05:59] LABS: INR 1.3 (0.9-1.1); Partial Thromboplastin Ratio 1.1; Partial Thromboplastin Time 28.7 Seconds (21.0-31.0); Prothrombin Time 12.5 Seconds (9.0-12.0)
[2021-11-15 06:10] LABS: Basophils # (auto) 0.01 K/uL (0-0.2); Basophils % (auto) 0.1 %; Immature Granulocytes # (auto) 0.06 K/uL (0.00-0.02); Immature Granulocytes % (auto) 0.4 %; Lymphocytes # (auto) 1.82 K/uL (1.2-3.4); Lymphocytes % (auto) 10.6 %; Monocytes # (auto) 1.71 K/uL (0.11-0.59); Neutrophils % (auto) 78.9 %; Toxic Vacuolation Occasional
[2021-11-15] MEDS ORDERED: DIGOXIN 125 MCG in SYRINGE 9.5 ML IV SCH (07:00)
[2021-11-15] MEDS ORDERED: LACTATED RINGER'S 1,000 ML IV ONE (08:00)
--- NOTE | 2021-11-15 08:18 | Hospitalist Progress Note ---
Date of Service November 15, 2021 Assessment & Plan (1) Sepsis: Plan: Mario Esqueda is a 70M who presented 11/14 for voiding difficulty s/p recent laser lithotripsy & L ureteral stent placement 11/05/21 & stent removal 11/11 found to have urosepsis. Urosepsis 2/2 infected nephrolithiasis vs prostatitis vs UTI Incited by recent urological intervention (laser lithotripsy & L ureteral stent placement 11/05/21 & stent removal 11/11) Leukocytosis 20k w/ left shift, UA w/ blood/nit/LE/WBCs/bacteria CT abd/pel w/ mild-mod L hydroureteronephrosis w/o obstructing stone or mass, persistent nonobstructive L sided nephrolithiasis, bladder stone, prostatomegaly Lactate 2>2.8 w/ Afib/flutter w/ RVR & hypotension S/p 5L IVF bolus + gtt 11/14- - Follow up urine & blood cultures (urine prelim GNB) - Continue zosyn pending speciation of urinary specimen. If not improving, consider switch to a carbapenem or adding vanc given sepsis & recent urologic procedure. S/p 1 dose Ctx in ED 11/14 - Continue IV fluid resuscitation (1L LRB then 125cc/hr) - Repeat lactate given last one uptrending - PSA given some e/o concomitant prostatitis on imaging - Urology consult appreciated: Bladder scans BID (2) Hematuria: Plan: Dark red hematuria 2/2 urinary infection vs trauma from recent procedures as above - Hold Xarelto. Starting heparin gtt given Afib. If worsening hematuria may need to stop - T&S - Monitor Hgb BID (3) Acute blood loss anemia: Plan: 2/2 hematuria + dilutional in s/o large volume IV fluids Baseline Hgb 14s. 12.8 on admission - now 10s this am - Risk/benefit, will start low dose heparin gtt given ongoing afib/flutter w/ frequent conversions in & out of NSR - T&S, Hgb q12h - If worsening hematuria or anemia, may need to hold heparin gtt (4) Atrial fibrillation with rapid ventricular response: Plan: History of paroxysmal Afib/SVT on home xarelto, metoprolol succinate 50mg daily. Xarelto held recently for urologic stent removal. Developed Afib RVR w/ hypotension 2/2 sepsis Refractory to IV diltiazem (10mg), IV metoprolol (5mg), fluid boluses. Self con verted to NSR Back in asymptomatic Afib RVR overnight 11/15 requiring repeated IV metop tart, additional IVF boluses. Self converted to NSR again 11/15 early AM recurrent afib w/ rvr & low/normal BP - digoxin 500mcg loading initiated Aflutter RVR w/ low normal BP this AM (asymptomatic). No e/o fluid overload on exam despite 5L IVF input - Heparin gtt w/ PTTs for anticoagulation until plan determined re. any urologic procedures (hold home Xarelto) - Continue home metoprolol succinate 50mg daily - Ongoing fluid resuscitation. Repeat 1L LRB then continue at 125/hr - Maintain normal K/Mg/Phos - Continue dig loading (5) On anticoagulant therapy: Plan: Home Xarelto 20mg daily due to pAfib Current hematuria in s/o infection - Hold Xarelto. Heparin gtt (6) Acute kidney injury: Plan: EMRE on CKD(3?) 2/2 hypoperfusion in s/o sepsis & afib rvr/hypotension. Possible contribution of postrenal EMRE as well given recent urologic procedures & obstructive symptoms bCr ~1.3-1.6 Peak Cr 2.1 on admission - improving w/ IV fluids - Continue IVF resuscitation as above - Monitor bladder scans to assess for obstruction, may require clemente - Renal dose adjusments for medications (7) Diabetes: Plan: T2DM on home metformin 500 BID and Lantus 16 units. A1c pending Presented w/ hyperglycemia in 300s in s/o sepsis - improving s/p insulin administration - Hold metformin - Lantus 16U qhs + lispro SSI q6h - Monitor BG q6h (8) Acute hyperglycemia: Plan: See above (9) Hypertension: Plan: Home lisinopril 2.5 mg daily, triamterene/HCTZ Current hypotension/low normal BP. Current EMRE as well - Hold home meds until EMRE resolves/BP normalizes Plan: Diet: Carb controlled DVT ppx: heparin gtt as above Dispo: came from home. not yet medically ready Admission and Anticipated Discharge Date Admission Date: November 14, 2021 Rhonda Esqueda is a 70M who presented 11/14 for voiding difficulty s/p recent laser lithotripsy & L ureteral stent placement 11/05/21 & stent removal 11/11 found to have urosepsis. His PMH is notable for nephrolithiasis/bladder stones, BPH, HTN, T2DM, paro xysmal AFib, Meniere's disease. this morning in aflutter w/ RVR 90-140s w/ low normal BP in 90-110 systolic no LH CP SOB urinating w/o difficulty, dark red hematuria (persistent since stent removal per pt) no abdominal pain Review of Systems Review of Systems: No chest pain, SOB, lightheadedness No abdominal pain nausea vomiting diarrhea No headache or confusion Physical Exam Physical Exam: General: Well appearing, sitting in bed, no acute distress CV: tachycardic rate, irregular rhythm. No murmurs. Resp: Breathing comfortably on room air. Lungs clear to auscultation bilaterally. No wheezes, crackles, or rhonchi Abd: Soft, nontender, nondistended Ext: Warm, well perfused. No edema : No clemente Chest wall: L lateral back protrusion (lipoma) Neuro: awake alert & oriented Results & Data Results & Data ([facility]) Vital Signs (Past 12 Hours) Vital Signs Temp Pulse Pulse Resp BP BP Pulse Ox 11/15/21 06:03 143 H 18 95/68 L 96 11/15/21 05:01 86 17 90/52 L 11/15/21 04:42 80 18 108/61 98 11/15/21 03:19 86 18 95/54 L 93 11/15/21 02:48 93 H 93 H 18 79/50 L 92 11/14/21 23:56 11/14/21 23:51 98/64 L 95 11/14/21 23:40 99.3 F 22 92 11/14/21 23:37 148 H 110/80 11/14/21 21:30 150 H 91/56 L 11/14/21 20:47 150 H 18 99/73 L Pulse Ox 11/15/21 06:03 11/15/21 05:01 11/15/21 04:42 11/15/21 03:19 11/15/21 02:48 11/14/21 23:56 95 11/14/21 23:51 11/14/21 23:40 11/14/21 23:37 11/14/21 21:30 11/14/21 20:47 PG Care Time/CCT Total # of Minutes Spent Total Time Spent with Patient: Total time spent is greater than 50% in coordination of care (as documented) at patient's floor/unit and/or counseling patient: Coding Level of Care Code 75522 Subseq Hosp Care Lvl 3 Diagnoses Sepsis A41.9 Atrial fibrillation with rapid ventricular response I48.91 Acute kidney injury N17.9 Acute hyperglycemia R73.9 Hypertension I10 Diabetes E11.9 On anticoagulant therapy Z79.01 Hematuria R31.9 Acute blood loss anemia D62
--- NOTE | 2021-11-15 08:56 | Urology Progress Note ---
Date of Service November 15, 2021 Assessment & Plan (1) Urinary tract infection: Plan: UTI after stent removal on Tuesday He has had some hydronephrosis on the left but I believe this matches expectations given his recent instrumentation and stent placement I do not believe he warrants emergent intervention He is suffering from A. fib with RVR (rate was down in the 80s/90s on eval) but otherwise relatively hemodynamically stable and afebrile His white blood cell count is improving and his creatinine is gradually improving as well Continue antibiotic therapy and management of his A. fib/RVR No surgical intervention from a standpoint planned unless he decompensates Admission and Anticipated Discharge Date Admission Date: November 14, 2021 Subjective Slight improvement overnight Still with rapid rate and A. fib Afebrile BP stable Urinary symptoms slightly better White blood cell count is decreased Creatinine improved from 2.1-1.8 Blood glucose slightly improved Physical Exam Constitutional: well developed and well nourished Respiratory: no respiratory distress Cardiovascular: Extremities: no pedal edema Gastrointestinal (Abdomen): Inspection/Auscultation: abdomen normal to inspection Results & Data ([facility]) Vital Signs (Past 12 Hours) Vital Signs Temp Pulse Pulse Resp BP BP Pulse Ox 11/15/21 06:03 143 H 18 95/68 L 96 11/15/21 05:01 86 17 90/52 L 11/15/21 04:42 80 18 108/61 98 11/15/21 03:19 86 18 95/54 L 93 11/15/21 02:48 93 H 93 H 18 79/50 L 92 11/14/21 23:56 11/14/21 23:51 98/64 L 95 11/14/21 23:40 37.4 C 22 92 11/14/21 23:37 148 H 110/80 11/14/21 21:30 150 H 91/56 L Pulse Ox 11/15/21 06:03 11/15/21 05:01 11/15/21 04:42 11/15/21 03:19 11/15/21 02:48 11/14/21 23:56 95 11/14/21 23:51 11/14/21 23:40 11/14/21 23:37 11/14/21 21:30 PG Care Time/CCT Total # of Minutes Spent Total Time Spent with Patient: Total time spent is greater than 50% in coordination of care (as documented) at patient's floor/unit and/or counseling patient: Coding Level of Care Code 17901 Subseq Hosp Care Lvl 2 Diagnoses Urinary tract infection N39.0
[2021-11-15] MEDS ORDERED: HEPARIN 25000 UNIT/500 ML D5W IV ONE (09:32)
[2021-11-15] MEDS: HEPARIN SODIUM/DEXTROSE 25,000 UNITS/500 ML BAG IV SCH (09:39)
[2021-11-15] MEDS: PIPERACILLIN/TAZOBACTAM 4.5 GM in DEXTROSE 5% 100 ML IV SCH (09:49)
[2021-11-15 09:57] LABS: Hematocrit (blood only) 32.5 % (42-52); Hemoglobin 10.8 g/dL (14.0-18.0); Mean Corpuscular Hemoglobin 31.3 pg (25-34); Mean Corpuscular Hgb Conc 33.2 g/dL (32-36); Mean Corpuscular Volume 94.2 fL (80-100); Mean Platelet Volume 10.2 fL (7.4-10.4); Platelet Count 173 K/uL (130-400); RDW Coefficient of Variation 14.4 % (11.5-14.5); RDW Standard Deviation 49.6 fL (36.4-46.3); Red Blood Count 3.45 M/uL (4.7-6.1); White Blood Count 15.63 K/uL (4.8-10.8)
[2021-11-15 10:13] LABS: Partial Thromboplastin Time 25.5 Seconds (21.0-31.0)
[2021-11-15 10:16] LABS: Albumin Level 2.9 gm/dl (3.4-5.0); BUN Creatinine Ratio 13.5 (10-20); Calcium 7.8 mg/dl (8.5-10.1); Creatinine Clr Calc Pharmacy 48.1 ml/min; Est GFR (African American) 40.6 ml/min; Phosphorus 1.9 mg/dl (2.5-4.9); Potassium 3.9 mmol/L (3.5-5.1)
[2021-11-15 10:32] LABS: Prostate Specific Antigen 39.022 ng/ml (0-4)
[2021-11-15 10:36] LABS: Thyroid Stimulating Hormone 1.063 uIu/ml (0.300-4.500)
[2021-11-15] MEDS: DIGOXIN 125 MCG in SYRINGE 9.5 ML IV SCH ×2 (11:30→15:28)
--- NOTE | 2021-11-15 11:46 | Electrocardiogram Report ---
Test Reason : Blood Pressure : / mmHG Vent. Rate : 165 BPM Atrial Rate : 312 BPM P-R Int : 000 ms QRS Dur : 102 ms QT Int : 298 ms P-R-T Axes : 000 -23 184 degrees QTc Int : 493 ms Probable Atrial flutter with variable A-V block Septal infarct , age undetermined Abnormal ECG When compared with ECG of 28-OCT-2021 14:12, Significant changes have occurred Confirmed by Dragan Larkin ([id number]) on 11/15/2021 11:46:26 AM Referred By: Confirmed By:Dragan Larkin
--- NOTE | 2021-11-15 11:47 | Electrocardiogram Report ---
Test Reason : Blood Pressure : / mmHG Vent. Rate : 103 BPM Atrial Rate : 103 BPM P-R Int : 154 ms QRS Dur : 092 ms QT Int : 362 ms P-R-T Axes : 020 -09 041 degrees QTc Int : 474 ms Sinus tachycardia with Premature supraventricular complexes and with frequent Premature ventricular c omplexes Otherwise normal ECG When compared with ECG of 14-NOV-2021 14:05, (unconfirmed) Significant changes have occurred Confirmed by Dragan Larkin ([id number]) on 11/15/2021 11:46:46 AM Referred By: Confirmed By:Dragan Larkin
--- NOTE | 2021-11-15 11:54 | Electrocardiogram Report ---
Test Reason : Blood Pressure : / mmHG Vent. Rate : 095 BPM Atrial Rate : 095 BPM P-R Int : 164 ms QRS Dur : 096 ms QT Int : 352 ms P-R-T Axes : 026 006 036 degrees QTc Int : 442 ms Sinus rhythm with Premature atrial complexes Septal infarct , age undetermined Abnormal ECG When compared with ECG of 14-NOV-2021 14:08, (unconfirmed) Premature ventricular complexes are no longer Present Septal infarct is now Present Confirmed by Dragan Larkin ([id number]) on 11/15/2021 11:54:38 AM Referred By: REFERRED SELF Confirmed By:Dragan Larkin
[2021-11-15] MEDS ORDERED: POTASSIUM PHOS 3 MMOL/1 ML INFUSION IV ONE (13:14)
[2021-11-15] MEDS ORDERED: POTASSIUM PHOSPHATE 15 MMOL in SODIUM CHLORIDE 0.9% 250 ML IV ONE (13:45)
[2021-11-15] MEDS ORDERED: AMIODARONE IV BOLUS & DRIP IV STA (15:37)
[2021-11-15] MEDS ORDERED: AMIODARONE / D5W 150 MG/100 ML BAG IV STA (15:37)
[2021-11-15] MEDS ORDERED: STAT IV Infusion **Titration per Protocol STA (15:37)
[2021-11-15] MEDS: METOPROLOL TARTRATE 1 MG/ML VIAL IV PRN (15:37)
[2021-11-15] MEDS ORDERED: 0.2 MICRON FILTER SET 1 EA IV ONE (15:37)
[2021-11-15] MEDS ORDERED: AMIODARONE / D5W 360 MG/200 ML BAG IV ONE (15:50)
[2021-11-15 15:56] LABS: Partial Thromboplastin Ratio 1.1; Partial Thromboplastin Time 27.9 Seconds (21.0-31.0)
[2021-11-15] MEDS ORDERED: HEPARIN SOD (PORCINE) 1000 UNIT/ML ONE (16:07)
[2021-11-15] MEDS ORDERED: HEPARIN SOD (PORCINE) 1000 UNIT/ML IV ONE ×2 (16:11→23:55)
[2021-11-15] MEDS: PIPERACILLIN/TAZOBACTAM 3.375 GM in DEXTROSE 5% 100 ML IV SCH (19:28)
[2021-11-15] MEDS: INSULIN GLARGINE SOLOSTAR 100 UNITS/ML 3 ML PEN SQ SCH (20:40)
[2021-11-15] MEDS ORDERED: METOPROLOL SUCC 50MG EXT REL TAB PO SCH (21:00)
[2021-11-15] MEDS ORDERED: AMIODARONE / D5W 360 MG/200 ML BAG IV SCH (21:50)
[2021-11-15 23:16] LABS: Partial Thromboplastin Ratio 1.3
[2021-11-16] MEDS: ACETAMINOPHEN 325 MG TAB PO PRN ×2 (00:08→20:21)
[2021-11-16] MEDS: PIPERACILLIN/TAZOBACTAM 3.375 GM in DEXTROSE 5% 100 ML IV SCH ×2 (02:49→13:08)
[2021-11-16] MEDS: LACTATED RINGER'S 1,000 ML IV SCH ×3 (03:29→19:31)
[2021-11-16] MEDS: HEPARIN SODIUM/DEXTROSE 25,000 UNITS/500 ML BAG IV SCH ×2 (03:56→19:31)
[2021-11-16 07:21] LABS: Basophils # (auto) 0.01 K/uL (0-0.2); Basophils % (auto) 0.1 %; Eosinophils # (auto) 0.05 K/uL (0-0.5); Eosinophils % (auto) 0.5 %; Hematocrit (blood only) 37.7 % (42-52); Hemoglobin 12.4 g/dL (14.0-18.0); Immature Granulocytes # (auto) 0.04 K/uL (0.00-0.02); Immature Granulocytes % (auto) 0.4 %; Lymphocytes # (auto) 1.01 K/uL (1.2-3.4); Lymphocytes % (auto) 9.6 %; Mean Corpuscular Hemoglobin 31.3 pg (25-34); Mean Corpuscular Hgb Conc 32.9 g/dL (32-36); Mean Corpuscular Volume 95.2 fL (80-100); Mean Platelet Volume 10.6 fL (7.4-10.4); Monocytes # (auto) 0.82 K/uL (0.11-0.59); Monocytes % (auto) 7.8 %; Neutrophils # (auto) 8.59 K/uL (1.4-6.5); Neutrophils % (auto) 81.6 %; Platelet Count 199 K/uL (130-400); RDW Coefficient of Variation 14.3 % (11.5-14.5); Red Blood Count 3.96 M/uL (4.7-6.1); White Blood Count 10.52 K/uL (4.8-10.8)
[2021-11-16 07:43] LABS: Partial Thromboplastin Ratio 1.3; Partial Thromboplastin Time 34.3 Seconds (21.0-31.0)
[2021-11-16 07:43] LABS: Estimated Average Glucose 226 mg/dl; Hemoglobin A1C 9.5 % (4.5-5.6)
[2021-11-16] MEDS: INSULIN ASPART PER UNIT SC SCH ×4 (07:45→20:43)
[2021-11-16 07:46] LABS: BUN Creatinine Ratio 12.1 (10-20); Calcium 8.1 mg/dl (8.5-10.1); Creatinine Clr Calc Pharmacy 54.3 ml/min; Est GFR (African American) 45.7 ml/min; Est GFR (Non-African American) 39.4 ml/min; Potassium 3.9 mmol/L (3.5-5.1)
--- NOTE | 2021-11-16 09:10 | Electrocardiogram Report ---
Test Reason : Blood Pressure : / mmHG Vent. Rate : 099 BPM Atrial Rate : 300 BPM P-R Int : 000 ms QRS Dur : 092 ms QT Int : 352 ms P-R-T Axes : 060 -13 055 degrees QTc Int : 451 ms Atrial flutter with variable A-V block Nonspecific ST and T wave abnormality Abnormal ECG When compared with ECG of 15-NOV-2021 02:46, Significant changes have occurred Confirmed by Dragan Larkin ([id number]) on 11/16/2021 9:10:23 AM Referred By: REFERRED SELF Confirmed By:Dragan Larkin
[2021-11-16] MEDS ORDERED: TAMSULOSIN HCL 0.4 MG CAP PO STA (10:24)
--- NOTE | 2021-11-16 10:27 | Hospitalist Progress Note ---
Date of Service November 16, 2021 Assessment & Plan (1) Sepsis: Plan: Mario Esqueda is a 70M who presented 11/14 for voiding difficulty s/p recent laser lithotripsy & L ureteral stent placement 11/05/21 & stent removal 11/11 found to have sepsis. Sepsis secondary to prostatitis Incited by recent urological intervention (laser lithotripsy & L ureteral stent placement 11/05/21 & stent removal 11/11) CT abd/pel w/ mild-mod L hydroureteronephrosis w/o obstructing stone or mass, persistent nonobstructive L sided nephrolithiasis, bladder stone, prostatomegaly WBC improving on Zosyn - Blood cultures negative at 48 hours. - Urine culture positive for pansensitive Klebsiella oxytoca - since source is prostatitis will switch to Bactrim given high levels in prostatic tissue - will need treatment for 4-6 weeks, 4 weeks if inflammatory marker normal and prostate non-tender (2) Acute bacterial prostatitis: Plan: Restart tamsulosin 0.4mg PO daily. Additional dose now. Otherwise as above. (3) Atrial fibrillation with rapid ventricular response: Plan: History of paroxysmal Afib/SVT on home xarelto, metoprolol succinate 50mg daily. Xarelto held recently for urologic stent removal. Developed Afib RVR w/ hypotension 2/2 sepsis Continues in atrial flutter but with variable block. Improving over last 48 hours with digoxin initially given however this has now been discontinued. Increase metoprolol succinate to 50mg PO BID however likely to need probably double this as digoxin comes out of his system therefore will uptitrate as BP al lows Will continue IV heparin until urine clear just in case he develops any clots, since this is clearing up can likely switch back to his usual Xarelto tomorrow. (4) Acute kidney injury: Plan: EMRE on CKD(3?) 2/2 hypoperfusion in s/o sepsis & afib rvr/hypotension. Possible contribution of postrenal EMRE as well given recent urologic procedures & obstructive symptoms bCr ~1.3-1.6 Peak Cr 2.1 on admission - improving w/ IV fluids - Will continue LR while starting Bactrim to better assess the effect of Bactrim rather than stopping fluids on his Cr. (5) Diabetes: Plan: T2DM on home metformin 500 BID and Lantus 16 units. A1c 9.5 - will need ems educator Presented w/ hyperglycemia in 300s in s/o sepsis - improving s/p insulin administration - Hold metformin - Lantus 16U qhs -> increase to 20 units - Novolog - tighten carb ratio to 1unit:10g (6) Acute hyperglycemia: Plan: See above (7) Hypertension: Plan: Home lisinopril 2.5 mg daily, triamterene/HCTZ - Hold home anti-hypertensives except metoprolol as above for rate control due to EMRE and current low normal BP (8) On anticoagulant therapy: Plan: Home Xarelto 20mg daily due to pAfib Current hematuria in s/o infection - Hold Xarelto. Heparin gtt Plan: Diet: Carb controlled DVT ppx: heparin gtt as above Dispo: stable for transfer to med/tele, continued telemetry due to a. flutter with occasional rapid rate Admission and Anticipated Discharge Date Admission Date: November 14, 2021 Subjective Patient doing much better since admission. Having increased urinary urgency after tamsulosin held last night due to low normal BP. No dysuria. PVR 350ml this morning. Appetite increasing but still not eating much. Still very fatigued and not back to baseline. Isolated temp 37.9 degrees celsius last night however patient reports not feeling this. Review of Systems Review of Systems: All systems reviewed & are unremarkable except as noted in HPI & below Physical Exam Constitutional: WD/WN, vitals as above no acute distress Eyes: + anicteric sclerae; normal pupil size Respiratory: normal respiratory effort, lungs clear to auscultation Cardiovascular: Rate/Rhythm: + tachycardic and + irregularly irregular Heart Sounds: no murmur Extremities: normal capillary refill; no pedal edema Gastrointestinal (Abdomen): normal bowel sounds, soft, nontender, no hepatosplenomegaly Musculoskeletal: no cyanosis or clubbing, extremities motor strength 5/5 Skin: no rashes, warm and dry Neurologic: moves all extremities and awake; not confused Psychiatric: A+Ox3, euthymic affect Genitourinary: no CVA tenderness Results & Data Results & Data ([facility]) Vital Signs (Past 12 Hours) Vital Signs Temp Pulse Pulse Resp BP BP Pulse Ox 11/16/21 09:29 86 11/16/21 07:56 36.8 C 90 20 144/79 H 92 11/16/21 03:14 36.8 C 81 20 114/70 94 11/16/21 00:18 119 H 11/15/21 23:43 37.9 C H 112 H 16 111/70 92 PG Care Time/CCT Total # of Minutes Spent Total Time Spent with Patient: Total time spent is greater than 50% in coordination of care (as documented) at patient's floor/unit and/or counseling patient: Coding Level of Care Code 53925 Subseq Hosp Care Lvl 3 Diagnoses Sepsis A41.9 Atrial fibrillation with rapid ventricular response I48.91 Acute kidney injury N17.9 Acute hyperglycemia R73.9 Hypertension I10 Diabetes E11.9 On anticoagulant therapy Z79.01 Acute bacterial prostatitis N41.0
[2021-11-16] MEDS ORDERED: METOPROLOL SUCC 50MG EXT REL TAB PO SCH (10:30)
[2021-11-16] MEDS: SULFAMETHOXAZOLE/TRIMETHOPRIM DS 800/160MG TAB PO SCH ×2 (11:37→22:29)
--- NOTE | 2021-11-16 11:56 | Urology Progress Note ---
Date of Service November 16, 2021 Assessment & Plan (1) Urinary tract infection: Plan: 70yo M who is s/p recent urological procedure admitted with UTI - Pt is s/p cystoscopy, laser lithotripsy, left ureteral stent placement 11/05/21 and then stent removal 11/[address] Felipe. - Afebrile, non-toxic appearing. - Labs reviewed - Wbc downtrending, Creatinine improved to 1.74 today, previously 1.9 - Continue to trend. - Urine culture with Klebsiella; Blood cultures no growth x 24 hours - On PO Bactrim - No acute intervention warranted at this time. - Pt reported urinary frequency and hesitancy this morning - Recommend double voiding to facilitate bladder emptying. Continue Flomax. - Monitor urine output, bladder scan PRN. Straight cath as needed for PVR >350- 400ml. - Continue supportive care, antibiotic therapy, and management per primary team. - Plan for outpatient follow-up with urology as scheduled. - will follow peripherally, please contact us with any further questions or concerns. Admission and Anticipated Discharge Date Admission Date: November 14, 2021 Subjective Pt examined at bedside this AM. Awake, sitting in bedside chair on arrival. No acute distress. Tmax 37.9 last night, afebrile at present. Denies any pain or discomfort at present. Tolerating PO diet, no nausea or vomiting. Reports some urinary frequency, hesitancy this morning. Mild dysuria and hematuria, improved since admission. Reports urine as light pink. Urine output this morning - 400ml. Per nursing, PVR 350ml this morning. Offered no additional complaints at time of exam. Review of Systems Constitutional: as per Subjective / HPI Gastrointestinal: as per Subjective / HPI Genitourinary: + as per Subjective / HPI Physical Exam Constitutional: well developed and well nourished Respiratory: no respiratory distress Cardiovascular: Extremities: no pedal edema Gastrointestinal (Abdomen): Inspection/Auscultation: abdomen normal to inspection Musculoskeletal: Head/Neck/Chest: normocephalic Skin: No visible rashes or lesions to exposed skin areas Neurologic: moves all extremities and awake Psychiatric: Orientation: alert, oriented x 3 and cooperative Results & Data ([facility]) Vital Signs (Past 12 Hours) Vital Signs Temp Pulse Pulse Resp BP BP Pulse Ox 11/16/21 09:29 86 11/16/21 07:56 36.8 C 90 20 144/79 H 92 11/16/21 03:14 36.8 C 81 20 114/70 94 11/16/21 00:18 119 H PG Care Time/CCT Total # of Minutes Spent Total Time Spent with Patient: Total time spent is greater than 50% in coordination of care (as documented) at patient's floor/unit and/or counseling patient: Coding Level of Care Code 87596 Subseq Hosp Care Lvl 2 Diagnoses Urinary tract infection N39.0
[2021-11-16] MEDS ORDERED: HEPARIN IV BOLUS 4,000 UNITS in SYRINGE 0 ML IV ONE (13:15)
[2021-11-16 18:48] LABS: Partial Thromboplastin Ratio 1.7; Partial Thromboplastin Time 43.9 Seconds (21.0-31.0)
[2021-11-16] MEDS: TAMSULOSIN HCL 0.4 MG CAP PO SCH (20:45)
[2021-11-16] MEDS: METOPROLOL SUCC 50MG EXT REL TAB PO SCH (20:49)
[2021-11-16] MEDS ORDERED: INSULIN GLARGINE SOLOSTAR 100 UNITS/ML 3 ML PEN SQ SCH (21:00)
[2021-11-17] MEDS ORDERED: Nursing to Pharmacy Communication SCH (00:15)
[2021-11-17 01:10] LABS: Partial Thromboplastin Ratio 1.6; Partial Thromboplastin Time 42.5 Seconds (21.0-31.0)
[2021-11-17] MEDS: LACTATED RINGER'S 1,000 ML IV SCH (03:24)
[2021-11-17 07:53] LABS: Basophils # (auto) 0.02 K/uL (0-0.2); Basophils % (auto) 0.3 %; Eosinophils # (auto) 0.02 K/uL (0-0.5); Eosinophils % (auto) 0.3 %; Hematocrit (blood only) 32.4 % (42-52); Hemoglobin 10.8 g/dL (14.0-18.0); Immature Granulocytes # (auto) 0.06 K/uL (0.00-0.02); Immature Granulocytes % (auto) 0.9 %; Lymphocytes # (auto) 0.92 K/uL (1.2-3.4); Lymphocytes % (auto) 13.4 %; Mean Corpuscular Hemoglobin 31.3 pg (25-34); Mean Corpuscular Hgb Conc 33.3 g/dL (32-36); Mean Corpuscular Volume 93.9 fL (80-100); Mean Platelet Volume 10.3 fL (7.4-10.4); Monocytes # (auto) 1.01 K/uL (0.11-0.59); Monocytes % (auto) 14.7 %; Neutrophils # (auto) 4.84 K/uL (1.4-6.5); Neutrophils % (auto) 70.4 %; Platelet Count 186 K/uL (130-400); RDW Coefficient of Variation 14.4 % (11.5-14.5); RDW Standard Deviation 49.7 fL (36.4-46.3); Red Blood Count 3.45 M/uL (4.7-6.1); White Blood Count 6.87 K/uL (4.8-10.8)
[2021-11-17 08:28] LABS: Partial Thromboplastin Ratio 1.7
[2021-11-17 08:48] LABS: Partial Thromboplastin Time 45.2 Seconds (21.0-31.0)
[2021-11-17] MEDS: METOPROLOL SUCC 50MG EXT REL TAB PO SCH (08:49)
[2021-11-17] MEDS: INSULIN ASPART PER UNIT SC SCH ×2 (08:55→12:08)
[2021-11-17] MEDS: HEPARIN SODIUM/DEXTROSE 25,000 UNITS/500 ML BAG IV SCH ×2 (09:07→16:29)
[2021-11-17 10:20] LABS: BUN Creatinine Ratio 9.6 (10-20); Calcium 7.7 mg/dl (8.5-10.1); Creatinine Clr Calc Pharmacy 64.4 ml/min; Est GFR (African American) 56.5 ml/min; Est GFR (Non-African American) 48.7 ml/min; Potassium 3.8 mmol/L (3.5-5.1)
--- NOTE | 2021-11-17 10:53 | Hospitalist Progress Note ---
Date of Service November 17, 2021 Assessment & Plan (1) Sepsis: Plan: Mario Esqueda is a 70M who presented 11/14 for voiding difficulty s/p recent laser lithotripsy & L ureteral stent placement 11/05/21 & stent removal 11/11 found to have sepsis. Sepsis secondary to prostatitis Incited by recent urological intervention (laser lithotripsy & L ureteral stent placement 11/05/21 & stent removal 11/11) CT abd/pel w/ mild-mod L hydroureteronephrosis w/o obstructing stone or mass, persistent nonobstructive L sided nephrolithiasis, bladder stone, prostatomegaly WBC improving on Zosyn - Blood cultures negative at 48 hours. - Urine culture positive for pansensitive Klebsiella oxytoca - since source is prostatitis will switch to Bactrim given high levels in prostatic tissue - will need treatment for 4-6 weeks, 4 weeks if inflammatory marker normal and prostate non-tender (2) Acute bacterial prostatitis: Plan: Restart tamsulosin 0.4mg PO daily. Additional dose now. Otherwise as above. (3) Atrial fibrillation with rapid ventricular response: Plan: History of paroxysmal Afib/SVT on home xarelto, metoprolol succinate 50mg daily. Xarelto held recently for urologic stent removal. Developed Afib RVR w/ hypotension 2/2 sepsis Continues in atrial flutter but with variable block. Improving over last 48 hours with digoxin initially given however this has now been discontinued. Increase metoprolol succinate to 50mg PO BID however likely to need probably double this as digoxin comes out of his system therefore will uptitrate as BP al lows Will continue IV heparin until urine clear just in case he develops any clots, since this is clearing up can likely switch back to his usual Xarelto tomorrow. (4) Acute kidney injury: Plan: EMRE on CKD(3?) 2/2 hypoperfusion in s/o sepsis & afib rvr/hypotension. Possible contribution of postrenal EMRE as well given recent urologic procedures & obstructive symptoms bCr ~1.3-1.6 Peak Cr 2.1 on admission - improving w/ IV fluids - Will continue LR while starting Bactrim to better assess the effect of Bactrim rather than stopping fluids on his Cr. (5) Diabetes: Plan: T2DM on home metformin 500 BID and Lantus 16 units. A1c 9.5 - will need religious educator Presented w/ hyperglycemia in 300s in s/o sepsis - improving s/p insulin administration - Hold metformin - Lantus 16U qhs -> increase to 20 units - Novolog - tighten carb ratio to 1unit:10g (6) Acute hyperglycemia: Plan: See above (7) Hypertension: Plan: Home lisinopril 2.5 mg daily, triamterene/HCTZ - Hold home anti-hypertensives except metoprolol as above for rate control due to EMRE and current low normal BP (8) On anticoagulant therapy: Plan: Home Xarelto 20mg daily due to pAfib Current hematuria in s/o infection - Hold Xarelto. Heparin gtt Plan: Diet: Carb controlled DVT ppx: heparin gtt as above Dispo: stable for transfer to med/[facility], continued telemetry due to a. flutter with occasional rapid rate Admission and Anticipated Discharge Date Admission Date: November 14, 2021 Results & Data Results & Data ([facility]) Vital Signs (Past 12 Hours) Vital Signs Temp Pulse Pulse Resp BP Pulse Ox 11/17/21 07:00 37.3 C 94 H 20 108/70 91 11/17/21 04:00 37.6 C H 82 18 108/70 95 11/17/21 01:19 94 H 11/16/21 23:06 37.0 C 84 18 102/69 95 PG Care Time/CCT Total # of Minutes Spent Total Time Spent with Patient: Total time spent is greater than 50% in coordination of care (as documented) at patient's floor/unit and/or counseling patient: Coding Diagnoses Sepsis A41.9 Acute bacterial prostatitis N41.0 Atrial fibrillation with rapid ventricular response I48.91 Acute kidney injury N17.9 Diabetes E11.9 Acute hyperglycemia R73.9 Hypertension I10 On anticoagulant therapy Z79.01
[2021-11-17] MEDS: SULFAMETHOXAZOLE/TRIMETHOPRIM DS 800/160MG TAB PO SCH (12:00)
--- NOTE | 2021-11-17 12:01 | Cardiology Consultation ---
Date of Consultation November 17, 2021 Assessment & Plan (1) Atrial fibrillation with rapid ventricular response: 70-year-old male with PMHx of A. fib with RVR on chronic anticoagulation, diabetes, hypertension, and nephrolithiasis s/p lithotripsy and stent placement admitted for UTI sepsis likely associated with recent stent placement/removal. Atrial fibrillation -Patient on chronic anticoagulation (Xarelto), rate control (Toprol) at home; Xarelto held for recent procedure -Found to be in a fib for 2 days; refractory to Metoprolol dose increase to 100 mg bid from home 50 mg qPM dose, and IV diltiazem, lopressor (both given in ED) -Now with evidence of flutter -Given low normal BPs, adding diltiazem would increase risk for further lowering of BP. Therefore, recommend: * IV Digoxin 0.25 mg, with additional 0.25 mg push if necessary * Discharge home on Digoxin 0.125 daily p.o. * Follow-up in clinic for further titration as needed. Patient seen and examined. Chart reviewed. Agree with assessment and plan as outlined by Dr. Moreno. Impression: Paroxysmal atrial fibrillation/flutter with difficult to control ventricular response. 1. Agree with increased dose of metoprolol succinate. 2. Add digoxin as described above. 3. Convert heparin drip back to oral Xarelto. 4. Follow-up in my office in 1-2 weeks. History of Present Illness Attending Physician: Nitin Salgado MD History of Present Illness Mr. Esqueda is a 70 year old man with a long history of atrial fibrillation, managed by Dr. Larkin, who is here for sepsis UTI following a recent lithotripsy with ureteral stent placement and removal for nephrolithiasis. He was found to be in atrial fibrillation with RVR to the 150s in the emergency room, where he received IV diltiazem and IV Lopressor, which did not resolve his fibrillation. Since then, telemetry has revealed fibrillation with flutter with rates to the 150s. Mr. Esqueda usually takes 50 mg Toprol qPM (and 20 mg Xarelto, also qPM) for chronic management of his a fib. His Toprol dose was increased to 100 mg BID yesterday, but this did not resolve his fibrillation, hence the consult for additional medication management. Mr. Esqueda is seated comfortably in his room this morning. He is aware of his atrial fibrillation and new presentation of atrial flutter but denies chest pain/angina, dyspnea on exertion, dizziness, or palpitations. Per telemetry, he was tachycardic to the 150s this morning, which resolved, but became tachycardic with a fib about an hour ago, where he has remained. He is eager to go home- otherwise he has no other complaints. Past medical and surgical history 1. Paroxysmal atrial fibrillation 2. Paroxysmal atrial flutter 3. Paroxysmal SVT 4. Diabetes mellitus 5. Nephrolithiasis 6. Meniere's disease 7. DJD 8. BPH 9. Cholecystectomy-July 2015 10. Implanted loop recorder-July 2015 through October 2018 Social history and lives with his Retired teacher No tobacco alcohol Family history No early coronary artery disease Review of systems A 10 review systems was undertaken and negative except that described above. Allergies Allergy/AdvReac Type Severity Reaction Status Date / Time Iodinated Contrast Media Allergy Severe NAUSEA & Verified 11/14/21 14:54 VOMIT pollen extracts Allergy Intermediate congestion Verified 11/14/21 14:54 adhesive Allergy Unknown RASH/BLISTE Verified 11/14/21 14:54 RS grass pollen Allergy Unknown Verified 11/14/21 14:54 tree and shrub pollen Allergy Unknown Verified 11/14/21 14:54 latex Allergy Rash Verified 11/14/21 14:54 ciprofloxacin AdvReac Intermediate DISORIENTAT Verified 11/14/21 14:54 ION metronidazole AdvReac Intermediate DISORIENTAT Verified 11/14/21 14:54 ION Home Medications Medication Instructions Recorded Confirmed Type diclofenac sodium 75 mg 75 mg PO BID PRN 03/23/21 11/14/21 History tablet,delayed release ciclopirox 0.77 % topical gel 1 applic TOPICAL BID 08/10/21 11/14/21 History cetirizine 10 mg tablet (Zyrtec) 10 mg PO DAILY PRN 10/30/21 11/14/21 History lisinopril 2.5 mg tablet 2.5 mg PO QPM 10/30/21 11/14/21 History metformin 1,000 mg tablet 500 mg PO BID 10/30/21 11/14/21 History metoprolol succinate 50 mg 50 mg PO QPM 10/30/21 11/14/21 History tablet,extended release 24 hr rivaroxaban 20 mg tablet (Xarelto) 20 mg PO QPM 10/30/21 11/14/21 History tamsulosin 0.4 mg capsule 0.4 mg PO QPM 10/30/21 11/14/21 History triamterene 37.5 1 cap PO QPM 10/30/21 11/14/21 History mg-hydrochlorothiazide 25 mg capsule oxycodone-acetaminophen 7.5 mg-325 1 tab PO Q8H PRN #7 tab 11/05/21 11/14/21 Rx mg tablet (Percocet) phenazopyridine 200 mg tablet 200 mg PO Q8H PRN #10 tab 11/05/21 11/14/21 Rx (Pyridium) acetaminophen 500 mg tablet 1,000 mg PO Q6H PRN 11/14/21 11/14/21 History (Tylenol Extra Strength) insulin glargine 100 unit/mL (3 16 unit SUBCUT PM 11/14/21 11/14/21 History mL) subcutaneous pen (Lantus Solostar U-100 Insulin) sulfamethoxazole 800 1 tab PO BID #10 tab 11/14/21 11/14/21 Rx mg-trimethoprim 160 mg tablet (Bactrim DS) Patient History Medical History BPH (benign prostatic hyperplasia) Degenerative arthritis of knee, bilateral Diabetes Hypertension Kidney stones Mnire's disease Obesity On anticoagulant therapy Paroxysmal atrial fibrillation Postoperative urgent ava in Jul 2015- asymptomatic episodes noted on loop recorder. Follows with Dr. Larkin Surgical History History of cholecystectomy History of cystoscopy with insertion of ureteral stent; history of lithotripsy History of prostate biopsy History of removal of ureteral stent History of tonsillectomy History of wisdom tooth extraction Status post placement of implantable loop recorder Implanted 2014 and explanted Oct 2018 Family History Father Cancer Other No family history of adverse response to anesthesia Social History Smoking Status: Never smoker Second Hand Exposure: No; Hx Alcohol Use: Yes Alcohol type: other Hx Substance Use: No Preferred Language: Icelandic Communication Ability: Effective Washing Machine Loader Required: No Beliefs That Will Affect Care: None Current Living Situation: Spouse Feels Safe at Home: Yes Assistive Devices: None Review of Systems Review of Systems: All systems reviewed & are unremarkable except as noted in HPI & below Physical Exam Constitutional: well developed and comfortable; no acute distress Eyes: PERRL, conjunctivae normal, anicteric sclerae Respiratory: normal respiratory effort, lungs clear to auscultation Cardiovascular: Rate/Rhythm: + tachycardic and + irregularly irregular; + abnormal rhythm Heart Sounds: normal S1 and normal S2; no murmur Vessels: brachial pulses present; no abdominal aortic bruit Gastrointestinal (Abdomen): normal bowel sounds, soft, nontender, no hepatosplenomegaly Results & Data ([facility]) Vital Signs (Past 12 Hours) Vital Signs Temp Pulse Pulse Resp BP Pulse Ox 11/17/21 07:00 37.3 C 94 H 20 108/70 91 11/17/21 04:00 37.6 C H 82 18 108/70 95 11/17/21 01:19 94 H Laboratory Results CBC notes hemoglobin 10.8, hematocrit 32.4, white count 6.87, and platelet count 186 1000. Electrolytes note a sodium of 136, potassium 3.8, chloride 105, bicarb 25, BUN 14, creatinine 1.46, and glucose of 175. Calcium level is low at 7.7. Magnesium level is normal at 2.2. TSH is normal at 1.063. Diagnostic Findings EKG notes atrial flutter with a variable ventricular response. Resident Activity Tracking Resident Involvement: Resident Care Provided Care Provided: Adult Hospital Medicine
[2021-11-17] MEDS ORDERED: DIGOXIN 250 MCG in SYRINGE 9 ML IV ONE (12:15)
[2021-11-17] MEDS ORDERED: ADVANCED PROBIOTIC 1250 MG CAPSULE PO SCH (14:30)
[2021-11-17] MEDS ORDERED: RIVAROXABAN 20 MG TAB PO ONE (15:00)
--- NOTE | 2021-11-17 16:21 | Discharge Summary ---
Date of Service November 17, 2021 Admission HPI Per Admitting Provider This is a 70-year-old male with past medical history of A. fib with RVR on chronic anticoagulation, diabetes, hypertension, and nephrolithiasis s/p lithotripsy and stent placement who presents today with generalized fatigue and dysuria. Patient had ureteral stent removed Tuesday, states he had felt fine up until yesterday, 11/13, when he developed dysuria, increased urinary frequency, body chills and generalized lethargy. Reports decreased p.o. intake due to not feeling well, sugars have been running high despite this. Denies chest pain, palpitations, shortness of breath, cough, sputum production, abdominal pain, nausea, vomiting, diarrhea, constipation. He has been off his Xarelto for the past 2 to 3 days due to stent removal. Patient is not sure when he is supposed to restart this. Patient was noted to have enlarged prostate as on recent imaging. He spoke to urology on the phone who prescribed Bactrim, he has received 1 dose of this. In the emergency department, rate and rhythm are regular, however patient was later found to be in A. fib with RVR, heart rate in 150s. He received 10 mg IV diltiazem and later on 5 mg IV Lopressor however this did not resolve his A. fib. No additional Lopressor was given due to patient becoming hypotensive with SBP's in 90s. Mg2+ low, so 3 g were given along with 3 L of LR boluses followed by LRs at 12 cc/hr. Patient eventually converted. Currently, heart rate is in the 80s with SBPs in the 100s. Principal Diagnosis Sepsis Acute bacterial prostatitis Atrial flutter with rapid ventricular rate Discharge Exam Constitutional WD/WN, vitals as above no acute distress Respiratory normal respiratory effort, lungs clear to auscultation Cardiovascular Rate/Rhythm: regular rate and + irregularly irregular Heart Sounds: no murmur Extremities: normal capillary refill; no pedal edema Gastrointestinal (Abdomen) normal bowel sounds, soft, nontender, no hepatosplenomegaly Skin no rashes, warm and dry Neurologic moves all extremities and awake; not confused Psychiatric A+Ox3, euthymic affect Genitourinary no CVA tenderness Discharge Data Allergies Allergy/AdvReac Type Severity Reaction Status Date / Time Iodinated Contrast Media Allergy Severe NAUSEA & Verified 11/14/21 14:54 VOMIT pollen extracts Allergy Intermediate congestion Verified 11/14/21 14:54 adhesive Allergy Unknown RASH/BLISTE Verified 11/14/21 14:54 RS grass pollen Allergy Unknown Verified 11/14/21 14:54 tree and shrub pollen Allergy Unknown Verified 11/14/21 14:54 latex Allergy Rash Verified 11/14/21 14:54 ciprofloxacin AdvReac Intermediate DISORIENTAT Verified 11/14/21 14:54 ION metronidazole AdvReac Intermediate DISORIENTAT Verified 11/14/21 14:54 ION Consultations 11/14/21 16:19 ED Decision to Admit Stat 11/14/21 20:47 Consult Urology Routine 11/17/21 10:27 Consult Cardiology Routine Ordered Studies 11/14/21 13:27 CT abd pelvis wo con Stat IMPRESSION: 1. Mild to moderate left-sided hydroureteronephrosis without obstructing ureteral calculus or lesion identified. There is however a 4 mm linear calcification within the dependent urinary bladder. Findings may be secondary to a recently passed calculus. 2. Air is present within the urinary bladder, left ureter and renal collecting system. Findings may be secondary to recent instrumentation or gas forming organism related to cystitis and emphysematous ureteritis/pyelitis. 3. Nonobstructing left nephrolithiasis. 4. Prostamegaly has increased in size from the 06/18/2017 comparison. Mild inflammatory stranding surrounding the prostate should be correlated with PSA level to exclude prostatitis. 5. Colonic diverticulosis. 6. Hepatic steatosis. 7. Additional findings as above. Diabetes Follow up Diabetes Follow-up Needed for HgbA1c >9% Hospital Course (1) Sepsis: (2) Acute bacterial prostatitis: (3) Atrial fibrillation with rapid ventricular response: (4) Acute kidney injury: (5) Diabetes: (6) Acute hyperglycemia: (7) Hypertension: (8) On anticoagulant therapy: Mario Esqueda is a 70 year old male admitted to [facility] from November 14 to November 17, 2021 due to generalized fatigue and dysuria following ureteral stent removal. He was diagnosed with sepsis secondary to prostatitis. This was initially treated with broad-spectrum antibiotics however urine culture grew pansensitive Klebsiella oxytoca therefore he was switched to Bactrim to finish the remainder of the antibiotic course (atleast 4 weeks, can extend to 6 weeks if CRP/ESR still elevated or prostate tender after this time). He is at increased risk of recurrent infections due to uncontrolled diabetes. HbA1c 9.5 during this admission. Recommend increasing Lantus dose to 22 units at night and following up with his PCP for ongoing management of this. During his admission he was requiring a total (basal and bolus regimen) of approximately 33 units daily without Metformin therefore may need higher amounts of insulin in the future depending on his home diet. His known paroxysmal atrial flutter was rapid during his admission due to sepsis however was still significantly increased once infection much improved after 48 hours of antibiotics. He was reviewed by cardiology and metoprolol succinate has been increased as below. He was also started on digoxin. He should follow-up with cardiology in approximately 2 weeks after discharge for ongoing management of this as digoxin levels may be too high with concurrent Bactrim use. His anti-hypertensives with lisinopril, triamterene and hydrochlorothiazide were discontinued due to low blood pressure and acute kidney injury. Blood pressure 110/72 on discharge with increased dose of metoprolol. He was advised to follow up with his PCP for ongoing hypertension management. Total Time Total Time Spent Total Time Spent (In Minutes): 35 Discharge Plan Discharge Items Patient Disposition: Home - Self-Care Reason For Visit: AFIB Discharge Diagnosis: Sepsis, prostatitis, atrial flutter with rapid ventricular rate Activity: Resume your previous activity Non-emergency contact: Primary Care Provider and Urologist Call non-emergency contact if: you have any medication questions and your symptoms worsen Follow-up/Referrals: Dragan Larkin MD [Physician] - 12/01/21 11:30 am (2 weeks with digoxin level. This appointment will be with Adalberto Nazario.) Dragan Stevenson MD [Primary Care Provider] - 11/20/21 2:10 pm Diet: Carb Consistent or DM2 Addtl Attending Provider Instructions: You were admitted to [facility] from November 14 to November 17, 2021 due to generalized fatigue and dysuria following ureteral stent removal. He was diagnosed with sepsis secondary to prostatitis. This was initially treated with broad-spectrum antibiotics however urine culture grew pansensitive Klebsiella oxytoca therefore he was switched to Bactrim to finish the remainder of the antibiotic course. You are at increased risk of recurrent infections especially from your urinary tract due to your uncontrolled diabetes. HbA1c 9.5 during this admission. Recommend increasing your Lantus dose to 22 units at night and following up with your primary care provider for ongoing management of this to reduce your ongoing risk. During a hospital admission you have required a total (basal and bolus) of approximately 33 units daily without Metformin therefore you may need higher amounts of insulin in the future depending on your home diet. Regarding your atrial flutter you were reviewed by cardiology. Metoprolol succinate has been increased as below. You also started on digoxin. Please follow-up with cardiology approximately 2 weeks after discharge for ongoing management of this as digoxin levels may be too high with concurrent Bactrim use. Please call your retail inventory control clerk sooner if you feel dizzy or lightheaded. Your blood pressure medication with lisinopril, triamterene and hydrochlorothiazide were discontinued due to low blood pressure and acute kidney injury. Please follow-up with your primary care physician to see whether these need to be restarted. Kind regards, Dr. Nitin Salgado Pending Studies at Discharge: No Stand-Alone Forms: My [facility] [employer], Smoking Cessation Medications and DC Order Prescriptions: New metoprolol succinate 100 mg tablet extended release 24 hr 100 mg PO BID Qty: 60 RF: 0 digoxin 125 mcg (0.125 mg) tablet 125 mcg PO DAILY Qty: 30 RF: 0 Continued ciclopirox 0.77 % gel 1 applic topical BID RF: 0 cetirizine [Zyrtec] 10 mg tablet 10 mg PO DAILY PRN (Reason: Allergy Symptoms) RF: 0 tamsulosin 0.4 mg capsule 0.4 mg PO QPM RF: 0 metformin 1,000 mg tablet 500 mg PO BID RF: 0 Xarelto 20 mg tablet 20 mg PO QPM RF: 0 phenazopyridine [Pyridium] 200 mg tablet 200 mg PO Q8H PRN (Reason: pain) Qty: 10 RF: 0 oxycodone-acetaminophen [Percocet] 7.5-325 mg tablet 1 tab PO Q8H PRN (Reason: pain) Qty: 7 RF: 0 acetaminophen [Tylenol Extra Strength] 500 mg Tablet 1,000 mg PO Q6H PRN (Reason: Pain) RF: 0 sulfamethoxazole-trimethoprim [Bactrim DS] 800-160 mg tablet 1 tab PO BID 28 Days Qty: 56 RF: 0 Changed Lantus Solostar U-100 Insulin 100 unit/mL (3 mL) Insulin Pen 22 unit SUBCUT PM Qty: 0 RF: 0 Discontinued diclofenac sodium 75 mg tablet,delayed release (DR/EC) 75 mg PO BID PRN (Reason: Pain) RF: 0 metoprolol succinate 50 mg tablet extended release 24 hr 50 mg PO QPM RF: 0 triamterene-hydrochlorothiazid 37.5-25 mg capsule 1 cap PO QPM RF: 0 lisinopril 2.5 mg tablet 2.5 mg PO QPM RF: 0 Discharge Orders: Discharge Order (Routine); Ordered 11/17/21 Ordered By: Nitin Stewart/Other Patient Handouts: Managing Type 2 Diabetes Admission Data Admit Date/Time: 11/14/21 17:52 Attending Provider: Nitin Salgado Admit Provider: Nitin Salgado Primary Care Provider: Dragan Stevenson Other Providers: Nitin Salgado ; Juan R Harrington ; Dragan Larkin Other Interventions: Discharge Summary Assessment (RN) Last Done: 11/17/21 16:30 Coding Level of Care Code D/C DAY MANAGEMENT >30 MINS Diagnoses Sepsis A41.9 Acute bacterial prostatitis N41.0 Atrial fibrillation with rapid ventricular response I48.91 Acute kidney injury N17.9 Diabetes E11.9 Acute hyperglycemia R73.9 Hypertension I10 On anticoagulant therapy Z79.01
[2021-11-17] MEDS ORDERED: INSULIN GLARGINE SOLOSTAR 100 UNITS/ML 3 ML PEN SQ SCH (21:00)
== END 2021-11-17 17:10 | disposition home or self-care (01) | DRG 872 ==
LOC: ED 12:41 → SUATTDRO 17:52 → EDINP 17:52 → 2S 11-15 16:53 → 2N 11-16 17:45

== ENCOUNTER 2023-01-27 05:37 | Observation (INO) ==
--- NOTE | 2023-01-20 15:41 | Anesthesiology Consultation ---
Date of Service January 20, 2023 Assessment & Plan (1) Encounter for pre-operative examination: - COVID screening: Per assessment on 01/20: No known COVID-19 positive contacts or current COVID-19 related symptoms. Travel screen negative. Patient vaccinated. At surgeon discretion if preop Covid testing being done. - Check BSG AM DOS - Cardiology visit (04/14/22): "The patient is stable from a cardiovascular standpoint. He demonstrates excellent control of his blood pressure and cholesterol values. He is tolerating rate control and long-term anticoagulation for his paroxysmal atrial fibrillation without difficulty. Highly complex medical issues were managed and discussed today." Continued on same regimen. - IDDM: Critically elevated glucose on preop labs 01/13/23 at 442. Surgeon aware. Patient/PCP have discussed abnormal labs- PCP office communication scanned into [employer] as follows: Patient (01/14/23): "Dr. Burgos, It was recommended by Dr. Felipe, my urologist, that I have bladder stones removed and my prostate reduced. I went to the hospital for some preoperatively testing on January 13. The blood sugar came back as 442. I have not had a reading that high in a long while. I ate breakfast before I went. I ate breakfast this morning and played [employer] ball for about an hour. I tested my sugar when I got home and it was 315. Dr. Felipe suggested I inform you about the 442 reading, so I am. Do you have any thoughts? PCP response (Dr. Burgos, 01/14/23): "This is quite high- I would recommend increasing you lantus by 2-3 unit increments every 2-3 days until your fasting AM sugars are under 180 or so. Let me know where this titration ends" Message received by PAT senior naval parachutist that patient has had significant improvement in glucose control since increasing insulin dosing per PCP recommendation, stating his glucoses are "hovering around 130" - Patient acceptable risk for surgery pending BSG/evaluation AM DOS. Chart Review Chart Review: Patient NOT seen in Pre Admission Testing History Surgery Operation Date: 01/27/23 09:50 Proposed Procedures p Photoselective Vaporization of the Prostate Using the Greenlight Laser (PVP - Greenlight), Cystolithalopaxy - Sourav Felipe DO s Possible Resection - Sourav Felipe DO Height/Weight Height: 6 ft 2 in Weight: 102.512 kg Allergies Allergy/AdvReac Type Severity Reaction Status Date / Time adhesive Allergy Intermediate RASH/BLISTE Verified 01/20/23 14:53 RS grass pollen Allergy Intermediate congestion Verified 01/20/23 14:53 Iodinated Contrast Media Allergy Intermediate NAUSEA & Verified 01/20/23 14:53 VOMIT pollen extracts Allergy Intermediate congestion Verified 01/20/23 14:53 tree and shrub pollen Allergy Intermediate congestion Verified 01/20/23 14:53 latex Allergy Mild Rash Verified 01/20/23 14:53 ciprofloxacin AdvReac Intermediate DISORIENTAT Verified 01/20/23 14:53 ION metronidazole AdvReac Intermediate DISORIENTAT Verified 01/20/23 14:53 ION Medications Home Medications Medication Instructions Recorded Confirmed Last Taken ciclopirox 0.77 % topical gel 1 applic topical BID 08/10/21 01/20/23 11/14/21 cetirizine 10 mg tablet (Zyrtec) 10 mg PO DAILY PRN Allergy Symptoms 10/30/21 01/20/23 11/04/21 08:00 insulin glargine 100 unit/mL (3 22 unit (0.22 mL) subcut PM #0 mL 11/17/21 01/20/23 11/13/21 mL) subcutaneous pen (Lantus Solostar U-100 Insulin) diclofenac sodium 75 mg 75 mg PO BID PRN Pain 12/01/21 01/20/23 Unknown tablet,delayed release triamterene 37.5 1 tab PO QPM 04/14/22 01/20/23 Unknown mg-hydrochlorothiazide 25 mg tablet rivaroxaban 20 mg tablet (Xarelto) 20 mg PO QPM #90 tabs 07/19/22 01/20/23 Unknown metoprolol succinate 100 mg 100 mg PO BID #180 tabs 01/19/23 01/20/23 Unknown tablet,extended release 24 hr digoxin 125 mcg (0.125 mg) tablet 125 mcg PO QAM 01/20/23 01/20/23 Unknown finasteride 5 mg tablet 5 mg PO QPM 01/20/23 01/20/23 Unknown metformin 500 mg tablet 500 mg PO BID 01/20/23 01/20/23 Unknown tamsulosin 0.4 mg capsule 0.4 mg PO QPM 01/20/23 01/20/23 Unknown Past Medical History Medical History BPH (benign prostatic hyperplasia) Degenerative arthritis of knee, bilateral Diabetes IDDM History of COVID-19 04/2022- mild symptoms > resolved Hypertension Kidney stones Mnire's disease Paroxysmal atrial fibrillation Follows with Dr. Larkin Past Family History Family History Father Cancer Other No family history of adverse response to anesthesia Past Surgical History Surgical History History of cholecystectomy History of cystoscopy with insertion of ureteral stent; history of lithotripsy History of prostate biopsy History of removal of ureteral stent History of tonsillectomy History of wisdom tooth extraction Status post placement of implantable loop recorder Implanted 2014 and explanted Oct 2018 Social History Smoking Status: Never smoker Do You Dip or Chew Tobacco: No Hx Alcohol Use: Yes Alcohol type: other alcohol intake frequency: holidays/special occasions only Hx Substance Use: No substance use type: does not use Lab Results Anesthesia Preop Results Results Anesthesia Widget: WBC 6.01 K/ul (4.8-10.8) 01/13/23 Hgb 14.9 g/dl (14.0-18.0) 01/13/23 Hct 43.0 % (42.0-52.0) 01/13/23 Plt 199 K/uL (130-400) 01/13/23 Na 136 mmol/L (136-145) 01/13/23 K 4.4 mmol/L (3.5-5.1) 01/13/23 Cl 103 mmol/L (98-107) 01/13/23 CO2 25 mmol/L (21-32) 01/13/23 BUN 22 mg/dl (6-23) 01/13/23 Creat 1.60 mg/dl (0.6-1.4) H 01/13/23 Glucose Level 442 mg/dl (70-99(Fasting)) H* 01/13/23 Testing Laboratory Results 01/12/23 UA negative blood/nitrite/leuk est Electrocardiogram Date: 01/13/23 Findings: + NSR @ (60) Chest X-Ray Date: 01/13/23 Findings: + NAD
[2023-01-27] MEDS ORDERED: ceFAZolin 2000MG 2,000 MG/15 ML SYR IV SCH (06:00)
[2023-01-27] MEDS ORDERED: LR 15ML/HR IV SCH (06:00)
[2023-01-27] MEDS ORDERED: fentaNYL citrate PF 100 MCG/2 ML VIAL IV PRN (06:48)
[2023-01-27] MEDS ORDERED: ATROPINE SULFATE 0.1 MG/ML 10ML SYR IV PRN (06:48)
[2023-01-27] MEDS ORDERED: ePHEDrine sulfate 50 MG/ML AMP IV PRN (06:48)
[2023-01-27] MEDS ORDERED: ONDANSETRON INJ 2 MG/ML 2 ML VIAL IV PRN (06:48)
[2023-01-27] MEDS ORDERED: PROPOFOL IV EMULSION 10 MG/ML 20 ML VIAL IV ONE (06:49)
[2023-01-27] MEDS ORDERED: DEXAMETHASONE SOD INJ 4 MG/ML VIAL ONE (06:49)
[2023-01-27] MEDS ORDERED: MIDAZOLAM HCL 1 MG/ML 2ML VIAL ONE (06:49)
[2023-01-27] MEDS ORDERED: fentaNYL citrate PF 100 MCG/2 ML VIAL ONE (06:49)
[2023-01-27] MEDS ORDERED: ONDANSETRON INJ 2 MG/ML 2 ML VIAL ONE (06:49)
--- NOTE | 2023-01-27 07:05 | History & Physical Bridge Note ---
Date of Service January 27, 2023 History & Physical Bridge Note I have examined the patient, reviewed the History & Physical and in the interval since the performance of the History & Physical I have noted the following changes of clinical significance: no changes noted
[2023-01-27] MEDS ORDERED: ceFAZolin 330 MG/ML 1 GM VIAL ONE ×2 (07:18)
[2023-01-27] MEDS ORDERED: LIDOCAINE 2% MPF LOCAL 5 ML VIAL ONE (07:44)
[2023-01-27] MEDS ORDERED: ePHEDrine sulfate 50 MG/ML SYR ONE (08:04)
--- NOTE | 2023-01-27 09:27 | Operative Report ---
PG Post Operative Report Pre & Post Diagnosis Operation Date: 01/27/23 07:15 Pre-Op Diagnosis: Bladder outlet obstruction, bladder stones, large kidney stones Post-Op Diagnosis: Bladder outlet obstruction, bladder stones, large kidney stones I identified the patient and participated in the time-out.: Yes Procedure Operation Date: 01/27/23 07:15 Actual Procedures p Photoselective Vaporization of the Prostate Using the Greenlight Laser, Laser Enucleation of Prostate, and Destruction and extraction of bladder stones - Sourav Felipe DO Surgeon Sourav Felipe, II, DO Metal Solderer None Estimated Blood Loss 10 Findings Consistent with Post-Op Diagnosis Large Prostate with obstruction. Enucleation of the median lobe with vaporization of the lateral lobes. Innumerable bladder stones with largest approximately 8 mm. The stones were destroyed and flushed and extracted Specimens Prostate adenoma enucleation Bladder stones Drains 22Fr three-way silicone catheter Anesthesia Type General Complications none Disposition Disposition: Recovery Room Indications Patient with obstruction due to prostate enlargement. Risks and benefits discussed at length. Description of Procedure Patient was consented and brought back to the operating room. Patient was placed under anesthesia in the supine position and moved to the dorsal lithotomy position. Patient was prepped and draped in the regular sterile fashion. A time out was completed. A 30degree Cystoscope was placed into the bladder and the entire bladder was examined. The UO's were identified as well as the bladder neck, trigone, dome, and the other important landmarks. The prostatic urethra and large lobes/adenoma was assessed and the veru and bladder neck identified and area/size was assessed. The cystoscope with laser bridge and the Greenlight laser fiber were selected. Starting at the 5 and 7 o'clock positions, a channel was created from bladder neck to the veru. A channel was further formed between the two areas. Utilizing the greenlight laser along the capsule fibers at all along the median lobe the large median lobe was then enucleated in 2 separate pieces. These were displaced into the bladder. No major bleeding or areas of concern. The resection then started at the 1 and 11 oclock positions and swept down to the channel. The lateral lobes were vaporized down to capsule fibers. The left lateral lobe was found to be significantly larger and required extensive time for full vaporization. All bleeding was controlled. The Specimen was removed and sent for analysis. The 2 enucleated pieces from the median lobe were removed as well as a few other smaller pieces during the vaporization process. The resection bed and any bleeding areas were fulgurated/cauterized and the entire area inspected. All bleeding was controlled. At this point the greenlight laser and scope were removed and a resection scope was placed. This was utilized to destroy the stones and then irrigate the stones out. Once all the stones have been broken up and flushed free the entire was inspected. No additional stones remained. Some very small tiny fragments were appreciated in the base and these were attempted to be flushed out. Majority of the stone pieces were able to be flushed out completely. The bladder was inspected a final time. The bladder was emptied and irrigated. All specimen and debris was removed. The scope was removed with the bladder partially full. A 22 [place] silicone three-way catheter was placed and balloon elevated. This was easily irrigated. Continuous irrigation was then initiated. The patient was cleaned, aroused from anesthesia, and transferred to the pacu in stable condition having tolerated the procedure well with no complications. I was present and participated in all aspects of the procedure. The patient will be monitored in the PACU until transferred. We will plan to observe the patient overnight with plans to maintain catheter with CBI for the next 24 hours with plans to likely send home with the catheter for approximately 1 week. We will plan to have follow-up in the office with pathology review and catheter removal in approximately 7 to 10 days. I attest to the content of the Intraoperative Record and any orders documented therein. Any exceptions are noted below.
--- NOTE | 2023-01-27 10:03 | Anesthesiology Progress Note ---
Date of Service January 27, 2023 Anesthesia Post Procedure Vital Signs Vital Signs: Temp Pulse Pulse Resp BP Pulse Ox O2 Del Method 01/27/23 09:50 48 L 12 115/66 97 Oxymask 01/27/23 09:40 49 L 14 116/71 98 Oxymask 01/27/23 09:30 96.8 F L 50 L 12 117/76 98 Oxymask 01/27/23 06:05 97.5 F L 49 L 20 129/78 95 Room Air O2 Flow Rate 01/27/23 09:50 4 01/27/23 09:40 6 01/27/23 09:30 8 01/27/23 06:05 Transfer of Care Handoff Completed per policy Notes Mental Status: alert / awake / arousable and participated in evaluation Patient Amnestic to Procedure: Yes Nausea / Vomiting: adequately controlled Pain: adequately controlled Airway Patency, RR, SpO2: stable & adequate BP & HR: stable & adequate Hydration State: stable & adequate Anesthetic Complications: no major complications apparent and Pt Satisfied with anesthetic care
--- NOTE | 2023-01-27 10:10 | Anesthesiology Progress Note ---
Date of Service January 27, 2023 Anesthesia Post Procedure Vital Signs Vital Signs: Temp Pulse Pulse Resp BP Pulse Ox O2 Del Method 01/27/23 10:00 97.5 F L 49 L 10 L 113/71 99 Room Air 01/27/23 09:50 48 L 12 115/66 97 Oxymask 01/27/23 09:40 49 L 14 116/71 98 Oxymask 01/27/23 09:30 96.8 F L 50 L 12 117/76 98 Oxymask 01/27/23 06:05 97.5 F L 49 L 20 129/78 95 Room Air O2 Flow Rate 01/27/23 10:00 01/27/23 09:50 4 01/27/23 09:40 6 01/27/23 09:30 8 01/27/23 06:05 Transfer of Care Handoff Completed per policy Notes Mental Status: alert / awake / arousable and participated in evaluation Patient Amnestic to Procedure: Yes Nausea / Vomiting: adequately controlled Pain: adequately controlled Airway Patency, RR, SpO2: stable & adequate BP & HR: stable & adequate Hydration State: stable & adequate Anesthetic Complications: no major complications apparent and Pt Satisfied with anesthetic care
[2023-01-27] MEDS ORDERED: PHENAZOPYRIDINE HCL 200 MG TAB PO PRN (10:31)
[2023-01-27] MEDS ORDERED: oxyCODONE/ACETAMINOPHEN 5mg/325mg TAB PO PRN (10:31)
[2023-01-27] MEDS ORDERED: MoRPHine SULFATE 2 MG/ML CARP IV PRN (10:31)
[2023-01-27] MEDS ORDERED: CETIRIZINE HCL 10 MG TABLET PO PRN (10:31)
[2023-01-27] MEDS ORDERED: BELLADONNA/OPIUM SUPP 60 MG SUPP PR PRN (10:31)
--- NOTE | 2023-01-27 10:56 | Hospitalist Consultation ---
Date of Consultation January 27, 2023 Assessment & Plan (1) Benign localized prostatic hyperplasia with lower urinary tract symptoms (LUTS): Chronic/unstable S/p photoselective vaporization of the prostate using the greenlight laser, laser enucleation of the prostate, and destruction and extraction of bladder st ones by Dr. Felipe 01/27 - Abx ppx/IVF/pain control/clemente care as outlined by primary team - Continue Tamsulosin and Finasteride (2) Paroxysmal SVT (supraventricular tachycardia): Chronic/stable - Currently examines in regular rhythm - Continue Toprol XL and Digoxin - Recommend resuming ACT (Xarelto) ideally no later than pod #1 (3) Diabetes: Chronic/unstable - Last ha1c was 9.0% in 02/2022 - Diabetic diet ordered - AC and HS accuchecks - Continue Metformin (on 500mg BID at home) - will increase dose to 1000mg BID - Continue Lantus 22u qHS and add lispro meal coverage with CF 35 and CR 12 - Check ha1c in AM (4) Hypertension: Chronic/stable - Well controlled - BP 126/75 - Continue Toprol and Triamterene/HCTZ Plan Recommendations as outlined above. Thank you for allowing us to participate in the care of your patient. Above plan of care has been d/w Dr. Martínez who will also see and evaluate this patient. Further orders will be implemented as warranted. Supervising Physician Co-Signing Physician Notes Patient seen and examined, chart reviewed, case discussed with Leesa Chen PA-C and I agree with the assessment and plan as above except as otherwise noted Labs and images reviewed Tejinder is seen for medical management of comorbidities after prostate evaporation/distraction. He is in no pain and feels well at the bedside. Does have a history of DM paroxysmal SVT, reports that these have been well controlled. At bedside assessment lungs are clear, abdomen nontender, heart rate is regular. No distress. Somewhat curious about the details of his procedure for which she will follow-up with urology, otherwise no questions or concerns. Agree with management above History of Present Illness Reason for Consultation: Medical management Requesting Physician: Dr. Felipe Attending Physician: Sourav Felipe, II, DO History of Present Illness Mario Esqueda is a 72 yo M with a pmhx of BPH with LUTS, paroxysmal afib on chronic ACT (xarelto), HTN, and DM2 who was hospitalized under Dr. Felipe' service for elective procedure for BPH and bladder stones. Patient was taken to the OR this morning where he received general anesthesia. He underwent photoselective vaporization of the prostate using the greenlight laser, laser enucleation of the prostate, and destruction and extraction of bladder stones. He tolerated the procedure well without any immediate complications. He is currently resting comfortably in bed, offers no complaints. Has mild discomfort but pain is not uncontrolled. He denies cp, dyspnea, n/v/d. He does feel that he has to have a BM. He has been holding his Xarelto since Tuesday evening (last dose) in preparation for today's procedure. Hospitalists have been asked to see in consult for routine post operative medical management. Allergies Allergy/AdvReac Type Severity Reaction Status Date / Time adhesive Allergy Intermediate RASH/BLISTE Verified 01/27/23 06:01 RS grass pollen Allergy Intermediate congestion Verified 01/27/23 06:01 Iodinated Contrast Media Allergy Intermediate NAUSEA & Verified 01/27/23 06:01 VOMIT pollen extracts Allergy Intermediate congestion Verified 01/27/23 06:01 tree and shrub pollen Allergy Intermediate congestion Verified 01/27/23 06:01 latex Allergy Mild Rash Verified 01/27/23 06:01 ciprofloxacin AdvReac Intermediate DISORIENTAT Verified 01/27/23 06:01 ION metronidazole AdvReac Intermediate DISORIENTAT Verified 01/27/23 06:01 ION Home Medications Medication Instructions Recorded Confirmed Type cetirizine 10 mg tablet (Zyrtec) 10 mg PO DAILY PRN Allergy Symptoms 10/30/21 01/27/23 History insulin glargine 100 unit/mL (3 22 unit (0.22 mL) subcut PM #0 mL 11/17/21 01/27/23 Rx mL) subcutaneous pen (Lantus Solostar U-100 Insulin) diclofenac sodium 75 mg 75 mg PO BID PRN Pain 12/01/21 01/27/23 History tablet,delayed release triamterene 37.5 1 tab PO QPM 04/14/22 01/27/23 History mg-hydrochlorothiazide 25 mg tablet rivaroxaban 20 mg tablet (Xarelto) 20 mg PO QPM #90 tabs 07/19/22 01/27/23 Rx metoprolol succinate 100 mg 100 mg PO BID #180 tabs 01/19/23 01/27/23 Rx tablet,extended release 24 hr digoxin 125 mcg (0.125 mg) tablet 125 mcg PO QAM 01/20/23 01/27/23 History finasteride 5 mg tablet 5 mg PO QPM 01/20/23 01/27/23 History metformin 500 mg tablet 500 mg PO BID 01/20/23 01/27/23 History tamsulosin 0.4 mg capsule 0.4 mg PO QPM 01/20/23 01/27/23 History Patient History Medical History BPH (benign prostatic hyperplasia) Degenerative arthritis of knee, bilateral Diabetes IDDM History of COVID-19 04/2022- mild symptoms > resolved Hypertension Kidney stones Mnire's disease Paroxysmal atrial fibrillation Follows with Dr. Larkin Surgical History History of cholecystectomy History of cystoscopy with insertion of ureteral stent; history of lithotripsy History of prostate biopsy History of removal of ureteral stent History of tonsillectomy History of wisdom tooth extraction Status post placement of implantable loop recorder Implanted 2014 and explanted Oct 2018 Family History Father Cancer Other No family history of adverse response to anesthesia Social History Smoking Status: Never smoker Second Hand Exposure: No; Do You Dip or Chew Tobacco: No; Tobacco Cessation Education Requested by Patient: No Hx Alcohol Use: Yes Alcohol type: other Hx Substance Use: No Preferred Language: Kazakh Communication Ability: Effective Linux System Engineer Required: No Beliefs That Will Affect Care: None Current Living Situation: Spouse Other Information That Helps Us Care for You: No Feels Safe at Home: Yes Safety Concerns: Feels Safe At This Time Assistive Devices: Glasses Physical Exam Physical Exam: GENERAL: 72 yo well-developed, well-nourished WM. NAD. LUNGS: Clear to auscultation bilaterally. No accessory muscle use. No W/R/R. CARDIOVASCULAR: Regular rate and rhythm. No M/G/R. No JVD. ABDOMEN: Soft, non-tender and non-distended. BS normoactive x 4 quad. : Clemente in place with irrigation, urine pale yellow in bag EXTREMITIES: No edema. Non-tender. Peripheral pulses +2/4. Results & Data Results & Data Vital Signs (Past 12 Hours) Vital Signs Temp Pulse Pulse Resp BP Pulse Ox Pulse Ox 01/27/23 10:36 36.3 C L 47 L 126/75 97 01/27/23 10:31 97 01/27/23 10:10 48 L 16 122/74 99 01/27/23 10:00 36.4 C L 49 L 10 L 113/71 99 01/27/23 09:50 48 L 12 115/66 97 01/27/23 09:40 49 L 14 116/71 98 01/27/23 09:30 36.0 C L 50 L 12 117/76 98 01/27/23 06:05 36.4 C L 49 L 20 129/78 95 O2 Del Method O2 Del Method O2 Flow Rate 01/27/23 10:36 Room Air 01/27/23 10:31 Room Air 01/27/23 10:10 Room Air 01/27/23 10:00 Room Air 01/27/23 09:50 Oxymask 4 01/27/23 09:40 Oxymask 6 01/27/23 09:30 Oxymask 8 01/27/23 06:05 Room Air Laboratory Results Pre-op labs dated 01/13 including cbc and bmp reviewed covid testing performed 01/27 was negative PG Care Time/CCT Total # of Minutes Spent Total Time Spent with Patient: Total time spent is greater than 50% in coordination of care (as documented) at patient's floor/unit and/or counseling patient: Coding Level of Care Code 23916 IN/OBS CONSULT LVL 4,60M Diagnoses Benign localized prostatic hyperplasia with lower urinary tract symptoms (LUTS) N40.1 Paroxysmal SVT (supraventricular tachycardia) I47.1 Diabetes E11.9 Hypertension I10
[2023-01-27] MEDS ORDERED: GLUCOSE 40% GEL 15 GM TUBE PO PRN (11:11)
[2023-01-27] MEDS ORDERED: GLUCOSE 10 TAB/TUBE PO PRN (11:11)
[2023-01-27] MEDS ORDERED: GLUCAGON FOR INJ 1 MG VIAL SQ PRN (11:11)
[2023-01-27] MEDS ORDERED: CARBOHYDRATES FOR HYPOGLYCEMIA PO PRN (11:11)
[2023-01-27] MEDS ORDERED: DEXTROSE 50% 50 ML SYRINGE IV PRN (11:11)
[2023-01-27] MEDS: METOPROLOL SUCC 50MG EXT REL TAB PO SCH ×2 (11:37→20:38)
[2023-01-27] MEDS: DIGOXIN 0.125 MG TAB PO SCH (11:47)
[2023-01-27] MEDS: SODIUM CHLORIDE 0.9% 1000ML 1,000 ML IV SCH (11:57)
[2023-01-27 12:16] LABS: Basophils # (auto) 0.03 K/uL (0-0.2); Basophils % (auto) 0.5 %; Eosinophils # (auto) 0.02 K/uL (0-0.50); Eosinophils % (auto) 0.3 %; Hematocrit (blood only) 41.4 % (42.0-52.0); Hemoglobin 14.4 g/dl (14.0-18.0); Immature Granulocytes # (auto) 0.03 K/uL (0.01-0.20); Immature Granulocytes % (auto) 0.5 %; Lymphocytes # (auto) 1.17 K/uL (1.2-3.4); Lymphocytes % (auto) 19.9 %; Mean Corpuscular Hemoglobin 32.2 pg (25.0-34.0); Mean Corpuscular Hgb Conc 34.8 g/dL (32.0-36.0); Mean Corpuscular Volume 92.6 fL (80.0-100.0); Mean Platelet Volume 10.7 fL (9.4-12.4); Monocytes % (auto) 1.7 %; Neutrophils # (auto) 4.52 K/uL (1.40-6.50); Neutrophils % (auto) 77.1 %; Platelet Count 197 K/uL (130-400); RDW Coefficient of Variation 13.2 % (11.5-14.5); RDW Standard Deviation 44.9 fL (36.4-46.3); Red Blood Count 4.47 M/uL (4.70-6.10); White Blood Count 5.87 K/ul (4.8-10.8)
[2023-01-27 12:30] LABS: BUN Creatinine Ratio 21.6 (10-20); Calcium 9.1 mg/dl (8.6-10.3); Creatinine Clr Calc Pharmacy 64.4 ml/min; Est GFR (African American) 59.1 ml/min; Potassium 4.1 mmol/L (3.5-5.1)
[2023-01-27] MEDS: DOCUSATE SODIUM 100 MG CAP PO SCH ×2 (12:41→20:38)
[2023-01-27] MEDS: INSULIN ASPART PER UNIT CHARGE SC SCH ×3 (13:08→20:39)
[2023-01-27] MEDS: ceFAZolin 2000MG 2,000 MG/15 ML SYR IV SCH ×2 (15:34→23:12)
[2023-01-27] MEDS: metFORMIN HCL 500 MG TAB PO SCH (18:00)
[2023-01-27] MEDS ORDERED: LANTUS PER UNIT CHARGE SQ SCH (21:00)
[2023-01-27] MEDS ORDERED: TAMSULOSIN HCL 0.4 MG CAP PO SCH (21:00)
[2023-01-27] MEDS ORDERED: TRIAMTERENE/HCTZ 37.5/25MG TAB PO SCH (21:00)
[2023-01-28] MEDS: SODIUM CHLORIDE 0.9% 1000ML 1,000 ML IV SCH (00:40)
[2023-01-28] MEDS: ceFAZolin 2000MG 2,000 MG/15 ML SYR IV SCH (05:54)
--- NOTE | 2023-01-28 08:53 | Urology Progress Note ---
Date of Service January 28, 2023 Assessment & Plan (1) Benign localized prostatic hyperplasia with lower urinary tract symptoms (LUTS): (2) Bladder stones: Plan: Pt POD#1 s/p Photoselective Vaporization of the Prostate Using the Greenlight Laser, Laser Enucleation of Prostate, and Destruction and extraction of bladder stones with Dr. Felipe - Doing well, progressing as expected - Tolerating PO diet - 3 way Cruz catheter intact, patent and draining clear urine with CBI on slow - CBI clamped @0800, nursing aware - will reassess later this AM - Maintain Cruz catheter for approximately 1 week - Anticipate home with Cruz catheter later today presuming urine appropriate and he continues to progress as expected - Will arrange outpatient follow-up with our service for voiding trial and follow-up Patient reassessed mid morning. Cruz patent and draining yellow urine with blood tinged sediment in tubing pinking urine slightly with CBI clamped. Patient feeling well and is ready for discharge now. Okay to discontinue CBI set up and plug irrigation port. Maintain Cruz catheter. He will resume Xarelto tonight per cardiology/hospital team. Expected clinical course reviewed, all questions answered Admission and Anticipated Discharge Date Admission Date: January 27, 2023 Subjective Patient seen and examined this morning. He is awake and resting in bed. No acute issues overnight. Denies discomfort. Cruz patent and draining clear urine with CBI on slow. CBI clamped at 0800, nursing made aware. No nausea or vomiting. No fever or chills. Review of Systems Constitutional: as per Subjective / HPI Gastrointestinal: as per Subjective / HPI Genitourinary: + as per Subjective / HPI Physical Exam Constitutional: well developed and well nourished; no acute distress and not ill appearing Respiratory: normal respiratory effort; no respiratory distress and no labored breathing Cardiovascular: Extremities: no pedal edema Gastrointestinal (Abdomen): Inspection/Auscultation: abdomen normal to inspection; abdomen not distended Neurologic: moves all extremities and awake Psychiatric: Orientation: alert and oriented x 3 Genitourinary: Cruz patent and draining clear urine with CBI on slow. CBI clamped at 0800, nursing made aware. Results & Data Vital Signs (Past 12 Hours) Vital Signs Temp Pulse Resp BP Pulse Ox O2 Del Method 01/28/23 07:18 36.6 C 53 L 18 111/63 96 Room Air 01/28/23 03:02 36.5 C 59 L 18 105/63 95 Room Air 01/27/23 22:37 36.5 C 58 L 18 119/60 95 Room Air PG Care Time/CCT Total # of Minutes Spent Total Time Spent with Patient: Total time spent is greater than 50% in coordination of care (as documented) at patient's floor/unit and/or counseling patient: Coding Level of Care Code None Diagnoses Benign localized prostatic hyperplasia with lower urinary tract symptoms (LUTS) N40.1 Bladder stones N21.0
[2023-01-28] MEDS: DIGOXIN 0.125 MG TAB PO SCH (09:30)
[2023-01-28] MEDS: METOPROLOL SUCC 50MG EXT REL TAB PO SCH (09:30)
[2023-01-28] MEDS: DOCUSATE SODIUM 100 MG CAP PO SCH (09:33)
[2023-01-28] MEDS: metFORMIN HCL 500 MG TAB PO SCH (09:33)
[2023-01-28] MEDS: INSULIN ASPART PER UNIT CHARGE SC SCH ×2 (09:43→13:00)
[2023-01-28 10:01] LABS: Estimated Average Glucose 217 mg/dl; Hemoglobin A1C 9.2 % (4.5-5.6)
--- NOTE | 2023-01-28 12:08 | Hospitalist Progress Note ---
Date of Service January 28, 2023 Assessment & Plan (1) Benign localized prostatic hyperplasia with lower urinary tract symptoms (LUTS): Plan: Chronic/unstable S/p photoselective vaporization of the prostate using the greenlight laser, laser enucleation of the prostate, and destruction and extraction of bladder stones by Dr. Felipe 01/27 - Abx ppx/IVF/pain control/clemente care as outlined by primary team - Continue Tamsulosin and Finasteride (2) Paroxysmal SVT (supraventricular tachycardia): Plan: Chronic/stable - Currently in regular rhythm - Continue Toprol XL and Digoxin - Resume Xarelto tonight (3) Diabetes: Plan: Chronic/unstable - Diabetic diet - AC and HS accuchecks - Continue Metformin 1000mg BID (was on 500mg BID at home) - Continue Lantus 22u qHS and add lispro meal coverage with CF 35 and CR 12 - HgbA1C was 9.2 (9.0 in ) - Follow up with PCP (4) Hypertension: Plan: Chronic/stable - Well controlled - BP 111/63 - Continue Toprol and Triamterene/HCTZ Plan Recommendations as outlined above. Thank you for allowing us to participate in the care of your patient. Patient is medically stable for discharge home from a medical standpoint. Admission and Anticipated Discharge Date Admission Date: January 27, 2023 Subjective Patient seen and examined this morning. He is awake and laying in bed. He denies any compliants and states he hopes to go home today. Xarelto was held and patient to restart this medication tonight. He is passing flatus but no BM. Review of Systems Review of Systems: Denies any chest pain, SOB, Dyspnea, nausea, vomiting, abdominal or back pain. All other ROS negative Physical Exam Constitutional: WD/WN, vitals as above Neck: trachea midline, no thyromegaly Respiratory: normal respiratory effort, lungs clear to auscultation Cardiovascular: RRR, no murmur, no edema Gastrointestinal (Abdomen): normal bowel sounds, soft, nontender, no hepatosplenomegaly Genitourinary: clemente in place, yellow urine in bag Results & Data Results & Data Vital Signs (Past 12 Hours) Vital Signs Temp Pulse Pulse Resp BP Pulse Ox O2 Del Method 01/28/23 09:45 Room Air 01/28/23 09:30 53 L 01/28/23 07:18 36.6 C 53 L 18 111/63 96 Room Air 01/28/23 03:02 36.5 C 59 L 18 105/63 95 Room Air Laboratory Results Abnormal lab results 01/27/23 01/27/23 01/27/23 Range/Units 11:45 11:45 12:10 RBC 4.47 L (4.70-6.10) M/uL Hct 41.4 L (42.0-52.0) % Lymph # (Auto) 1.17 L (1.2-3.4) K/uL [place] # (Auto) 0.10 L (0.11-0.59) K/uL BUN 30 H (6-23) mg/dl BUN/Creatinine Ratio 21.6 H (10-20) Glucose 209 H (70-99(Fasting)) mg/dl POC Glucose 200 H (70-99) mg/dl Hemoglobin A1c (4.5-5.6) % 01/27/23 01/27/23 01/28/23 Range/Units 17:08 19:59 07:26 RBC (4.70-6.10) M/uL Hct (42.0-52.0) % Lymph # (Auto) (1.2-3.4) K/uL [place] # (Auto) (0.11-0.59) K/uL BUN (6-23) mg/dl BUN/Creatinine Ratio (10-20) Glucose (70-99(Fasting)) mg/dl POC Glucose 255 H 275 H (70-99) mg/dl Hemoglobin A1c 9.2 H (4.5-5.6) % 01/28/23 Range/Units 08:33 RBC (4.70-6.10) M/uL Hct (42.0-52.0) % Lymph # (Auto) (1.2-3.4) K/uL [place] # (Auto) (0.11-0.59) K/uL BUN (6-23) mg/dl BUN/Creatinine Ratio (10-20) Glucose (70-99(Fasting)) mg/dl POC Glucose 109 H (70-99) mg/dl Hemoglobin A1c (4.5-5.6) % PG Care Time/CCT Total # of Minutes Spent Total Time Spent with Patient: Total time spent is greater than 50% in coordination of care (as documented) at patient's floor/unit and/or counseling patient: Coding Level of Care Code 62569 SUB INP/OBS CARE Diagnoses Benign localized prostatic hyperplasia with lower urinary tract symptoms (LUTS) N40.1 Paroxysmal SVT (supraventricular tachycardia) I47.1 Diabetes E11.9 Hypertension I10
--- NOTE | 2023-01-28 13:55 | Discharge Summary ---
Date of Service January 28, 2023 Admission HPI Per Admitting Provider Patient with BPH with obstruction and bladder stones here for greenlight TURP and cystolitholapaxy. Admission Exam Per Admitting Provider General: Alert in no acute distress. HEENT: Normocephalic Atraumatic. Inspection normal. Psychologic: Normal affect. Respiratory: Nonlabored. Cardiovascular: No tachycardia Skin: [place] and Dry. Principal Diagnosis BPH with obstruction, bladder stones Discharge Exam Constitutional well developed and well nourished; no acute distress and not ill appearing Respiratory normal respiratory effort; no respiratory distress and no labored breathing Cardiovascular Extremities: no pedal edema Gastrointestinal (Abdomen) Inspection/Auscultation: abdomen normal to inspection; abdomen not distended Neurologic moves all extremities and awake Psychiatric Orientation: alert and oriented x 3 Genitourinary Cruz catheter patent and draining pink urine after irrigation clamped. Discharge Data Allergies Allergy/AdvReac Type Severity Reaction Status Date / Time adhesive Allergy Intermediate RASH/BLISTE Verified 01/27/23 06:01 RS grass pollen Allergy Intermediate congestion Verified 01/27/23 06:01 Iodinated Contrast Media Allergy Intermediate NAUSEA & Verified 01/27/23 06:01 VOMIT pollen extracts Allergy Intermediate congestion Verified 01/27/23 06:01 tree and shrub pollen Allergy Intermediate congestion Verified 01/27/23 06:01 latex Allergy Mild Rash Verified 01/27/23 06:01 ciprofloxacin AdvReac Intermediate DISORIENTAT Verified 01/27/23 06:01 ION metronidazole AdvReac Intermediate DISORIENTAT Verified 01/27/23 06:01 ION Consultations 01/27/23 10:31 Consult Hospitalist Routine Procedures Performed Operation Date: 01/27/23 07:15 Actual Procedures p Photoselective Vaporization of the Prostate Using the Greenlight Laser, Enucleation of Prostate, - Sourav Felipe DO s Cystolithopaxy - Sourav Felipe DO Hospital Course (1) Benign localized prostatic hyperplasia with lower urinary tract symptoms (LUTS): (2) Bladder stones: Pt POD#1 s/p Photoselective Vaporization of the Prostate Using the Greenlight Laser, Laser Enucleation of Prostate, and Destruction and extraction of bladder stones with Dr. Felipe - Doing well, progressing as expected - Tolerating PO diet - 3 way Cruz catheter intact, patent and draining clear urine with CBI on slow - CBI clamped @0800, nursing aware - will reassess later this AM - Maintain Cruz catheter for approximately 1 week - Anticipate home with Cruz catheter later today presuming urine appropriate and he continues to progress as expected - Will arrange outpatient follow-up with our service for voiding trial and follow-up Patient reassessed mid morning. Cruz patent and draining yellow urine with blood tinged sediment in tubing pinking urine slightly with CBI clamped. Patient feeling well and is ready for discharge now. Okay to discontinue CBI set up and plug irrigation port. Maintain Cruz catheter. He will resume Xarelto tonight per cardiology/hospital team. Expected clinical course reviewed, all questions answered Total Time Total Time Spent Total Time Spent (In Minutes): 29 Discharge Plan Discharge Items Patient Disposition: Home - Self-Care Reason For Visit: BHP WITH OBSTRUCTION, BLADDER STONES Discharge Diagnosis: BPH with obstruction, bladder stones Activity: Per Instructions section Lifting: No more than 25 pounds Bathing Comment: Okay to shower after discharge, no tub bath or soaking Sexual Activity: Wait until after follow-up appointment Exercise/Sports: Wait until after follow-up appointment Driving/Machine Use: Resume 1 day after discharge Non-emergency contact: Surgeon and Urologist Call non-emergency contact if: your pain is not controlled, you have a fever and your temperature is above 101.5 Follow-up/Referrals: Sourav Felipe DO [Physician] - 02/04/23 9:20 am Sandoval Burgos [Primary Care Provider] - Diet: Carb Consistent or DM2 Addtl Attending Provider Instructions: Please take all medications as prescribed and keep all follow-ups as scheduled. Please call our office at [phone] with any questions, concerns or need to reschedule appointments for any reason. We are happy to assist you. Resume your Xarelto tonight. Take a stool softener as needed. Tips for your recovery at home: Dont be alarmed by brownish or reddish blood or clots in your urine. This is a result of the procedure. This may occur off and on for weeks to months after the procedure but should continue to improve. Drink plenty of fluids during the day (enough to keep your urine very light colored). This will help keep a healthy flow of urine. Do not lift >25 lbs until your followup Avoid constipation. Please use a stool softener (Colace) for the first two weeks after your procedure Be sure to finish the antibiotics as prescribed. If you go home with a catheter, please wash tubing where it enters your body twice daily with mild soap (Dove or Dial). Once your catheter is removed, expect some blood in your urine and some burning when you urinate. You should have an appointment to have this removed, if you do not please call our office to arrange. Pending Studies at Discharge: Yes (pathology) Stand-Alone Forms: My [facility], Smoking Cessation Medications and DC Order Prescriptions: New cephalexin 500 mg capsule 500 mg PO BID 7 Days Qty: 14 0RF docusate sodium [Colace] 100 mg capsule 100 mg PO BID Qty: 60 0RF Rx Instructions: Take twice daily for 2 weeks, then as needed for constipation. oxycodone-acetaminophen [Percocet] 5-325 mg tablet 1 tab PO TID PRN (Reason: pain) Qty: 7 0RF Continued Xarelto 20 mg tablet 20 mg PO QPM Qty: 90 3RF Rx Instructions: must administer with a meal/food metoprolol succinate 100 mg tablet extended release 24 hr 100 mg PO BID Qty: 180 3RF diclofenac sodium 75 mg tablet,delayed release (DR/EC) 75 mg PO BID PRN (Reason: Pain) triamterene-hydrochlorothiazid 37.5-25 mg tablet 1 tab PO QPM metformin 500 mg Tablet 500 mg PO BID tamsulosin 0.4 mg capsule 0.4 mg PO QPM digoxin 125 mcg (0.125 mg) tablet 125 mcg PO QAM finasteride 5 mg tablet 5 mg PO QPM cetirizine [Zyrtec] 10 mg tablet 10 mg PO DAILY PRN (Reason: Allergy Symptoms) insulin glargine [Lantus Solostar U-100 Insulin] 100 unit/mL (3 mL) Insulin Pen 22 unit SUBCUT PM Qty: 0 0RF Patient Comments: on 01-20-23 per pt is now 30 units in the pm Discharge Orders: Discharge Order (Routine); Ordered 01/28/23 Ordered By: Nguyen Perez Admission Data Admit Date/Time: 01/27/23 07:11 Attending Provider: Sourav Felipe Admit Provider: Sourav Felipe Primary Care Provider: Sandoval Burgos Other Providers: Rafiq Carbajal ; Chana Rock ; Nitin Groves ; Ancelmo Mann ; Juan Pablo Terry ; Ayad Cortes ; Madan Rae ; Nohemy Corley ; Naomi Thomas ; Vlad Carmichael ; Boris Perez ; Letha Benavidez ; Jet Garcia ; Darlyn Cheng ; Melodie Rogers ; Guilherme Valenzuela ; Joey Mckinnon ; Erum Matthews ; Chana Rolon ; Bo Moya ; Juan R Mendez ; Nitin Salgado ; Ирина Quiroz ; Milton Zavaleta ; Brayan Holly ; Leesa Chen ; Sonido Moore ; Manny Martínez ; Darling Cortes ; Van Simon ; Katerin Torres ; Siddhartha Nowak ; Matt Ocampo ; Nicole Couch ; Cheri Ricks ; Ancelmo Platt Coding Level of Care Code 48571 IN/OBS DISCH 30 MIN/LESS Diagnoses Benign localized prostatic hyperplasia with lower urinary tract symptoms (LUTS) N40.1 Bladder stones N21.0 Time Spent (min) 29
== END 2023-01-28 15:00 | disposition home or self-care (01) ==
LOC: 3N 05:37 → ASU 05:37

== ENCOUNTER 2023-04-09 08:05 | Inpatient (IN) ==
--- NOTE | 2023-04-09 08:40 | Emergency Department Note ---
Impression & Plan Pneumonia, EMRE (acute kidney injury), Acute hyponatremia, Acute dehydration, Weakness ED Provider Note NAME: BEATRIS CHUN AGE: 72 SEX: M : 1950 ARRIVES VIA: Walk-In INFORMANT: Patient, ED PROVIDER(S): Garcia Parekh MD CHIEF COMPLAINT: Fatigue, achiness MEDICAL DECISION MAKING: Patient presents due to concern for fatigue and associated achiness. IV was established blood work is obtained along with urinalysis and urine culture. The patient was treated with IV fluids IV Toradol and IV Zofran. Bio fire obtained along with a Lyme's. Patient's postvoid residual was only 19 mL. Patient is not retaining. The patient's bio fire is negative. The patient's blood work shows a very mild leukocytosis of 11.4 with a normal hemoglobin and platelet count. Kidney function with a creatinine 1.98 which is up from January at 1.39 but the patient has been as high as 2.1 in the past. Patient was ordered additional IV fluids. Hyponatremia noted at 131 which is acute. I did discuss inpatient treatment versus close outpatient follow-up. The patient would for to go home. The patient was ordered additional IV fluids. Urinalysis with ketones consistent with dehydration. The patient does have trace leuks as well as white cells noted. Negative for bacteria and nitrites. We will treat for possible UTI as the patient is not having any associated urinary retention but does have the urge to urinate. Urine culture was pending. Lyme is negative. Chest x-ray was obtained as the patient was noted to be hypoxemic but the patient has no shortness of breath or cough. Patient may have an element of CALE. Monitor reconcilement clerk had noted that the patient may have been in A-fib flutter. I did review the patient's monitor strip. The patient does have a known history of prior A-fib with RVR and is on digoxin and Xarelto. An EKG was obtained. EKG does show A-fib. The patient states that he is asymptomatic. On the monitor the patient is in the 80s and 90s. Chest x-ray does show the possibility of pneumonia. Given this with his intermittent hypoxia hyponatremia curb 65 score of 2 I did speak with the patient he is amenable to inpatient treatment. I did speak with Dr. Martínez and the patient was admitted to the medicine service. Prior /Outside records reviewed: Did review a urology visit note with Dr. Felipe with a history of BPH and lower urinary tract symptoms. Patient with significant bladder outlet obstruction. Patient did have photoselective vaporization of the prostate using greenlight laser obstruction extraction of bladder stones by Dr. Felipe on January 27, 2023. Did review for prior urine culture with Klebsiella oxytocin sensitive to Rocephin Differential diagnosis: Infection, dehydration, metabolic abnormality, hypo/hyperglycemia, electrolyte disturbance, anemia, UTI, viral syndrome, obstructive uropathy, urinary retention Diagnostics, as interpreted by me: ECG: A-fib, RVR, rate of 104, normal axis no ST elevations. Cardiac monitoring: An order was placed for continuous cardiac monitoring. The monitor shows a rate of 77 with sinus rhythm. Patient was placed on pulse oximetry Medical decision rules: CURB 65 score Imaging studies: See below I informally reviewed the patient's chest x-ray which does show increased haziness to the left lung no obvious pneumothorax. HPI: Patient presents with family member bedside due to concern for achiness and fatigue. The patient has noted the symptoms beginning around Tuesday he did self test for COVID which is negative. The patient states that over the last week the patient feels as though he has had some difficulty with complete urination. Patient does complain of some lower back discomfort but no flank pain. They did think that he had a low-grade temperature of 99 did receive some Tylenol and the was concerned as they did do an infrared temp gone which showed a temperature of 93. No chills. The patient denies any chest pains or shortness of breath. No cough. Patient did recently travel to [place] to visit his daughter and returned on Tuesday around the same time that his symptoms began. Nobody was sick during the time of his visit. Patient denies any dysuria or hematuria no blood in the stool. The patient does use finasteride to help with his prostate did have a prostate procedure completed by Dr. Felipe back in January. The patient states that he had been doing quite well up until about a week ago when he felt as though he had increasing urgency and incomplete emptying of his bladder. PAST MEDICAL HISTORY: See Below PAST SURGICAL HISTORY: See Below SOCIAL HISTORY: See Below HOME MEDICATIONS: See Below ALLERGIES: See Below VITALS: See Below PHYSICAL EXAMINATION: GENERAL: NAD, wearing a mask, non-toxic. Fatigable in appearance, wearing glasses. EYE EXAM: Normal conjunctiva. PERRL, no anisocoria and EOM's grossly intact w/o pain. NECK: Supple, no nuchal rigidity, no adenopathy, non-tender. No signs of meningismus. FROM of the neck with good chin to chest and neck extension. No stridor. LUNGS: Clear to auscultation. Normal chest wall mechanics. HEART: NSR, no MRG. ABDOMEN: Abdomen soft, non-tender, no masses, no rebound or guarding. BACK: No CVA TTP. SKIN: No rashes and no bruising. UPPER EXTREMITIES: Upper extremities are grossly normal. LOWER EXTREMITIES: Grossly normal, no edema. NEURO EXAM: A&O x3, cranial nerves II-XII grossly intact, normal speech, moves all 4 extremities. Past Med/Surg History Medical History BPH (benign prostatic hyperplasia) Degenerative arthritis of knee, bilateral Diabetes IDDM History of COVID-19 04/2022- mild symptoms > resolved Hypertension Kidney stones Mnire's disease Paroxysmal atrial fibrillation Follows with Dr. Larkin Surgical History History of cholecystectomy History of cystoscopy with insertion of ureteral stent; history of lithotripsy History of prostate biopsy History of removal of ureteral stent History of tonsillectomy History of wisdom tooth extraction Status post placement of implantable loop recorder Implanted 2014 and explanted Oct 2018 Family History Father Cancer Other No family history of adverse response to anesthesia Social History Smoking Status: Never smoker Second Hand Exposure: No; Do You Dip or Chew Tobacco: No; Hx Alcohol Use: Yes Alcohol type: other Hx Substance Use: No Preferred Language: Pakistani Communication Ability: Effective Unit Leader Required: No Beliefs That Will Affect Care: None Current Living Situation: Spouse Feels Safe at Home: Yes Assistive Devices: None Allergies Allergies Allergy/AdvReac Type Severity Reaction Status Date / Time adhesive Allergy Intermediate RASH/BLISTE Verified 01/27/23 06:01 RS grass pollen Allergy Intermediate congestion Verified 01/27/23 06:01 Iodinated Contrast Media Allergy Intermediate NAUSEA & Verified 01/27/23 06:01 VOMIT pollen extracts Allergy Intermediate congestion Verified 01/27/23 06:01 tree and shrub pollen Allergy Intermediate congestion Verified 01/27/23 06:01 latex Allergy Mild Rash Verified 01/27/23 06:01 ciprofloxacin AdvReac Intermediate DISORIENTAT Verified 01/27/23 06:01 ION metronidazole AdvReac Intermediate DISORIENTAT Verified 01/27/23 06:01 ION Home Meds Home Medications Medication Instructions Recorded Confirmed cetirizine 10 mg tablet (Zyrtec) 10 mg PO DAILY PRN Allergy Symptoms 10/30/21 04/09/23 diclofenac sodium 75 mg 75 mg PO BID PRN Pain 12/01/21 04/09/23 tablet,delayed release triamterene 37.5 1 tab PO QPM 04/14/22 04/09/23 mg-hydrochlorothiazide 25 mg tablet digoxin 125 mcg (0.125 mg) tablet 125 mcg PO QAM 01/20/23 04/09/23 metformin 500 mg tablet 500 mg PO BID 01/20/23 04/09/23 insulin glargine 100 unit/mL (3 30 unit subcut PM 04/09/23 04/09/23 mL) subcutaneous pen (Lantus Solostar U-100 Insulin) lisinopril 0 mg PO DAILY 04/09/23 04/09/23 Previous Rx's Medication Instructions Recorded rivaroxaban 20 mg tablet (Xarelto) 20 mg PO QPM #90 tabs 07/19/22 metoprolol succinate 100 mg 100 mg PO BID #180 tabs 01/19/23 tablet,extended release 24 hr finasteride 5 mg tablet 5 mg PO QPM #90 tabs 03/21/23 tamsulosin 0.4 mg capsule 0.4 mg PO HS #90 caps 03/24/23 Results & Data (ED) Vital Signs Vital Signs - 24 hr 04/09/23 08:09 04/09/23 09:22 04/09/23 09:04 Temperature 36.3 C L Temperature Source Temporal Artery Scan Pulse Rate 73 66 Pulse Rate from SpO2 Sensor Respiratory Rate 22 Respiratory Effort / Characteristics Non-Labored Spontaneous Respiratory Depth Normal Blood Pressure 115/73 Blood Pressure Mean 87 Pulse Oximetry 93 92 Oxygen Delivery Method Room Air Room Air Sepsis New/Unexplained Change in Mental Status N/A Sepsis Action Taken by Nursing No Action Required 04/09/23 09:21 04/09/23 09:21 04/09/23 10:00 Temperature Temperature Source Pulse Rate 66 Pulse Rate from SpO2 Sensor 66 Respiratory Rate 23 Respiratory Effort / Characteristics Respiratory Depth Blood Pressure 124/70 103/64 Blood Pressure Mean 89 82 Pulse Oximetry 92 Oxygen Delivery Method Sepsis New/Unexplained Change in Mental Status Sepsis Action Taken by Nursing 04/09/23 10:00 04/09/23 12:09 Temperature Temperature Source Pulse Rate 62 88 Pulse Rate from SpO2 Sensor 61 Respiratory Rate 16 Respiratory Effort / Characteristics Respiratory Depth Blood Pressure Blood Pressure Mean Pulse Oximetry 90 Oxygen Delivery Method Sepsis New/Unexplained Change in Mental Status Sepsis Action Taken by Snf Medications Current Medication List: was personally reviewed by me Laboratory Data Attestation: I reviewed the patient's lab results. 04/09/23 09:15 04/09/23 09:15 Lab Results 04/09/23 04/09/23 04/09/23 Range/Units 09:10 09:10 09:15 WBC 11.48 H (4.8-10.8) K/ul RBC 4.55 L (4.70-6.10) M/uL Hgb 14.6 (14.0-18.0) g/dl Hct 40.2 L (42.0-52.0) % MCV 88.4 (80.0-100.0) fL MCH 32.1 (25.0-34.0) pg MCHC 36.3 H (32.0-36.0) g/dL RDW Std Deviation 41.8 (36.4-46.3) fL RDW Coeff of Ministerio 12.9 (11.5-14.5) % Plt Count 203 (130-400) K/uL MPV 10.5 (9.4-12.4) fL Immature Gran % (Auto) 0.9 % Neut % (Auto) 74.4 % Lymph % (Auto) 10.7 % [place] % (Auto) 13.8 % Eos % (Auto) 0.0 % Baso % (Auto) 0.2 % Neut # (Auto) 8.55 H (1.40-6.50) K/uL Lymph # (Auto) 1.23 (1.2-3.4) K/uL [place] # (Auto) 1.58 H (0.11-0.59) K/uL Eos # (Auto) 0.00 (0-0.50) K/uL Baso # (Auto) 0.02 (0-0.2) K/uL Immature Gran # (Auto) 0.10 (0.01-0.20) K/uL Sodium (136-145) mmol/L Potassium (3.5-5.1) mmol/L Chloride (98-107) mmol/L Carbon Dioxide (21-32) mmol/L Anion Gap (3-11) BUN (6-23) mg/dl Creatinine (0.6-1.4) mg/dl Est Cr Clr Drug Dosing ml/min Est GFR ( Amer) ml/min Est GFR (Non-Af Amer) ml/min BUN/Creatinine Ratio (10-20) Glucose (70-99(Fasting)) mg/dl Calcium (8.6-10.3) mg/dl Total Bilirubin (0.2-1.0) mg/dl AST (13-39) U/L ALT (7-52) U/L Alkaline Phosphatase (34-104) U/L Total Protein (6.0-8.3) gm/dl Albumin (3.4-5.0) gm/dl Globulin (2.5-4.0) gm/dl Albumin/Globulin Ratio (0.9-2) Lipase (11-82) U/L Procalcitonin (0-0.5) ng/ml Urine Color Dark Yellow Urine Appearance Cloudy A (Clear) Urine pH 5.5 (4.5-7.5) Ur Specific Browning 1.018 (1.000-1.030) Urine Protein 2+ H (Negative) Urine Glucose (UA) Negative (Negative) Urine Ketones 1+ H (Negative) Urine Blood 3+ H (Negative) Urine Nitrite Negative (Negative) Urine Bilirubin Negative (Negative) Urine Urobilinogen Negative (Negative) Ur Leukocyte Esterase Trace H (Negative) Urine WBC (Auto) 10-30 H (0-5) /hpf Urine RBC (Auto) >30 H (0-4) /hpf U Hyaline Cast (Auto) 1-5 (0-5) /lpf U Epithel Cells (Auto) 10-20 H (0-5) /lpf Urine Bacteria (Auto) Negative (Negative) Adenovirus (PCR) Not Detected (NotDetected) B. pertussis DNA (PCR) Not Detected (NotDetected) B.parapertussis DNA PCR Not Detected (NotDetected) Lyme Disease IgG Ab (Negative) Lyme Disease IgM Ab (Negative) C. pneumoniae DNA (PCR) Not Detected (NotDetected) Coronavirus OC43 (PCR) Not Detected (NotDetected) Coronavirus HKU1 (PCR) Not Detected (NotDetected) Coronavirus 229E (PCR) Not Detected (NotDetected) SARS-CoV-2 (PCR) Not Detected (NotDetected) Coronavirus NL63 (PCR) Not Detected (NotDetected) Human Metapneumovir PCR Not Detected (NotDetected) Influenza Type A (PCR) Not Detected (NotDetected) Influenza Type B (PCR) Not Detected (NotDetected) M. pneumoniae (PCR) Not Detected (NotDetected) Parainfluenza 1 (PCR) Not Detected (NotDetected) Parainfluenza 2 (PCR) Not Detected (NotDetected) Parainfluenza 3 (PCR) Not Detected (NotDetected) Parainfluenza 4 (PCR) Not Detected (NotDetected) RSV (PCR) Not Detected (NotDetected) Entero/Rhino (PCR) Not Detected (NotDetected) 04/09/23 04/09/23 Range/Units 09:15 09:15 WBC (4.8-10.8) K/ul RBC (4.70-6.10) M/uL Hgb (14.0-18.0) g/dl Hct (42.0-52.0) % MCV (80.0-100.0) fL MCH (25.0-34.0) pg MCHC (32.0-36.0) g/dL RDW Std Deviation (36.4-46.3) fL RDW Coeff of Ministerio (11.5-14.5) % Plt Count (130-400) K/uL MPV (9.4-12.4) fL Immature Gran % (Auto) % Neut % (Auto) % Lymph % (Auto) % [place] % (Auto) % Eos % (Auto) % Baso % (Auto) % Neut # (Auto) (1.40-6.50) K/uL Lymph # (Auto) (1.2-3.4) K/uL [place] # (Auto) (0.11-0.59) K/uL Eos # (Auto) (0-0.50) K/uL Baso # (Auto) (0-0.2) K/uL Immature Gran # (Auto) (0.01-0.20) K/uL Sodium 131 L (136-145) mmol/L Potassium 4.1 (3.5-5.1) mmol/L Chloride 98 (98-107) mmol/L Carbon Dioxide 22 (21-32) mmol/L Anion Gap 11 (3-11) BUN 27 H (6-23) mg/dl Creatinine 1.98 H (0.6-1.4) mg/dl Est Cr Clr Drug Dosing 45.0 ml/min Est GFR ( Amer) 38.5 ml/min Est GFR (Non-Af Amer) 33.2 ml/min BUN/Creatinine Ratio 13.6 (10-20) Glucose 162 H (70-99(Fasting)) mg/dl Calcium 8.9 (8.6-10.3) mg/dl Total Bilirubin 0.7 (0.2-1.0) mg/dl AST 15 (13-39) U/L ALT 13 (7-52) U/L Alkaline Phosphatase 51 (34-104) U/L Total Protein 7.4 (6.0-8.3) gm/dl Albumin 3.5 (3.4-5.0) gm/dl Globulin 3.9 (2.5-4.0) gm/dl Albumin/Globulin Ratio 0.9 (0.9-2) Lipase 19 (11-82) U/L Procalcitonin 0.21 (0-0.5) ng/ml Urine Color Urine Appearance (Clear) Urine pH (4.5-7.5) Ur Specific Browning (1.000-1.030) Urine Protein (Negative) Urine Glucose (UA) (Negative) Urine Ketones (Negative) Urine Blood (Negative) Urine Nitrite (Negative) Urine Bilirubin (Negative) Urine Urobilinogen (Negative) Ur Leukocyte Esterase (Negative) Urine WBC (Auto) (0-5) /hpf Urine RBC (Auto) (0-4) /hpf U Hyaline Cast (Auto) (0-5) /lpf U Epithel Cells (Auto) (0-5) /lpf Urine Bacteria (Auto) (Negative) Adenovirus (PCR) (NotDetected) B. pertussis DNA (PCR) (NotDetected) B.parapertussis DNA PCR (NotDetected) Lyme Disease IgG Ab Negative (Negative) Lyme Disease IgM Ab Negative (Negative) C. pneumoniae DNA (PCR) (NotDetected) Coronavirus OC43 (PCR) (NotDetected) Coronavirus HKU1 (PCR) (NotDetected) Coronavirus 229E (PCR) (NotDetected) SARS-CoV-2 (PCR) (NotDetected) Coronavirus NL63 (PCR) (NotDetected) Human Metapneumovir PCR (NotDetected) Influenza Type A (PCR) (NotDetected) Influenza Type B (PCR) (NotDetected) M. pneumoniae (PCR) (NotDetected) Parainfluenza 1 (PCR) (NotDetected) Parainfluenza 2 (PCR) (NotDetected) Parainfluenza 3 (PCR) (NotDetected) Parainfluenza 4 (PCR) (NotDetected) RSV (PCR) (NotDetected) Entero/Rhino (PCR) (NotDetected) Administered Medications Discontinued Medications Sodium Chloride (Nss 1000ml) 1,000 mls @ 999 mls/hr IV .Q1H1M STA Stop: 04/09/23 10:03 Last Infusion: 04/09/23 10:08 Dose: 0 mls/hr Documented By: Admin: 04/09/23 09:14 Dose: 999 mls/hr Documented By: BRENDA Ceftriaxone Sodium (Rocephin) 2,000 mg in 70 mls @ 140 mls/hr IV NOW STA Stop: 04/09/23 11:36 Last Infusion: 04/09/23 12:49 Dose: 0 mls/hr Documented By: Admin: 04/09/23 11:26 Dose: 140 mls/hr Documented By: BRENDA Sodium Chloride (Nss 1000ml) 1,000 mls @ 999 mls/hr IV .Q1H1M ONE Stop: 04/09/23 12:07 Last Infusion: 04/09/23 12:49 Dose: 0 mls/hr Documented By: Admin: 04/09/23 11:27 Dose: 999 mls/hr Documented By: BRENDA Ketorolac Tromethamine (Ketorolac Tromethamine 15 Mg/Ml Vial) 10 mg IV NOW STA Stop: 04/09/23 09:04 Last Admin: 04/09/23 09:14 Dose: 10 mg Documented By: BRENDA Ondansetron HCl (Ondansetron Inj 2 Mg/Ml 2 Ml Vial) 4 mg IV NOW STA Stop: 04/09/23 09:04 Last Admin: 04/09/23 09:14 Dose: 4 mg Documented By: BRENDA Imaging Data Radiologist's Impression: Chest X-Ray 04/09/23 11:06 XR chest 1V portable CLINICAL HISTORY: hypoxia; possible CALE TECHNIQUE: Single frontal radiograph of the chest was obtained. Comparison: Comparison is made to chest radiograph 01/13/2023 FINDINGS: No lines and tubes are seen. Calcified aortic knob is seen. Atelectasis is in the right lung base. There is mild airspace opacity in the left lateral lung. No evidence of pleural effusion or pneumothorax. IMPRESSION: Airspace opacity in the left lateral lung may represent atelectasis, pneumonia, and/or aspiration. ACT 112: Negative or not required by law. Electronically signed by: Jesus Cardona M.D. 04/09/2023 12:25 PM Discharge Plan Visit Data Chief Complaint: Nausea Stated Complaint: NAUSEA,DIZZY ED Provider: Garcia Parekh Discharge Problem: Pneumonia, EMRE (acute kidney injury), Acute hyponatremia, Acute dehydration, Weakness Forms Stand Alone Forms: [facility] [employer] Prescriptions Prescriptions: No Action Xarelto 20 mg tablet 20 mg PO QPM Qty: 90 3RF Rx Instructions: must administer with a meal/food metoprolol succinate 100 mg tablet extended release 24 hr 100 mg PO BID Qty: 180 3RF finasteride 5 mg tablet 5 mg PO QPM Qty: 90 3RF tamsulosin 0.4 mg capsule 0.4 mg PO HS Qty: 90 3RF diclofenac sodium 75 mg tablet,delayed release (DR/EC) 75 mg PO BID PRN (Reason: Pain) triamterene-hydrochlorothiazid 37.5-25 mg tablet 1 tab PO QPM metformin 500 mg Tablet 500 mg PO BID digoxin 125 mcg (0.125 mg) tablet 125 mcg PO QAM lisinopril 0 mg PO DAILY Rx Instructions: Per pt he isn't sure of dose, thinks maybe 20 mg insulin glargine [Lantus Solostar U-100 Insulin] 100 unit/mL (3 mL) insulin pen 30 unit SUBCUT PM Patient Comments: on 01-20-23 per pt is now 30 units in the pm cetirizine [Zyrtec] 10 mg tablet 10 mg PO DAILY PRN (Reason: Allergy Symptoms) Referrals Referrals: Sandoval Burgos [Primary Care Provider] -
[2023-04-09] MEDS ORDERED: ONDANSETRON INJ 2 MG/ML 2 ML VIAL IV STA (09:03)
[2023-04-09] MEDS ORDERED: SODIUM CHLORIDE 0.9% 1000ML 1,000 ML IV STA (09:03)
[2023-04-09] MEDS ORDERED: KETOROLAC TROMETHAMINE 15 MG/ML VIAL IV STA (09:03)
[2023-04-09 09:33] LABS: Basophils # (auto) 0.02 K/uL (0-0.2); Basophils % (auto) 0.2 %; Hematocrit (blood only) 40.2 % (42.0-52.0); Hemoglobin 14.6 g/dl (14.0-18.0); Immature Granulocytes % (auto) 0.9 %; Lymphocytes # (auto) 1.23 K/uL (1.2-3.4); Lymphocytes % (auto) 10.7 %; Mean Corpuscular Hemoglobin 32.1 pg (25.0-34.0); Mean Corpuscular Hgb Conc 36.3 g/dL (32.0-36.0); Mean Corpuscular Volume 88.4 fL (80.0-100.0); Mean Platelet Volume 10.5 fL (9.4-12.4); Monocytes # (auto) 1.58 K/uL (0.11-0.59); Monocytes % (auto) 13.8 %; Neutrophils # (auto) 8.55 K/uL (1.40-6.50); Neutrophils % (auto) 74.4 %; Platelet Count 203 K/uL (130-400); RDW Coefficient of Variation 12.9 % (11.5-14.5); RDW Standard Deviation 41.8 fL (36.4-46.3); Red Blood Count 4.55 M/uL (4.70-6.10); White Blood Count 11.48 K/ul (4.8-10.8)
[2023-04-09 09:35] LABS: Appearance Urine Cloudy (Clear); Bacteria Urine Automated Negative (Negative); Bilirubin Urine Negative (Negative); Blood Urine 3+ (Negative); Color Urine Dark Yellow; Glucose Urine UA Negative (Negative); Ketones Urine 1+ (Negative); Leukocyte Esterase Urine Trace (Negative); Nitrite Urine Negative (Negative); Protein Urine 2+ (Negative); RBC Urine Automated >30 /hpf (0-4); Specific Gravity Urine 1.018 (1.000-1.030); Urobilinogen Urine Negative (Negative); pH Urine 5.5 (4.5-7.5)
[2023-04-09 09:57] LABS: Albumin Level 3.5 gm/dl (3.4-5.0); Bilirubin,Total 0.7 mg/dl (0.2-1.0); Calcium 8.9 mg/dl (8.6-10.3); Potassium 4.1 mmol/L (3.5-5.1)
[2023-04-09 10:03] LABS: Albumin Globulin Ratio 0.9 (0.9-2); BUN Creatinine Ratio 13.6 (10-20); Est GFR (African American) 38.5 ml/min; Est GFR (Non-African American) 33.2 ml/min; Globulin 3.9 gm/dl (2.5-4.0); Total Protein 7.4 gm/dl (6.0-8.3)
[2023-04-09 10:23] LABS: Adenovirus PCR Not Detected (NotDetected); Bordetella parapertussis PCR Not Detected (NotDetected); Bordetella pertussis PCR Not Detected (NotDetected); Chlamydia pneumoniae PCR Not Detected (NotDetected); Coronavirus 229E PCR Not Detected (NotDetected); Coronavirus CoV-2 (COVID19)PCR Not Detected (NotDetected); Coronavirus HKU1 PCR Not Detected (NotDetected); Coronavirus NL63 PCR Not Detected (NotDetected); Coronavirus OC43PCR Not Detected (NotDetected); Human Metapneumovirus PCR Not Detected (NotDetected); Influenza A PCR Not Detected (NotDetected); Influenza B PCR Not Detected (NotDetected); Mycoplasma pneumoniae PCR Not Detected (NotDetected); Parainfluenza Virus 1 PCR Not Detected (NotDetected); Parainfluenza Virus 2 PCR Not Detected (NotDetected); Parainfluenza Virus 3 PCR Not Detected (NotDetected); Parainfluenza Virus 4 PCR Not Detected (NotDetected); Respiratory Syncytial VirusPCR Not Detected (NotDetected); Rhinovirus/Enterovirus PCR Not Detected (NotDetected)
[2023-04-09] MEDS ORDERED: SODIUM CHLORIDE 0.9% 1000ML 1,000 ML IV ONE (11:07)
[2023-04-09] MEDS ORDERED: cefTRIAXone SODIUM 2,000 MG/70 ML BAG IV STA (11:07)
[2023-04-09 11:32] LABS: Procalcitonin 0.21 ng/ml (0-0.5)
[2023-04-09 11:38] LABS: Lyme Ab IgG w/WB Rflx Negative (Negative); Lyme Ab IgM w/WB Rflx Negative (Negative)
--- NOTE | 2023-04-09 12:27 | XRay Report ---
XR chest 1V portable CLINICAL HISTORY: hypoxia; possible CALE TECHNIQUE: Single frontal radiograph of the chest was obtained. Comparison: Comparison is made to chest radiograph 01/13/2023 FINDINGS: No lines and tubes are seen. Calcified aortic knob is seen. Atelectasis is in the right lung base. Th ere is mild airspace opacity in the left lateral lung. No evidence of pleural effusion or pneumothora x. IMPRESSION: Airspace opacity in the left lateral lung may represent atelectasis, pneumonia, and/or aspiration. ACT 112: Negative or not required by law. Electronically signed by: Jesus Cradona M.D. 04/09/2023 12:25 PM
--- NOTE | 2023-04-09 13:25 | History & Physical Report ---
Date of Service April 09, 2023 Assessment & Plan (1) Pneumonia: Plan: Acute hypoxic respiratory failure, suspect left pneumonia Patient with easy fatigue, hypoxia to the mid 80s while in ER -Chest x-ray: Airspace opacity of left lateral wrung suspicious for atelectas is's, pneumonia, aspiration -Leukocytosis of 11.48. Procalcitonin is negative Procalcitonin is normal, viral bio fire is negative Given curb 65 to hypoxia will admit and treat empirically for community- acquired pneumonia Patient is with increased urinary retention symptoms and history of this, UA is potentially infected appearing but is covered with antibiotics for pneumonia as well Legionella antigen added as noted History of urinary retention, acute oliguria - Patient with recent history of greenlight laser vaporization 01/27/2023 UA: Trace leukocyte esterase, 10-20 epithelial cells, blood, ketones, no bacteria. UCx pending Covered with antibiotics for UTI as above Bladder scan every shift, if postvoid residual greater than 350, straight cath. If more than 1 straight cath required, Place [facility]. - PVR 19cc in ER, no signs of obstruction Suspect oliguria in the setting of volume depletion and EMRE rather than obstruction A-fib, with acute RVR With mild RVR rate around 110 on admission Downtrended with IV FM, clinically volume depleted Continue digoxin, level pending Continue metoprolol Continue rivaroxaban. 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 intake is improving Trend BMP daily Lisinopril, Maxide held for EMRE Weakness -Diffuse with muscle aches Suspect due to infectious etiology, management as above PT/OT pending Hyponatremia, acute - New hyponatremia of 131 Does not show evidence of volume overload, or acute obstructive urologic pathology In the setting of pneumonia,? SIADH versus solute depletion Given poor intake for several days and clinical volume depletion suspect will improve. If downtrends with repletion, will fluid restrict and treat assess ADH at that point Urine studies pending Urine Legionella pending Type II DM, chronic Hold metformin Basal bolus SSI Continue basal glargine 30 units, SSI based on basal requirement; CF 25/CR 10 Glucose checks AC/at bedtime, DM diet History of SVT, chronic without recurrence on admission We will monitor on telemetry DVT prophylaxis: Anticoagulated Diet: Type II DM Disposition: PCU given history of A-fib RVR and SVT requiring IV rate control CODE STATUS: DNR/DNI, discussed with patient and at bedside History of Present Illness Primary Care Provider: Sandoval Burgos Ranulfo Esqueda is a 72-year-old male with a past medical history of BPH and LUTS, paroxysmal A-fib on rivaroxaban and rate controlled with digoxin/metoprolol, hypertension, paroxysmal SVT who presents to the ER with generalized achiness, fatigue, lower back discomfort, feeling of feverishness, difficulty voiding and was recommended for admission for increased risk pneumonia with occurred 65 of 2. Ranulfo reports for 1 week has felt very weak and nauseus. Aching muscles and joints all over. 2 months ago had a prostate operation which actually helped a lot, seemed to have no trouble urinating 1 week ago had decreased voiding down to a trickle. Didnt have a strong void to urge, thinks maybe he just wasn't making much urine Mild intermittent cough 'hours apart' but no recent persistent cough No fevers. Had chills yesterday +night sweats, has some night sweats normally but seemed worse with chills last 1-2 days with hot-cold alternating chills eating and drinking poorly for a few days, first real meal in last day or two was today. Took all his medications this morning No diarrhea or stomach upset Hx afib, on xarelto Medical History: Reviewed Medications: Reviewed Surgical History: Reviewed Family history: Reviewed Allergies: Reviewed Social History: No tobacco or etoh use Code Status: DNR/DNI Allergies Allergy/AdvReac Type Severity Reaction Status Date / Time adhesive Allergy Intermediate RASH/BLISTE Verified 01/27/23 06:01 RS grass pollen Allergy Intermediate congestion Verified 01/27/23 06:01 Iodinated Contrast Media Allergy Intermediate NAUSEA & Verified 01/27/23 06:01 VOMIT pollen extracts Allergy Intermediate congestion Verified 01/27/23 06:01 tree and shrub pollen Allergy Intermediate congestion Verified 01/27/23 06:01 latex Allergy Mild Rash Verified 01/27/23 06:01 ciprofloxacin AdvReac Intermediate DISORIENTAT Verified 01/27/23 06:01 ION metronidazole AdvReac Intermediate DISORIENTAT Verified 01/27/23 06:01 ION Home Medications Medication Instructions Recorded Confirmed Type cetirizine 10 mg tablet (Zyrtec) 10 mg PO DAILY PRN Allergy Symptoms 10/30/21 04/09/23 History diclofenac sodium 75 mg 75 mg PO BID PRN Pain 12/01/21 04/09/23 History tablet,delayed release triamterene 37.5 1 tab PO QPM 04/14/22 04/09/23 History mg-hydrochlorothiazide 25 mg tablet rivaroxaban 20 mg tablet (Xarelto) 20 mg PO QPM #90 tabs 07/19/22 04/09/23 Rx metoprolol succinate 100 mg 100 mg PO BID #180 tabs 01/19/23 04/09/23 Rx tablet,extended release 24 hr digoxin 125 mcg (0.125 mg) tablet 125 mcg PO QAM 01/20/23 04/09/23 History metformin 500 mg tablet 500 mg PO BID 01/20/23 04/09/23 History finasteride 5 mg tablet 5 mg PO QPM #90 tabs 03/21/23 04/09/23 Rx tamsulosin 0.4 mg capsule 0.4 mg PO HS #90 caps 03/24/23 04/09/23 Rx insulin glargine 100 unit/mL (3 30 unit subcut PM 04/09/23 04/09/23 History mL) subcutaneous pen (Lantus Solostar U-100 Insulin) lisinopril 0 mg PO DAILY 04/09/23 04/09/23 History Past Med/Surg History Medical History BPH (benign prostatic hyperplasia) Degenerative arthritis of knee, bilateral Diabetes IDDM History of COVID-19 04/2022- mild symptoms > resolved Hypertension Kidney stones Mnire's disease Paroxysmal atrial fibrillation Follows with Dr. Larkin Surgical History History of cholecystectomy History of cystoscopy with insertion of ureteral stent; history of lithotripsy History of prostate biopsy History of removal of ureteral stent History of tonsillectomy History of wisdom tooth extraction Status post placement of implantable loop recorder Implanted 2014 and explanted Oct 2018 Family History Father Cancer Other No family history of adverse response to anesthesia Social History Smoking Status: Never smoker Second Hand Exposure: No; Do You Dip or Chew Tobacco: No; Hx Alcohol Use: Yes Alcohol type: other Hx Substance Use: No Preferred Language: Macedonian Communication Ability: Effective Panel Builder Required: No Beliefs That Will Affect Care: None Current Living Situation: Spouse Feels Safe at Home: Yes Assistive Devices: None Review of Systems Review of Systems: All systems reviewed & are unremarkable except as noted in Subjective Physical Exam Physical Exam: General: A&Ox3. NAD. Cooperative. HEENT: Atraumatic, normocephalic. Dukas membranes dry. Vision/hearing grossly intact Pulm: CTAB A&P. -wheezes, -rales, -rhonchi. Symmetrical chest rise. No increased work of breathing. No respiratory distress. Cardiac: Irregular, tachycardic. Radial pulses intact and symmetrical. Abdominal: Nontender, nondistended, soft. BS present. Extremities: Warm, dry. No edema Results & Data Results & Data Vital Signs (Past 12 Hours) Vital Signs Temp Pulse Resp BP Pulse Ox O2 Del Method 04/09/23 12:09 88 04/09/23 10:00 62 16 90 04/09/23 10:00 103/64 04/09/23 09:21 66 23 92 04/09/23 09:21 124/70 04/09/23 09:04 92 Room Air 04/09/23 09:22 66 04/09/23 08:09 36.3 C L 73 22 115/73 93 Room Air PG Care Time/CCT Total # of Minutes Spent Total Time Spent with Patient: Total time spent is greater than 50% in coordination of care (as documented) at patient's floor/unit and/or counseling patient: Coding Level of Care Code 68783 INT INP/OBS CARE 3MIN Diagnoses Pneumonia J18.9 Laterality: left Lung location: unspecified part of lung Pneumonia type: due to unspecified organism (1) Pneumonia Laterality: left Lung location: unspecified part of lung Pneumonia type: due to unspecified organism Qualified Code(s): J18.9 - Pneumonia, unspecified organism
[2023-04-09 16:28] LABS: BUN Creatinine Ratio 14.5 (10-20); Calcium 8.5 mg/dl (8.6-10.3); Creatinine Clr Calc Pharmacy 43.1 ml/min; Est GFR (African American) 36.5 ml/min; Est GFR (Non-African American) 31.5 ml/min; Potassium 4.5 mmol/L (3.5-5.1)
--- NOTE | 2023-04-09 18:14 | Electrocardiogram Report ---
Test Reason : Blood Pressure : / mmHG Vent. Rate : 104 BPM Atrial Rate : 000 BPM P-R Int : 000 ms QRS Dur : 110 ms QT Int : 326 ms P-R-T Axes : 000 011 264 degrees QTc Int : 428 ms Atrial flutter with variable A-V block with rapid ventricular response Nonspecific T wave abnormality Abnormal ECG When compared with ECG of 13-JAN-2023 09:59, Atrial flutter has replaced Sinus rhythm Vent. rate has increased BY 44 BPM Nonspecific T wave abnormality, worse in Inferior leads Nonspecific T wave abnormality now evident in Lateral leads Confirmed by Mj Andrews ([id number]) on 04/09/2023 6:14:21 PM Referred By: REFERRED SELF Confirmed By:Mj Andrews
[2023-04-09] MEDS ORDERED: CARBOHYDRATES FOR HYPOGLYCEMIA PO PRN (19:15)
[2023-04-09] MEDS ORDERED: CETIRIZINE HCL 10 MG TABLET PO PRN (19:15)
[2023-04-09] MEDS ORDERED: DEXTROSE 50% 50 ML SYRINGE IV PRN (19:15)
[2023-04-09] MEDS ORDERED: GLUCOSE 40% GEL 15 GM TUBE PO PRN (19:15)
[2023-04-09] MEDS ORDERED: GLUCAGON FOR INJ 1 MG VIAL SQ PRN (19:15)
[2023-04-09] MEDS ORDERED: GLUCOSE 10 TAB/TUBE PO PRN (19:15)
[2023-04-09] MEDS: ACETAMINOPHEN 325 MG TAB PO PRN (19:41)
[2023-04-09] MEDS ORDERED: RIVAROXABAN 15 MG TAB PO SCH (19:45)
[2023-04-09] MEDS: INSULIN ASPART PER UNIT CHARGE SC SCH ×2 (20:11→20:12)
[2023-04-09] MEDS: FINASTERIDE 5 MG TAB PO SCH (20:49)
[2023-04-09] MEDS: TAMSULOSIN HCL 0.4 MG CAP PO SCH (20:50)
[2023-04-09] MEDS: METOPROLOL SUCC 50MG EXT REL TAB PO SCH (20:50)
[2023-04-09] MEDS: LANTUS PER UNIT CHARGE SQ SCH (20:50)
[2023-04-10] MEDS: ACETAMINOPHEN 325 MG TAB PO PRN ×4 (03:16→23:53)
--- NOTE | 2023-04-10 08:23 | Hospitalist Progress Note ---
Date of Service April 10, 2023 Assessment & Plan (1) Pneumonia: Plan: 72 M with past medical history of A-fib with RVR (controlled on metoprolol, rivaroxaban), CKD, DM 2 (metformin), who presented to the emergency room with fatigue, hypoxia to the 80s and was admitted for management of presumed community-acquired pneumonia. Acute hypoxic respiratory failure/left lung opacity -Patient with easy fatigue, hypoxia to the mid 80s while in ER -CXR: Airspace opacity of left lateral wrung suspicious for atelectasis, pneumonia, aspiration pneumonia/pneumonitis. -Leukocytosis of 11.48. Procalcitonin is negative -Procalcitonin is normal, viral bio fire is negative -Patient is with increased urinary retention symptoms and history of this, UA is potentially infected appearing but is covered with antibiotics for pneumonia as well -Legionella antigen added as noted. Low suspicion for Legionella at this point however. * IV ceftriaxone 2 g daily. * Continue IV until ~>48 hours post fever, at which point switch to p.o. History of urinary retention, acute oliguria -Patient with recent history of green light laser vaporization 01/27/2023 -UA: Trace leukocyte esterase, 10-20 epithelial cells, blood, ketones, no bacteria. UCx pending -Covered with antibiotics for UTI as above -Bladder scan every shift, if postvoid residual greater than 350, straight cath. If more than 1 straight cath required, Place [facility]. -PVR 19 cc in ER, no signs of obstruction -Suspect oliguria in the setting of volume depletion and EMRE rather than obstruction A-fib, with acute RVR -With mild RVR rate around 110 on admission -Downtrended with IV FM, clinically volume depleted. -Digoxin level mildly infra-therapeutic. * Continue digoxin * Continue metoprolol * Continue rivaroxaban. EMRE on CKD -Creatinine baseline approximately 1.391.9, 1.98 on admission -Clinically volume depleted with dry mucous membranes -Received 2 L NSS with improvement in blood pressure and heart rate * Trend BMP daily * Holding lisinopril, dexamethasone Weakness -Diffuse with muscle aches Suspect due to infectious etiology, management as above * PT/OT evaluation pending Hyponatremia, acute -New hyponatremia of 131 -Does not show evidence of volume overload, or acute obstructive urologic pathology -Likely secondary to dehydration secondary to primary process. Already improving on IV NS repletion. -Given poor intake for several days and clinical volume depletion suspect will improve. If downtrends with repletion, will fluid restrict and treat assess ADH at that point -Urine studies pending. Urine Legionella pending though unlikely to yield pertinent diagnostic information * Discontinue IV fluids * Initiate diet at lunchtime * Trend BMP Type II DM, chronic -Managed with metformin outpatient. * Home metformin held on admission. * Basal bolus SSI: Basal glargine 30 units daily; bolus NovoLog (CF-25 CR-10) * BSG ACHS per protocol DVT prophylaxis: Home rivaroxaban Diet: Carb consistent Disposition: PCU (A-fib + RVR, SVT) CODE STATUS: DNR/DNI Admission and Anticipated Discharge Date Admission Date: April 09, 2023 Supervising Physician Co-Signing Physician Notes I personally examined the patient and verified all jackson points of history and exam, discussed case, and agree with decision making with Dr Moreno Feeling better. Was able to shower without significant dyspnea. Still little bit of a cough. Just spiked a temp of about 102 and half. present, asks very good questions which I answered to the best my ability. Vitals noted, in general he is awake and alert pleasant no distress. HEENT normocephalic atraumatic mucous membranes moist. Breathing unlabored no accessory muscle use good effort. Skin shows no rashes no pallor or icterus. Neuro without focal deficits. Labs noted, x-ray reviewed. CAPviral versus bacterial unclear, treating as bacterial, appears like he is improving, is on room airdiscussed that certainly we would like to see him fever free, but if everything else is improving that does not have to be a hard line contraindication to dischargefollow into tomorrow, follow clinically follow vitals, follow CBC CRP and procalcitoninif preponderance of clinical picture is reassuring, hopefully home. Zithromax/Rocephin Subjective Patient had mild fever to 38.2, for which she received a single dose of p.o. Tylenol. This morning, patient is resting comfortably on arrival. is at bedside. He reports significant improvement in fatigue, shortness of breath. He denies dysuria. He has no acute complaints. Review of Systems Review of Systems: All systems reviewed & are unremarkable except as noted in HPI & below Physical Exam Physical Exam: General: No acute distress HEENT: PERRLA. Normal conjunctiva, anicteric sclera. Oropharynx normal. Respiratory: Normal respiratory effort, CTABL. Cardiovascular: RRR without murmurs, gallops, or rubs. No pedal edema. GI: Soft abdomen with normal bowel sounds heard on auscultation. Neuro: Alert and oriented x3. Results & Data Results & Data Vital Signs (Past 12 Hours) Vital Signs Temp Pulse Pulse Resp BP Pulse Ox O2 Del Method 04/10/23 07:56 37.8 C H 79 20 112/68 91 Room Air 04/10/23 06:00 74 04/10/23 03:14 38.6 C H 95 H 18 102/62 91 Room Air 04/09/23 22:02 64 04/09/23 23:22 36.9 C 62 18 103/62 93 Room Air 04/09/23 20:48 37.8 C H Resident Activity Tracking Resident Involvement: Resident Care Provided Care Provided: Adult Hospital Medicine (1) Pneumonia Laterality: left Lung location: unspecified part of lung Pneumonia type: due to unspecified organism Qualified Code(s): J18.9 - Pneumonia, unspecified organism
[2023-04-10 08:29] LABS: Basophils # (auto) 0.03 K/uL (0-0.2); Basophils % (auto) 0.4 %; Eosinophils # (auto) 0.02 K/uL (0-0.50); Eosinophils % (auto) 0.3 %; Hematocrit (blood only) 40.6 % (42.0-52.0); Hemoglobin 14.1 g/dl (14.0-18.0); Immature Granulocytes # (auto) 0.09 K/uL (0.01-0.20); Immature Granulocytes % (auto) 1.1 %; Lymphocytes # (auto) 1.05 K/uL (1.2-3.4); Lymphocytes % (auto) 13.3 %; Mean Corpuscular Hemoglobin 31.7 pg (25.0-34.0); Mean Corpuscular Hgb Conc 34.7 g/dL (32.0-36.0); Mean Corpuscular Volume 91.2 fL (80.0-100.0); Mean Platelet Volume 10.8 fL (9.4-12.4); Monocytes # (auto) 1.32 K/uL (0.11-0.59); Monocytes % (auto) 16.8 %; Neutrophils # (auto) 5.37 K/uL (1.40-6.50); Neutrophils % (auto) 68.1 %; Platelet Count 191 K/uL (130-400); RDW Coefficient of Variation 13.2 % (11.5-14.5); RDW Standard Deviation 44.3 fL (36.4-46.3); Red Blood Count 4.45 M/uL (4.70-6.10); White Blood Count 7.88 K/ul (4.8-10.8)
[2023-04-10 08:46] LABS: BUN Creatinine Ratio 14.6 (10-20); Calcium 8.2 mg/dl (8.6-10.3); Creatinine Clr Calc Pharmacy 51.4 ml/min; Est GFR (Non-African American) 39.7 ml/min; Potassium 3.8 mmol/L (3.5-5.1)
[2023-04-10] MEDS: INSULIN ASPART PER UNIT CHARGE SC SCH ×4 (08:49→20:11)
[2023-04-10] MEDS: LANTUS PER UNIT CHARGE SQ SCH ×2 (08:49→20:11)
[2023-04-10] MEDS: METOPROLOL SUCC 50MG EXT REL TAB PO SCH ×2 (08:50→20:12)
[2023-04-10] MEDS: DIGOXIN 0.125 MG TAB PO SCH (08:50)
[2023-04-10] MEDS ORDERED: cefTRIAXone SODIUM 2,000 MG in DEXTROSE 5% 50 ML IV SCH (09:00)
[2023-04-10] MEDS ORDERED: RIVAROXABAN 20 MG TAB PO SCH (16:30)
[2023-04-10] MEDS ORDERED: AZITHROMYCIN 250 MG TAB PO ONE (18:41)
--- NOTE | 2023-04-10 18:44 | Billing Data ---
Date of Service April 10, 2023 Coding Level of Care Code 41497 SUB INP/OBS CARE MIN
[2023-04-10] MEDS: FINASTERIDE 5 MG TAB PO SCH (20:12)
[2023-04-10] MEDS: TAMSULOSIN HCL 0.4 MG CAP PO SCH (20:12)
[2023-04-11 07:02] LABS: Basophils # (auto) 0.04 K/uL (0-0.2); Basophils % (auto) 0.5 %; Eosinophils # (auto) 0.07 K/uL (0-0.50); Eosinophils % (auto) 0.8 %; Hematocrit (blood only) 45.1 % (42.0-52.0); Hemoglobin 16.1 g/dl (14.0-18.0); Immature Granulocytes # (auto) 0.08 K/uL (0.01-0.20); Immature Granulocytes % (auto) 0.9 %; Lymphocytes # (auto) 2.41 K/uL (1.2-3.4); Lymphocytes % (auto) 27.9 %; Mean Corpuscular Hemoglobin 32.2 pg (25.0-34.0); Mean Corpuscular Hgb Conc 35.7 g/dL (32.0-36.0); Mean Corpuscular Volume 90.2 fL (80.0-100.0); Mean Platelet Volume 10.5 fL (9.4-12.4); Monocytes # (auto) 1.17 K/uL (0.11-0.59); Monocytes % (auto) 13.5 %; Neutrophils # (auto) 4.87 K/uL (1.40-6.50); Neutrophils % (auto) 56.4 %; Platelet Count 229 K/uL (130-400); RDW Coefficient of Variation 13.3 % (11.5-14.5); RDW Standard Deviation 43.9 fL (36.4-46.3); White Blood Count 8.64 K/ul (4.8-10.8)
[2023-04-11 07:21] LABS: BUN Creatinine Ratio 13.7 (10-20); C Reactive Protein 28.87 mg/dl (0-0.5); Calcium 8.9 mg/dl (8.6-10.3); Creatinine Clr Calc Pharmacy 47.8 ml/min; Est GFR (African American) 42.4 ml/min; Est GFR (Non-African American) 36.6 ml/min; Potassium 3.7 mmol/L (3.5-5.1)
[2023-04-11 08:11] LABS: Estimated Average Glucose 223 mg/dl; Hemoglobin A1C 9.4 % (4.5-5.6)
[2023-04-11] MEDS: INSULIN ASPART PER UNIT CHARGE SC SCH ×4 (08:36→21:16)
[2023-04-11] MEDS: LANTUS PER UNIT CHARGE SQ SCH ×2 (08:37→21:15)
[2023-04-11] MEDS: METOPROLOL SUCC 50MG EXT REL TAB PO SCH ×2 (08:37→21:18)
[2023-04-11] MEDS: DIGOXIN 0.125 MG TAB PO SCH (08:37)
[2023-04-11] MEDS: AZITHROMYCIN 250 MG TAB PO SCH (08:37)
[2023-04-11] MEDS: CEFDINIR 300 MG CAP PO SCH ×2 (09:41→21:19)
--- NOTE | 2023-04-11 10:19 | Hospitalist Progress Note ---
Date of Service April 11, 2023 Assessment & Plan (1) Pneumonia: Plan: 72 M with past medical history of A-fib with RVR (controlled on metoprolol, rivaroxaban), CKD, DM 2 (metformin), who presented to the emergency room with fatigue, hypoxia to the 80s and was admitted for management of presumed community-acquired pneumonia. Acute hypoxic respiratory failure 2/2 community acquired pneumonia -CXR: Airspace opacity of left lateral wrung suspicious for atelectasis, pneumonia, aspiration pneumonia/pneumonitis. -Leukocytosis of 11.48 on admission, procalcitonin negative, RVP negative -Legionella antigen pending -Ceftriaxone switched to cefdinir today -Continue cefdinir, azithromycin- plan for 7-10 days of treatment -Currently saturating well on RA Atrial fibrillation with RVR -With mild RVR rate around 110 on admission -clinically volume depleted. Improved with IV hydration, . -Currently rate-controlled, sinus * Continue digoxin * Continue metoprolol -Continue Xarelto- dose adjusted due to EMRE EMRE in setting of CKD3 -Creatinine baseline approximately 1.41.7, 1.98 on admission -Received 2 L NSS with improvement in Cr initially to 1.7 -Cr worsening over past 2 days, currently 1.9 -NSS repletion ordered -Hold nephrotoxins -Trend BMP Generalized weakness -Diffuse with muscle aches, deconditioning suspected Suspect due to infectious etiology, management as above * PT/OT evaluation- recommend return to home Hyponatremia, acute -New hyponatremia of 131 on admission -Does not show evidence of volume overload, or acute obstructive urologic pathology -Likely secondary to dehydration secondary to primary process. Improved initially to 135 with NSS repletion -Na 131 today, repleting with NSS -Trend BMP Type II DM -Managed with metformin outpatient. * Home metformin held on admission. * Basal bolus SSI: Basal glargine 30 units daily; bolus NovoLog (CF-25 CR-10) * BSG ACHS per protocol DVT prophylaxis: Home rivaroxaban Diet: Carb consistent Disposition: PCU CODE STATUS: DNR/DNI Admission and Anticipated Discharge Date Admission Date: April 09, 2023 Supervising Physician Co-Signing Physician Notes Resident Physician Supervision Note: I independently interviewed and examined the patient and verified the jackson history and physical, reviewed labs and image studies and agree with resident findings and care plan. Subjective Acute events overnight- none. 39.0 C fever spike on night prior, resolved with Tylenol. Pt examined at bedside. Reports feeling well, denies dyspnea or chest pain. Review of Systems Review of Systems: Per HPI Physical Exam Physical Exam: General: No acute distress HEENT: Normal conjunctiva, anicteric sclerae. Respiratory: Normal respiratory effort, CTAB, no crackles or wheezes. Cardiovascular: RRR without murmurs, gallops, or rubs. No pedal edema Neuro: Alert and oriented x3. Results & Data Results & Data Vital Signs (Past 12 Hours) Vital Signs Temp Pulse Pulse Resp BP Pulse Ox O2 Del Method 04/11/23 08:37 74 04/11/23 07:29 36.8 C 74 20 126/78 94 Room Air 04/11/23 03:30 36.7 C 74 18 100/62 96 Room Air 04/11/23 00:50 37.8 C H 04/10/23 23:44 39.0 C H 82 18 102/66 95 Room Air Resident Activity Tracking Resident Involvement: Resident Care Provided Care Provided: Adult Hospital Medicine (1) Pneumonia Laterality: left Lung location: unspecified part of lung Pneumonia type: due to unspecified organism Qualified Code(s): J18.9 - Pneumonia, unspecified organism
[2023-04-11 13:24] LABS: BUN Creatinine Ratio 15.5 (10-20); Calcium 8.6 mg/dl (8.6-10.3); Creatinine Clr Calc Pharmacy 45.3 ml/min; Est GFR (African American) 39.7 ml/min; Est GFR (Non-African American) 34.3 ml/min; Potassium 4.1 mmol/L (3.5-5.1)
[2023-04-11] MEDS ORDERED: SODIUM CHLORIDE 0.9% 1000ML 1,000 ML IV SCH (13:30)
[2023-04-11] MEDS ORDERED: RIVAROXABAN 15 MG TAB PO SCH (16:30)
[2023-04-11] MEDS: FINASTERIDE 5 MG TAB PO SCH (21:18)
[2023-04-11] MEDS: TAMSULOSIN HCL 0.4 MG CAP PO SCH (21:18)
[2023-04-12 06:59] LABS: Basophils # (auto) 0.07 K/uL (0-0.2); Basophils % (auto) 0.9 %; Eosinophils # (auto) 0.31 K/uL (0-0.50); Eosinophils % (auto) 3.8 %; Hematocrit (blood only) 43.4 % (42.0-52.0); Immature Granulocytes # (auto) 0.06 K/uL (0.01-0.20); Immature Granulocytes % (auto) 0.7 %; Lymphocytes # (auto) 2.66 K/uL (1.2-3.4); Lymphocytes % (auto) 32.3 %; Mean Corpuscular Hemoglobin 31.7 pg (25.0-34.0); Mean Corpuscular Hgb Conc 34.6 g/dL (32.0-36.0); Mean Corpuscular Volume 91.8 fL (80.0-100.0); Mean Platelet Volume 10.7 fL (9.4-12.4); Monocytes # (auto) 1.29 K/uL (0.11-0.59); Monocytes % (auto) 15.7 %; Neutrophils # (auto) 3.84 K/uL (1.40-6.50); Neutrophils % (auto) 46.6 %; Platelet Count 250 K/uL (130-400); RDW Coefficient of Variation 13.4 % (11.5-14.5); RDW Standard Deviation 45.7 fL (36.4-46.3); Red Blood Count 4.73 M/uL (4.70-6.10); White Blood Count 8.23 K/ul (4.8-10.8)
[2023-04-12 07:30] LABS: BUN Creatinine Ratio 15.3 (10-20); Calcium 8.5 mg/dl (8.6-10.3); Creatinine Clr Calc Pharmacy 58.3 ml/min; Est GFR (African American) 53.9 ml/min; Est GFR (Non-African American) 46.5 ml/min; Potassium 3.5 mmol/L (3.5-5.1)
[2023-04-12] MEDS: LANTUS PER UNIT CHARGE SQ SCH (08:51)
[2023-04-12] MEDS: INSULIN ASPART PER UNIT CHARGE SC SCH (08:51)
[2023-04-12] MEDS: CEFDINIR 300 MG CAP PO SCH (08:52)
[2023-04-12] MEDS: AZITHROMYCIN 250 MG TAB PO SCH (08:52)
[2023-04-12] MEDS: METOPROLOL SUCC 50MG EXT REL TAB PO SCH (08:52)
[2023-04-12] MEDS: DIGOXIN 0.125 MG TAB PO SCH (08:52)
--- NOTE | 2023-04-12 09:48 | Discharge Summary ---
Date of Service April 12, 2023 Admission HPI Per Admitting Provider Ranulfo Esqueda is a 72-year-old male with a past medical history of BPH and LUTS, paroxysmal A-fib on rivaroxaban and rate controlled with digoxin/metoprolol, hypertension, paroxysmal SVT who presents to the ER with generalized achiness, fatigue, lower back discomfort, feeling of feverishness, difficulty voiding and was recommended for admission for increased risk pneumonia with occurred 65 of 2. Ranulfo reports for 1 week has felt very weak and nauseus. Aching muscles and joints all over. 2 months ago had a prostate operation which actually helped a lot, seemed to have no trouble urinating 1 week ago had decreased voiding down to a trickle. Didnt have a strong void to urge, thinks maybe he just wasn't making much urine Mild intermittent cough 'hours apart' but no recent persistent cough No fevers. Had chills yesterday +night sweats, has some night sweats normally but seemed worse with chills last 1-2 days with hot-cold alternating chills eating and drinking poorly for a few days, first real meal in last day or two was today. Took all his medications this morning No diarrhea or stomach upset Hx afib, on xarelto Medical History: Reviewed Medications: Reviewed Surgical History: Reviewed Family history: Reviewed Allergies: Reviewed Social History: No tobacco or etoh use Code Status: DNR/DNI Admission Exam Per Admitting Provider General: A&Ox3. NAD. Cooperative. HEENT: Atraumatic, normocephalic. Dukas membranes dry. Vision/hearing grossly intact Pulm: CTAB A&P. -wheezes, -rales, -rhonchi. Symmetrical chest rise. No increased work of breathing. No respiratory distress. Cardiac: Irregular, tachycardic. Radial pulses intact and symmetrical. Abdominal: Nontender, nondistended, soft. BS present. Extremities: Warm, dry. No edema Principal Diagnosis Community acquired pneumonia Discharge Exam General: No acute distress HEENT: Normal conjunctiva, anicteric sclerae. Respiratory: Normal respiratory effort, CTAB, no crackles or wheezes. Cardiovascular: RRR without murmurs, gallops, or rubs. No pedal edema Neuro: Alert and oriented x3. Discharge Data Allergies Allergy/AdvReac Type Severity Reaction Status Date / Time adhesive Allergy Intermediate RASH/BLISTE Verified 01/27/23 06:01 RS grass pollen Allergy Intermediate congestion Verified 01/27/23 06:01 Iodinated Contrast Media Allergy Intermediate NAUSEA & Verified 01/27/23 06:01 VOMIT pollen extracts Allergy Intermediate congestion Verified 01/27/23 06:01 tree and shrub pollen Allergy Intermediate congestion Verified 01/27/23 06:01 latex Allergy Mild Rash Verified 01/27/23 06:01 ciprofloxacin AdvReac Intermediate DISORIENTAT Verified 01/27/23 06:01 ION metronidazole AdvReac Intermediate DISORIENTAT Verified 01/27/23 06:01 ION Consultations 04/09/23 17:10 ED Decision to Admit Stat Diabetes Follow up Diabetes Follow-up Needed for HgbA1c >9% Hospital Course (1) Pneumonia: 72 M with past medical history of A-fib with RVR (controlled on metoprolol, rivaroxaban), CKD, DM 2 (metformin), who presented to the emergency room with fatigue, hypoxia to the 80s and was admitted for management of presumed community-acquired pneumonia. Acute hypoxic respiratory failure 2/2 community acquired pneumonia -CXR: Airspace opacity of left lateral lung -Leukocytosis of 11.48 on admission, procalcitonin negative, RVP negative -Legionella antigen pending at time of discharge -Received ceftriaxone/azithromycin PO in hospital, discharged with cefdinir/azithromycin to complete 7 days of treatment, concluding on 04/15 -Stable on RA during hospital stay Atrial fibrillation with RVR -With mild RVR rate around 110 on admission with clinical volume depletion. Improved with IV hydration, . -sinus at time of discharge * Continue digoxin * Continue metoprolol -Continue Xarelto EMRE in setting of CKD3 -Creatinine baseline approximately 1.41.7, 1.98 on admission -Cr improved with IVF repletion, 1.5 on day of discharge- at baseline Generalized weakness -Diffuse with muscle aches, deconditioning suspected Suspected due to infectious etiology, management as above * PT/OT evaluation completed- pt safe to return home Hyponatremia, acute -New hyponatremia of 131 on admission -Likely secondary to dehydration secondary to primary process. Improved with NSS repletion -Na 137 on day of discharge Type II DM -Managed with metformin outpatient. * Home metformin held on admission. resumed on discharge * To continue home insulin regimen on discharge. * No incidents of hypo/hyperglycemia noted during admission Total Time Total Time Spent Total Time Spent (In Minutes): 30 Discharge Plan Discharge Items Patient Disposition: Home - Self-Care Reason For Visit: PNEUMONIA,ACUTE HYPOXIC RESP FAILURE Discharge Diagnosis: Pneumonia Activity: Resume your previous activity Non-emergency contact: Primary Care Provider Call non-emergency contact if: you have any medication questions, your symptoms worsen and you have a fever Follow-up/Referrals: Madan Kay DO [Resident] - 04/21/23 10:45 am Diet: Carb Consistent or DM2 Addtl Attending Provider Instructions: You were admitted to the hospital for pneumonia. You were treated with antibiotics which has resolved the infection. A discharge summary will be sent to your primary care physician to ensure continuity of care. Please bring this discharge summary with you to your next office appointment so that your provider can review it at that time. Follow-up appointments: - We have scheduled a follow-up appointment with Dr. Madan Kay at 10:45 PM on 04/21. Medications: Your medication list has been reviewed and reconciled upon discharge to ensure accuracy and continuity of care. An updated list of all your medications is included with your hospital discharge paperwork. Please review this list closely, and make note of any changes. -We sent new medications called cefdinir and azithromycin to the pharmacy. These are antibiotics to treat the remainder of your pneumonia. You will take cefdinir 300 mg tonight and then twice a day (12 hours apart) for the next 3 days. You will also take azithromycin 250 mg daily in the morning for the next 3 days. Your last day of antibiotics will be Sunday 04/15. This will complete 7 days of treatment. Take your medications as instructed; do not skip a dose of your medicines. Make sure all of your doctors know every medicine you are taking (including [id number] medicines, vitamins, and supplements). Call your primary care provider before taking any new medicines (including [id number] medicines, vitamins, and supplements), because some of these may interact with your current medications, or may make your symptoms worse. Tell your primary care provider if you cannot afford your medications. CONTACT YOUR PRIMARY CARE PROVIDER if you experience any of the following: -Fever -Cough -Chills -Difficulty breathing -Fatigue - Difficulty following your treatment plan, or difficulty taking medications CALL 911 OR GO TO THE EMERGENCY DEPARTMENT if you experience any of the following: - Sudden, severe abdominal pain or nausea/vomiting - Severe chest pain, or chest pain that radiates (moves) to your jaw or arm - Sudden, severe shortness of breath or difficulty breathing Thank you for allowing us to participate in your care Pending Studies at Discharge: No Stand-Alone Forms: My [facility] Medications and DC Order Prescriptions: New azithromycin 250 mg Tablet 250 mg PO QAM 3 Days Qty: 3 0RF cefdinir 300 mg capsule 300 mg PO BID 3 Days Qty: 7 0RF Continued Xarelto 20 mg tablet 20 mg PO QPM Qty: 90 3RF Rx Instructions: must administer with a meal/food metoprolol succinate 100 mg tablet extended release 24 hr 100 mg PO BID Qty: 180 3RF finasteride 5 mg tablet 5 mg PO QPM Qty: 90 3RF tamsulosin 0.4 mg capsule 0.4 mg PO HS Qty: 90 3RF diclofenac sodium 75 mg tablet,delayed release (DR/EC) 75 mg PO BID PRN (Reason: Pain) triamterene-hydrochlorothiazid 37.5-25 mg tablet 1 tab PO QPM metformin 500 mg Tablet 500 mg PO BID digoxin 125 mcg (0.125 mg) tablet 125 mcg PO QAM lisinopril 0 mg PO DAILY Rx Instructions: Per pt he isn't sure of dose, thinks maybe 20 mg insulin glargine [Lantus Solostar U-100 Insulin] 100 unit/mL (3 mL) insulin pen 30 unit SUBCUT PM Patient Comments: on 01-20-23 per pt is now 30 units in the pm cetirizine [Zyrtec] 10 mg tablet 10 mg PO DAILY PRN (Reason: Allergy Symptoms) Discharge Orders: Discharge Order (Routine); Ordered 04/12/23 Ordered By: Yunior Hunter Admission Data Admit Date/Time: 04/09/23 16:07 Attending Provider: Ирина Quiroz Admit Provider: Manny Martínez Primary Care Provider: Sandoval Burgos Other Providers: Manny Martínez ; Ayad Cortes Other Interventions: Discharge Summary Assessment (RN) Last Done: 04/12/23 10:54 Supervising Physician Co-Signing Physician Notes Resident Physician Supervision Note: I independently interviewed and examined the patient and verified the jackson history and physical, reviewed labs and image studies and agree with resident findings and care plan. Resident Activity Tracking Resident Involvement: Resident Care Provided Care Provided: Adult [facility]
== END 2023-04-12 11:50 | disposition home or self-care (01) | DRG 193 ==
LOC: ED 08:05 → SUATTDRO 16:07 → 2S 16:07